=== PATIENT | male | born 1935 | race Asian ===

== ENCOUNTER 2017-09-21 21:09 | Inpatient (IN) | payer MEDICAID, OTHER ==
[~2017-09-21] VITALS: Ht 172.7 cm; Wt 63.4 kg
[2017-09-21 22:01] LABS: BASOPHILS # (AUTO) 0.1 X10'3 (0-0.2); BASOPHILS % (AUTO) 0.8 % (0-1); EOSINOPHILS # (AUTO) 0.2 X10'3 (0-0.9); EOSINOPHILS % (AUTO) 2.8 % (0-6); HEMATOCRIT 42.2 % (42.0-52.0); HEMOGLOBIN 14.4 g/dl (14.0-17.9); LYMPHOCYTES # (AUTO) 1.7 X10'3 (1.1-4.8); LYMPHOCYTES % (AUTO) 24.3 % (21-51); MEAN CORPUSCULAR HEMOGLOBIN 29.8 PG (27.0-31.0); MEAN CORPUSCULAR HGB CONC 34.1 % (33.0-36.5); MEAN CORPUSCULAR VOLUME 87.2 FL (78-98); MEAN PLATELET VOLUME 8.1 FL (7.4-10.4); MONOCYTES # (AUTO) 0.6 X10'3 (0-0.9); MONOCYTES % (AUTO) 8.1 % (2-12); NEUTROPHILS # (AUTO) 4.5 X10'3 (1.8-7.7); PLATELET COUNT 204 X10'3 (140-440); RED BLOOD COUNT 4.84 X10'6 (4.70-6.10); RED CELL DISTRIBUTION WIDTH 14.3 % (11.5-14.5)
[2017-09-21] MEDS ORDERED: nitroGLYCERIN 1gm ointment UD TP ONE (22:05)
[2017-09-21] MEDS ORDERED: aspirin 81mg tab.chew PO ONE (22:05)
[2017-09-21 22:11] LABS: INR 1.1 INR; PARTIAL THROMBOPLASTIN TIME 28 SECONDS (22-32); PROTHROMBIN TIME 10.9 SECONDS (9.0-12.0)
[2017-09-21 22:14] LABS: ALANINE AMINOTRANSFERASE 43 U/L (12-78); ALBUMIN 3.4 G/DL (3.4-5.0); ALBUMIN/GLOBULIN RATIO 0.7 (1.1-1.5); ALKALINE PHOSPHATASE 78 IU/L (46-116); ANION GAP 9 (8-16); ASPARTATE AMINO TRANSFERASE 47 U/L (10-37); BILIRUBIN,TOTAL 0.8 MG/DL (0.1-1.0); BLOOD UREA NITROGEN 29 MG/DL (7-18); CALCIUM 8.5 MG/DL (8.5-10.1); CHLORIDE 106 MMOL/L (99-107); CREATININE 1.45 MG/DL (0.60-1.10); GLUCOSE 257 MG/DL (70-104); SODIUM 139 MMOL/L (135-145); TOTAL PROTEIN 8.4 G/DL (6.4-8.2); eGFR 47 ML/MIN
[2017-09-21] MEDS ORDERED: NO HOME MEDS (22:28)
[2017-09-21] MEDS ORDERED: enoxaparin 100mg/ml syringe SUBCUT ONE (22:35)
[2017-09-21] MEDS ORDERED: ondansetron/PF 4mg/2ml inj IV PRN (22:55)
[2017-09-21] MEDS ORDERED: magnesium hydroxide 30ml (MOM) UD suspension PO PRN (22:55)
[2017-09-21] MEDS ORDERED: mag hydrox/Alum hydrox/simeth 30ml oral suspension PO PRN (22:55)
[2017-09-21] MEDS ORDERED: acetaminophen 325mg tablet PO PRN (22:55)
[2017-09-21] MEDS ORDERED: metoprolol tartrate 1mg/ml inj IV ONE (23:00)
[2017-09-21] MEDS ORDERED: MESSAGE TO PHARMACY PO ONE (23:05)
[2017-09-21] MEDS ORDERED: insulin Lispro (HumaLOG) vial - multi-dose SQ SCH (23:05)
[2017-09-21] MEDS ORDERED: dextrose 50%-water 50ml dispensing syringe IV PRN ×2 (23:05)
[2017-09-21] MEDS ORDERED: dextrose ORAL solution 15 GM/59 ML bottle PO PRN ×2 (23:05)
[2017-09-21] MEDS ORDERED: glucagon, human recombinant 1mg kit SUBCUT PRN (23:05)
[2017-09-21 23:17] LABS: HEMOGLOBIN A1C 5.8 % (4.5-6.2)
[2017-09-22] VITALS (15 sets, daily range): BP systolic 126–158; BP diastolic 79–106
[2017-09-22] MEDS: metoprolol tartrate 50mg tablet PO SCH ×3 (01:07→20:01)
[2017-09-22 03:24] LABS: BASOPHILS # (AUTO) 0.1 X10'3 (0-0.2); EOSINOPHILS # (AUTO) 0.1 X10'3 (0-0.9); EOSINOPHILS % (AUTO) 2.1 % (0-6); HEMATOCRIT 41.4 % (42.0-52.0); HEMOGLOBIN 14.1 g/dl (14.0-17.9); LYMPHOCYTES # (AUTO) 1.1 X10'3 (1.1-4.8); LYMPHOCYTES % (AUTO) 19.2 % (21-51); MEAN CORPUSCULAR HEMOGLOBIN 29.6 PG (27.0-31.0); MEAN CORPUSCULAR HGB CONC 34.2 % (33.0-36.5); MEAN CORPUSCULAR VOLUME 86.7 FL (78-98); MEAN PLATELET VOLUME 8.2 FL (7.4-10.4); MONOCYTES # (AUTO) 0.6 X10'3 (0-0.9); MONOCYTES % (AUTO) 10.1 % (2-12); NEUTROPHILS % (AUTO) 67.6 % (42-75); PLATELET COUNT 195 X10'3 (140-440); RED BLOOD COUNT 4.77 X10'6 (4.70-6.10); RED CELL DISTRIBUTION WIDTH 14.3 % (11.5-14.5); WHITE BLOOD COUNT 5.9 X10'3 (4.5-11.0)
[2017-09-22 03:43] LABS: ALANINE AMINOTRANSFERASE 41 U/L (12-78); ALBUMIN 3.2 G/DL (3.4-5.0); ALBUMIN/GLOBULIN RATIO 0.7 (1.1-1.5); ALKALINE PHOSPHATASE 72 IU/L (46-116); ANION GAP 9 (8-16); ASPARTATE AMINO TRANSFERASE 85 U/L (10-37); BILIRUBIN,TOTAL 0.6 MG/DL (0.1-1.0); BLOOD UREA NITROGEN 30 MG/DL (7-18); BUN/CREATININE RATIO 24.6 (5.4-32.0); CALCIUM 8.6 MG/DL (8.5-10.1); CHLORIDE 108 MMOL/L (99-107); CHOL/HDL RATIO 4.2 (0.00-4.99); CHOLESTEROL 195 MG/DL (0-200); CREATININE 1.22 MG/DL (0.60-1.10); GLUCOSE 110 MG/DL (70-104); HDL CHOLESTEROL 46 MG/DL (35-60); LDL CHOLESTEROL 133 MG/DL (50-100); POTASSIUM 4.1 MMOL/L (3.5-5.1); SODIUM 140 MMOL/L (135-145); TRIGLYCERIDES 105 MG/DL (20-135); eGFR 57 ML/MIN
[2017-09-22] MEDS ORDERED: pneumococcal 23-VAL P-sac vacc 25 mcg/0.5ml vial IMVAC ONE (06:25)
[2017-09-22] MEDS ORDERED: aspirin 325mg tablet PO SCH (08:30)
[2017-09-22] MEDS: atorvastatin 20mg tablet PO SCH (08:36)
[2017-09-22] MEDS: enoxaparin 30mg/0.3ml syringe SUBCUT SCH ×2 (08:36→20:01)
[2017-09-22] MEDS: aspirin 81mg tablet.DR PO SCH (08:36)
[2017-09-22] MEDS: enoxaparin 40mg/0.4ml syringe SUBCUT SCH ×2 (08:37→20:01)
[2017-09-22] MEDS ORDERED: morphine 2 MG/ML inj. syringe IV PRN (09:05)
[2017-09-22] MEDS: furosemide 20 MG/2 ML vial IV SCH ×2 (09:32→20:01)
[2017-09-22] MEDS: potassium Cl 20 mEq SR tablet PO SCH (09:32)
[2017-09-22] MEDS ORDERED: iohexol 350 MG/ML 50ML vial IV ONE ×3 (12:00→12:53)
[2017-09-22] MEDS ORDERED: LIDOcaine 1% w/EPI 1:100,000 30ml vial (MDV) ONE (12:00)
[2017-09-22] MEDS ORDERED: iohexol 350MG/ML 100ml bottle IV ONE (12:00)
[2017-09-22] MEDS ORDERED: midazolam 2 mg/2 ml injection ONE (12:25)
[2017-09-22] MEDS ORDERED: fentaNYL/PF 50MCG/1 ML 2ML syringe ONE (12:25)
[2017-09-22] MEDS ORDERED: ondansetron/PF 4mg/2ml inj IV PRN (13:40)
[2017-09-22] MEDS ORDERED: HYDROcodone/acetaminophen 5mg/325mg tablet PO PRN (13:40)
[2017-09-22] MEDS ORDERED: acetaminophen 325mg tablet PO PRN (13:45)
[2017-09-22] MEDS ORDERED: HYDROcodone/acetaminophen 10/325mg tab PO PRN (13:45)
[2017-09-22] MEDS ORDERED: proCHLORperazine 10 MG/2 ml inj IV PRN (13:45)
[2017-09-22] MEDS ORDERED: sodium chloride 0.45% 1,000 ML IV SCH (13:45)
[2017-09-22] MEDS: lisinopril 5mg tablet PO SCH (17:14)
[2017-09-22] MEDS ORDERED: insulin glargine (Lantus) pen - multi-dose SQ SCH (21:00)
[2017-09-23 02:00] VITALS: BP 145/92
[2017-09-23] MEDS: OXAZEpam 15mg capsule PO PRN (02:59)
[2017-09-23 05:23] LABS: BASOPHILS % (AUTO) 0.2 % (0-1); EOSINOPHILS # (AUTO) 0.1 X10'3 (0-0.9); EOSINOPHILS % (AUTO) 0.7 % (0-6); HEMATOCRIT 42.4 % (42.0-52.0); HEMOGLOBIN 14.5 g/dl (14.0-17.9); LYMPHOCYTES % (AUTO) 12.6 % (21-51); MEAN CORPUSCULAR HEMOGLOBIN 29.5 PG (27.0-31.0); MEAN CORPUSCULAR HGB CONC 34.2 % (33.0-36.5); MEAN CORPUSCULAR VOLUME 86.3 FL (78-98); MEAN PLATELET VOLUME 9.1 FL (7.4-10.4); MONOCYTES # (AUTO) 0.8 X10'3 (0-0.9); MONOCYTES % (AUTO) 10.1 % (2-12); NEUTROPHILS % (AUTO) 76.4 % (42-75); PLATELET COUNT 206 X10'3 (140-440); RED BLOOD COUNT 4.91 X10'6 (4.70-6.10); RED CELL DISTRIBUTION WIDTH 13.7 % (11.5-14.5); WHITE BLOOD COUNT 7.8 X10'3 (4.5-11.0)
[2017-09-23 05:36] LABS: ALANINE AMINOTRANSFERASE 41 U/L (12-78); ALBUMIN 3.1 G/DL (3.4-5.0); ALBUMIN/GLOBULIN RATIO 0.6 (1.1-1.5); ALKALINE PHOSPHATASE 74 IU/L (46-116); ANION GAP 12 (8-16); ASPARTATE AMINO TRANSFERASE 50 U/L (10-37); BILIRUBIN,TOTAL 0.8 MG/DL (0.1-1.0); BLOOD UREA NITROGEN 38 MG/DL (7-18); BUN/CREATININE RATIO 25.2 (5.4-32.0); CALCIUM 8.8 MG/DL (8.5-10.1); CHLORIDE 105 MMOL/L (99-107); CREATININE 1.51 MG/DL (0.60-1.10); GLUCOSE 141 MG/DL (70-104); SODIUM 140 MMOL/L (135-145); TOTAL CARBON DIOXIDE 23.2 MMOL/L (24-32); TOTAL PROTEIN 7.9 G/DL (6.4-8.2); eGFR 45 ML/MIN
[2017-09-23 05:51] LABS: TROPONIN I 13.01 NG/ML (0.0-0.05)
[2017-09-23 06:31] VITALS: BP 143/66
[2017-09-23] MEDS: metoprolol tartrate 50mg tablet PO SCH ×2 (07:26→20:24)
[2017-09-23] MEDS: aspirin 81mg tablet.DR PO SCH (07:26)
[2017-09-23] MEDS: lisinopril 5mg tablet PO SCH ×2 (07:26→20:24)
[2017-09-23] MEDS: potassium Cl 20 mEq SR tablet PO SCH (07:26)
[2017-09-23] MEDS: atorvastatin 20mg tablet PO SCH (07:26)
[2017-09-23] MEDS: furosemide 20 MG/2 ML vial IV SCH ×2 (07:26→20:24)
[2017-09-23] MEDS: enoxaparin 30mg/0.3ml syringe SUBCUT SCH ×2 (07:27→20:25)
[2017-09-23] MEDS: enoxaparin 40mg/0.4ml syringe SUBCUT SCH ×2 (07:27→20:25)
[2017-09-23 11:37] VITALS: BP 137/79
[2017-09-23 15:00] VITALS: BP 122/75
[2017-09-23 18:00] VITALS: BP 129/74
[2017-09-23 22:00] VITALS: BP 123/68
[2017-09-24 02:00] VITALS: BP 130/83
[2017-09-24 06:00] VITALS: BP 138/87
[2017-09-24] MEDS: furosemide 20 MG/2 ML vial IV SCH ×2 (07:22→21:18)
[2017-09-24] MEDS: potassium Cl 20 mEq SR tablet PO SCH (07:22)
[2017-09-24] MEDS: metoprolol tartrate 50mg tablet PO SCH ×2 (07:22→21:18)
[2017-09-24] MEDS: atorvastatin 20mg tablet PO SCH (07:22)
[2017-09-24] MEDS: enoxaparin 40mg/0.4ml syringe SUBCUT SCH ×2 (07:23→21:21)
[2017-09-24] MEDS: enoxaparin 30mg/0.3ml syringe SUBCUT SCH ×2 (07:23→21:19)
[2017-09-24] MEDS: lisinopril 5mg tablet PO SCH ×2 (07:23→21:18)
[2017-09-24] MEDS: aspirin 81mg tablet.DR PO SCH (07:25)
[2017-09-24 08:32] LABS: ALANINE AMINOTRANSFERASE 38 U/L (12-78); ALBUMIN 2.9 G/DL (3.4-5.0); ALBUMIN/GLOBULIN RATIO 0.6 (1.1-1.5); ALKALINE PHOSPHATASE 67 IU/L (46-116); ANION GAP 7 (8-16); ASPARTATE AMINO TRANSFERASE 33 U/L (10-37); BILIRUBIN,TOTAL 0.9 MG/DL (0.1-1.0); BLOOD UREA NITROGEN 51 MG/DL (7-18); BUN/CREATININE RATIO 31.7 (5.4-32.0); CALCIUM 8.7 MG/DL (8.5-10.1); CHLORIDE 104 MMOL/L (99-107); CREATININE 1.61 MG/DL (0.60-1.10); GLUCOSE 113 MG/DL (70-104); POTASSIUM 3.5 MMOL/L (3.5-5.1); SODIUM 138 MMOL/L (135-145); TOTAL CARBON DIOXIDE 26.7 MMOL/L (24-32); TOTAL PROTEIN 7.4 G/DL (6.4-8.2); eGFR 41 ML/MIN
[2017-09-24 11:00] VITALS: BP 127/78
[2017-09-24 15:00] VITALS: BP 133/74
[2017-09-24] MEDS: nitroGLYCERIN 0.2mg/hour patch TD SCH (17:23)
[2017-09-24 18:00] VITALS: BP 125/48
[2017-09-24 22:00] VITALS: BP 118/65
[2017-09-25] MEDS: OXAZEpam 15mg capsule PO PRN (01:01)
[2017-09-25 02:00] VITALS: BP 105/52
[2017-09-25 05:35] LABS: ALANINE AMINOTRANSFERASE 60 U/L (12-78); ALBUMIN 2.7 G/DL (3.4-5.0); ALBUMIN/GLOBULIN RATIO 0.6 (1.1-1.5); ALKALINE PHOSPHATASE 77 IU/L (46-116); ANION GAP 5 (8-16); ASPARTATE AMINO TRANSFERASE 53 U/L (10-37); BILIRUBIN,TOTAL 0.8 MG/DL (0.1-1.0); BLOOD UREA NITROGEN 48 MG/DL (7-18); CALCIUM 8.4 MG/DL (8.5-10.1); CHLORIDE 102 MMOL/L (99-107); CREATININE 1.41 MG/DL (0.60-1.10); GLUCOSE 134 MG/DL (70-104); POTASSIUM 3.4 MMOL/L (3.5-5.1); SODIUM 135 MMOL/L (135-145); TOTAL CARBON DIOXIDE 28.5 MMOL/L (24-32); TOTAL PROTEIN 7.3 G/DL (6.4-8.2); eGFR 48 ML/MIN
[2017-09-25 07:00] VITALS: BP 120/73
[2017-09-25] MEDS: potassium Cl 20 mEq SR tablet PO SCH ×2 (07:25→19:39)
[2017-09-25] MEDS: lisinopril 5mg tablet PO SCH ×2 (07:25→19:39)
[2017-09-25] MEDS: furosemide 20 MG/2 ML vial IV SCH ×2 (07:25→19:38)
[2017-09-25] MEDS: enoxaparin 40mg/0.4ml syringe SUBCUT SCH ×2 (07:25→19:41)
[2017-09-25] MEDS: enoxaparin 30mg/0.3ml syringe SUBCUT SCH ×2 (07:25→19:40)
[2017-09-25] MEDS: metoprolol tartrate 50mg tablet PO SCH ×2 (07:25→19:38)
[2017-09-25] MEDS: atorvastatin 20mg tablet PO SCH (07:25)
[2017-09-25] MEDS: aspirin 81mg tablet.DR PO SCH (07:31)
[2017-09-25] MEDS: nitroGLYCERIN 0.2mg/hour patch TD SCH (10:24)
[2017-09-25 11:00] VITALS: BP 106/62
[2017-09-25 15:00] VITALS: BP 116/64
[2017-09-25 19:00] VITALS: BP 99/48
[2017-09-25 23:00] VITALS: BP 91/45
[2017-09-26 03:00] VITALS: BP 129/71
[2017-09-26 05:20] LABS: BASOPHILS % (AUTO) 0.5 % (0-1); EOSINOPHILS # (AUTO) 0.5 X10'3 (0-0.9); EOSINOPHILS % (AUTO) 7.4 % (0-6); HEMATOCRIT 41.3 % (42.0-52.0); HEMOGLOBIN 14.2 g/dl (14.0-17.9); LYMPHOCYTES # (AUTO) 1.1 X10'3 (1.1-4.8); MEAN CORPUSCULAR HEMOGLOBIN 29.9 PG (27.0-31.0); MEAN CORPUSCULAR HGB CONC 34.5 % (33.0-36.5); MEAN CORPUSCULAR VOLUME 86.6 FL (78-98); MEAN PLATELET VOLUME 8.7 FL (7.4-10.4); MONOCYTES # (AUTO) 0.9 X10'3 (0-0.9); MONOCYTES % (AUTO) 12.8 % (2-12); NEUTROPHILS # (AUTO) 4.7 X10'3 (1.8-7.7); NEUTROPHILS % (AUTO) 64.3 % (42-75); PLATELET COUNT 189 X10'3 (140-440); RED BLOOD COUNT 4.76 X10'6 (4.70-6.10); RED CELL DISTRIBUTION WIDTH 14.5 % (11.5-14.5); WHITE BLOOD COUNT 7.3 X10'3 (4.5-11.0)
[2017-09-26 05:34] LABS: ALANINE AMINOTRANSFERASE 62 U/L (12-78); ALBUMIN 2.7 G/DL (3.4-5.0); ALBUMIN/GLOBULIN RATIO 0.6 (1.1-1.5); ALKALINE PHOSPHATASE 94 IU/L (46-116); ANION GAP 6 (8-16); ASPARTATE AMINO TRANSFERASE 43 U/L (10-37); BILIRUBIN,TOTAL 0.8 MG/DL (0.1-1.0); BLOOD UREA NITROGEN 47 MG/DL (7-18); BUN/CREATININE RATIO 28.3 (5.4-32.0); CALCIUM 8.4 MG/DL (8.5-10.1); CHLORIDE 101 MMOL/L (99-107); CREATININE 1.66 MG/DL (0.60-1.10); GLUCOSE 130 MG/DL (70-104); POTASSIUM 4.3 MMOL/L (3.5-5.1); SODIUM 136 MMOL/L (135-145); TOTAL CARBON DIOXIDE 29.4 MMOL/L (24-32); TOTAL PROTEIN 7.4 G/DL (6.4-8.2); eGFR 40 ML/MIN
[2017-09-26 07:00] VITALS: BP 114/64
[2017-09-26] MEDS: furosemide 20 MG/2 ML vial IV SCH (07:44)
[2017-09-26] MEDS: potassium Cl 20 mEq SR tablet PO SCH (07:44)
[2017-09-26] MEDS: atorvastatin 20mg tablet PO SCH (07:44)
[2017-09-26] MEDS: aspirin 81mg tablet.DR PO SCH (07:44)
[2017-09-26] MEDS: enoxaparin 40mg/0.4ml syringe SUBCUT SCH (07:44)
[2017-09-26] MEDS: enoxaparin 30mg/0.3ml syringe SUBCUT SCH (07:44)
[2017-09-26] MEDS: lisinopril 5mg tablet PO SCH ×2 (07:44→19:34)
[2017-09-26] MEDS: metoprolol tartrate 50mg tablet PO SCH ×2 (07:45→19:34)
[2017-09-26] MEDS: nitroGLYCERIN 0.2mg/hour patch TD SCH (07:48)
[2017-09-26 15:00] VITALS: BP 107/46
[2017-09-26] MEDS ORDERED: guaiFENesin/DM 10ml UD oral syrup PO PRN (15:00)
[2017-09-26 19:00] VITALS: BP 121/56
[2017-09-26] MEDS ORDERED: guaiFENesin/DM oral syrup 5 ML CUP PO PRN (19:31)
[2017-09-26 23:00] VITALS: BP 103/55
[2017-09-27 03:00] VITALS: BP 113/56
[2017-09-27 05:50] LABS: ALBUMIN 2.7 G/DL (3.4-5.0); ANION GAP 6 (8-16); BLOOD UREA NITROGEN 48 MG/DL (7-18); BUN/CREATININE RATIO 32.7 (5.4-32.0); CALCIUM 8.4 MG/DL (8.5-10.1); CHLORIDE 101 MMOL/L (99-107); CREATININE 1.47 MG/DL (0.60-1.10); GLUCOSE 115 MG/DL (70-104); POTASSIUM 4.5 MMOL/L (3.5-5.1); SODIUM 135 MMOL/L (135-145); TOTAL CARBON DIOXIDE 28.3 MMOL/L (24-32); eGFR 46 ML/MIN
[2017-09-27 07:00] VITALS: BP 120/63
[2017-09-27] MEDS: nitroGLYCERIN 0.2mg/hour patch TD SCH (07:08)
[2017-09-27] MEDS: aspirin 81mg tablet.DR PO SCH (07:09)
[2017-09-27] MEDS: metoprolol tartrate 50mg tablet PO SCH ×2 (07:09→18:59)
[2017-09-27] MEDS: potassium Cl 20 mEq SR tablet PO SCH (07:09)
[2017-09-27] MEDS: atorvastatin 20mg tablet PO SCH (07:09)
[2017-09-27] MEDS: furosemide 20 MG/2 ML vial IV SCH (07:10)
[2017-09-27] MEDS: lisinopril 5mg tablet PO SCH ×2 (07:10→18:59)
[2017-09-27] MEDS: enoxaparin 60mg/0.6ml syringe SUBCUT SCH (07:10)
[2017-09-27 11:00] VITALS: BP 104/48
[2017-09-27 15:00] VITALS: BP 116/59
[2017-09-27 19:00] VITALS: BP 118/61
[2017-09-27 23:00] VITALS: BP 118/58
[2017-09-28 03:00] VITALS: BP 118/54
[2017-09-28 06:00] VITALS: BP 119/59
[2017-09-28 06:09] LABS: ALBUMIN 2.8 G/DL (3.4-5.0); ANION GAP 5 (8-16); BLOOD UREA NITROGEN 45 MG/DL (7-18); BUN/CREATININE RATIO 26.2 (5.4-32.0); CALCIUM 8.7 MG/DL (8.5-10.1); CHLORIDE 100 MMOL/L (99-107); CREATININE 1.72 MG/DL (0.60-1.10); GLUCOSE 121 MG/DL (70-104); POTASSIUM 4.6 MMOL/L (3.5-5.1); SODIUM 134 MMOL/L (135-145); TOTAL CARBON DIOXIDE 29.3 MMOL/L (24-32); eGFR 38 ML/MIN
[2017-09-28] MEDS: potassium Cl 20 mEq SR tablet PO SCH (07:21)
[2017-09-28] MEDS: furosemide 20 MG/2 ML vial IV SCH (07:21)
[2017-09-28] MEDS: metoprolol tartrate 50mg tablet PO SCH ×2 (07:22→20:12)
[2017-09-28] MEDS: lisinopril 5mg tablet PO SCH ×2 (07:22→20:12)
[2017-09-28] MEDS: enoxaparin 60mg/0.6ml syringe SUBCUT SCH (07:22)
[2017-09-28] MEDS: atorvastatin 20mg tablet PO SCH (07:22)
[2017-09-28] MEDS: nitroGLYCERIN 0.2mg/hour patch TD SCH ×2 (07:26→07:29)
[2017-09-28] MEDS: aspirin 81mg tablet.DR PO SCH (07:28)
[2017-09-28 14:15] VITALS: BP 103/57
[2017-09-28 19:00] VITALS: BP 112/56
[2017-09-28 23:00] VITALS: BP 112/59
[2017-09-29 03:00] VITALS: BP 111/60
[2017-09-29 05:07] LABS: BASOPHILS # (AUTO) 0.1 X10'3 (0-0.2); BASOPHILS % (AUTO) 0.7 % (0-1); EOSINOPHILS # (AUTO) 0.7 X10'3 (0-0.9); EOSINOPHILS % (AUTO) 9.2 % (0-6); HEMATOCRIT 40.9 % (42.0-52.0); HEMOGLOBIN 13.9 g/dl (14.0-17.9); LYMPHOCYTES # (AUTO) 1.2 X10'3 (1.1-4.8); LYMPHOCYTES % (AUTO) 17.1 % (21-51); MEAN CORPUSCULAR HEMOGLOBIN 29.5 PG (27.0-31.0); MEAN CORPUSCULAR HGB CONC 33.9 % (33.0-36.5); MEAN PLATELET VOLUME 8.7 FL (7.4-10.4); MONOCYTES # (AUTO) 0.8 X10'3 (0-0.9); MONOCYTES % (AUTO) 11.2 % (2-12); NEUTROPHILS # (AUTO) 4.5 X10'3 (1.8-7.7); NEUTROPHILS % (AUTO) 61.8 % (42-75); PLATELET COUNT 200 X10'3 (140-440); RED CELL DISTRIBUTION WIDTH 13.9 % (11.5-14.5); WHITE BLOOD COUNT 7.3 X10'3 (4.5-11.0)
[2017-09-29 05:59] LABS: ALBUMIN 2.7 G/DL (3.4-5.0); ANION GAP 5 (8-16); BLOOD UREA NITROGEN 46 MG/DL (7-18); BUN/CREATININE RATIO 28.6 (5.4-32.0); CALCIUM 8.5 MG/DL (8.5-10.1); CHLORIDE 101 MMOL/L (99-107); CREATININE 1.61 MG/DL (0.60-1.10); GLUCOSE 122 MG/DL (70-104); SODIUM 134 MMOL/L (135-145); TOTAL CARBON DIOXIDE 28.1 MMOL/L (24-32); eGFR 41 ML/MIN
[2017-09-29 06:59] VITALS: BP 123/61
[2017-09-29] MEDS: potassium Cl 20 mEq SR tablet PO SCH (08:00)
[2017-09-29] MEDS: nitroGLYCERIN 0.2mg/hour patch TD SCH (08:00)
[2017-09-29] MEDS: lisinopril 5mg tablet PO SCH ×2 (08:39→19:58)
[2017-09-29] MEDS: metoprolol tartrate 50mg tablet PO SCH ×2 (08:39→19:58)
[2017-09-29] MEDS: furosemide 20 MG/2 ML vial IV SCH (08:39)
[2017-09-29] MEDS: atorvastatin 20mg tablet PO SCH (08:39)
[2017-09-29] MEDS: aspirin 81mg tablet.DR PO SCH (08:39)
[2017-09-29] MEDS: enoxaparin 60mg/0.6ml syringe SUBCUT SCH (08:40)
[2017-09-29 11:00] VITALS: BP 112/58
[2017-09-29 15:00] VITALS: BP 107/53
[2017-09-29 18:00] VITALS: BP 121/59
[2017-09-29 22:00] VITALS: BP 120/63
[2017-09-30 02:00] VITALS: BP 123/70
[2017-09-30 04:49] LABS: BASOPHILS # (AUTO) 0.1 X10'3 (0-0.2); BASOPHILS % (AUTO) 0.8 % (0-1); EOSINOPHILS # (AUTO) 0.7 X10'3 (0-0.9); EOSINOPHILS % (AUTO) 10.3 % (0-6); HEMATOCRIT 42.9 % (42.0-52.0); HEMOGLOBIN 14.5 g/dl (14.0-17.9); LYMPHOCYTES # (AUTO) 1.1 X10'3 (1.1-4.8); LYMPHOCYTES % (AUTO) 16.6 % (21-51); MEAN CORPUSCULAR HEMOGLOBIN 29.4 PG (27.0-31.0); MEAN CORPUSCULAR HGB CONC 33.7 % (33.0-36.5); MEAN CORPUSCULAR VOLUME 87.1 FL (78-98); MEAN PLATELET VOLUME 8.1 FL (7.4-10.4); MONOCYTES # (AUTO) 0.8 X10'3 (0-0.9); MONOCYTES % (AUTO) 11.5 % (2-12); NEUTROPHILS # (AUTO) 4.2 X10'3 (1.8-7.7); NEUTROPHILS % (AUTO) 60.8 % (42-75); PLATELET COUNT 219 X10'3 (140-440); RED BLOOD COUNT 4.93 X10'6 (4.70-6.10); RED CELL DISTRIBUTION WIDTH 13.8 % (11.5-14.5); WHITE BLOOD COUNT 6.9 X10'3 (4.5-11.0)
[2017-09-30 05:08] LABS: ALBUMIN 2.8 G/DL (3.4-5.0); ANION GAP 5 (8-16); BLOOD UREA NITROGEN 46 MG/DL (7-18); BUN/CREATININE RATIO 28.4 (5.4-32.0); CALCIUM 8.5 MG/DL (8.5-10.1); CHLORIDE 100 MMOL/L (99-107); CREATININE 1.62 MG/DL (0.60-1.10); GLUCOSE 120 MG/DL (70-104); POTASSIUM 4.9 MMOL/L (3.5-5.1); SODIUM 133 MMOL/L (135-145); TOTAL CARBON DIOXIDE 28.1 MMOL/L (24-32); eGFR 41 ML/MIN
[2017-09-30 06:57] VITALS: BP 122/60
[2017-09-30] MEDS: metoprolol tartrate 50mg tablet PO SCH ×2 (07:55→20:28)
[2017-09-30] MEDS: aspirin 81mg tablet.DR PO SCH (07:55)
[2017-09-30] MEDS: furosemide 20 MG/2 ML vial IV SCH (07:55)
[2017-09-30] MEDS: lisinopril 5mg tablet PO SCH ×2 (07:55→20:28)
[2017-09-30] MEDS: atorvastatin 20mg tablet PO SCH (07:55)
[2017-09-30] MEDS: potassium Cl 20 mEq SR tablet PO SCH (07:56)
[2017-09-30] MEDS: enoxaparin 60mg/0.6ml syringe SUBCUT SCH (07:56)
[2017-09-30] MEDS: nitroGLYCERIN 0.2mg/hour patch TD SCH (07:57)
[2017-09-30 11:00] VITALS: BP 105/55
[2017-09-30] MEDS ORDERED: mineral oil/petrolatum, white cream 113gm jar TP PRN (13:00)
[2017-09-30 15:00] VITALS: BP 103/48
[2017-09-30 19:00] VITALS: BP 127/57
[2017-09-30 23:00] VITALS: BP 107/52
[2017-10-01 03:00] VITALS: BP 114/52
[2017-10-01 05:35] LABS: BASOPHILS % (AUTO) 0.3 % (0-1); EOSINOPHILS # (AUTO) 0.6 X10'3 (0-0.9); EOSINOPHILS % (AUTO) 8.7 % (0-6); HEMOGLOBIN 14.4 g/dl (14.0-17.9); LYMPHOCYTES # (AUTO) 1.1 X10'3 (1.1-4.8); LYMPHOCYTES % (AUTO) 16.3 % (21-51); MEAN CORPUSCULAR HEMOGLOBIN 29.8 PG (27.0-31.0); MEAN CORPUSCULAR HGB CONC 34.2 % (33.0-36.5); MEAN CORPUSCULAR VOLUME 87.1 FL (78-98); MEAN PLATELET VOLUME 8.8 FL (7.4-10.4); MONOCYTES # (AUTO) 0.7 X10'3 (0-0.9); MONOCYTES % (AUTO) 10.4 % (2-12); NEUTROPHILS # (AUTO) 4.5 X10'3 (1.8-7.7); NEUTROPHILS % (AUTO) 64.3 % (42-75); PLATELET COUNT 217 X10'3 (140-440); RED BLOOD COUNT 4.82 X10'6 (4.70-6.10); RED CELL DISTRIBUTION WIDTH 13.6 % (11.5-14.5)
[2017-10-01 06:11] LABS: ALBUMIN 2.8 G/DL (3.4-5.0); ANION GAP 6 (8-16); BLOOD UREA NITROGEN 58 MG/DL (7-18); BUN/CREATININE RATIO 29.7 (5.4-32.0); CALCIUM 8.6 MG/DL (8.5-10.1); CHLORIDE 99 MMOL/L (99-107); CREATININE 1.95 MG/DL (0.60-1.10); GLUCOSE 119 MG/DL (70-104); POTASSIUM 4.7 MMOL/L (3.5-5.1); SODIUM 134 MMOL/L (135-145); TOTAL CARBON DIOXIDE 29.2 MMOL/L (24-32); eGFR 33 ML/MIN
[2017-10-01 07:13] VITALS: BP 115/50
[2017-10-01] MEDS: furosemide 20 MG/2 ML vial IV SCH (07:57)
[2017-10-01] MEDS: lisinopril 5mg tablet PO SCH ×2 (07:58→19:28)
[2017-10-01] MEDS: atorvastatin 20mg tablet PO SCH (07:58)
[2017-10-01] MEDS: metoprolol tartrate 50mg tablet PO SCH ×2 (07:58→19:28)
[2017-10-01] MEDS: potassium Cl 20 mEq SR tablet PO SCH (07:58)
[2017-10-01] MEDS: aspirin 81mg tablet.DR PO SCH (07:59)
[2017-10-01] MEDS: nitroGLYCERIN 0.2mg/hour patch TD SCH (07:59)
[2017-10-01] MEDS: enoxaparin 60mg/0.6ml syringe SUBCUT SCH (07:59)
[2017-10-01 11:00] VITALS: BP 105/52
[2017-10-01 15:00] VITALS: BP 106/60
[2017-10-01 19:00] VITALS: BP 113/55
[2017-10-01 23:00] VITALS: BP 110/59
[2017-10-02] VITALS (7 sets, daily range): BP systolic 98–115; BP diastolic 38–57
[2017-10-02 06:51] LABS: BASOPHILS # (AUTO) 0.1 X10'3 (0-0.2); BASOPHILS % (AUTO) 0.8 % (0-1); EOSINOPHILS # (AUTO) 0.6 X10'3 (0-0.9); EOSINOPHILS % (AUTO) 9.4 % (0-6); HEMATOCRIT 42.6 % (42.0-52.0); HEMOGLOBIN 14.4 g/dl (14.0-17.9); LYMPHOCYTES # (AUTO) 1.1 X10'3 (1.1-4.8); LYMPHOCYTES % (AUTO) 16.7 % (21-51); MEAN CORPUSCULAR HEMOGLOBIN 29.4 PG (27.0-31.0); MEAN CORPUSCULAR HGB CONC 33.8 % (33.0-36.5); MEAN CORPUSCULAR VOLUME 86.9 FL (78-98); MEAN PLATELET VOLUME 8.6 FL (7.4-10.4); MONOCYTES # (AUTO) 0.7 X10'3 (0-0.9); MONOCYTES % (AUTO) 10.7 % (2-12); NEUTROPHILS # (AUTO) 4.2 X10'3 (1.8-7.7); NEUTROPHILS % (AUTO) 62.4 % (42-75); PLATELET COUNT 231 X10'3 (140-440); RED BLOOD COUNT 4.91 X10'6 (4.70-6.10); RED CELL DISTRIBUTION WIDTH 13.7 % (11.5-14.5); WHITE BLOOD COUNT 6.8 X10'3 (4.5-11.0)
[2017-10-02] MEDS: potassium Cl 20 mEq SR tablet PO SCH (07:54)
[2017-10-02] MEDS: metoprolol tartrate 50mg tablet PO SCH ×2 (07:54→20:26)
[2017-10-02] MEDS: aspirin 81mg tablet.DR PO SCH (07:54)
[2017-10-02] MEDS: lisinopril 5mg tablet PO SCH ×2 (07:54→20:26)
[2017-10-02] MEDS: furosemide 20 MG/2 ML vial IV SCH (07:54)
[2017-10-02] MEDS: atorvastatin 20mg tablet PO SCH (07:55)
[2017-10-02] MEDS: enoxaparin 60mg/0.6ml syringe SUBCUT SCH (07:55)
[2017-10-02] MEDS: nitroGLYCERIN 0.2mg/hour patch TD SCH (07:56)
[2017-10-03] VITALS (7 sets, daily range): BP systolic 103–123; BP diastolic 40–60
[2017-10-03] MEDS: atorvastatin 20mg tablet PO SCH (07:56)
[2017-10-03] MEDS: metoprolol tartrate 50mg tablet PO SCH ×2 (07:56→20:09)
[2017-10-03] MEDS: lisinopril 5mg tablet PO SCH ×2 (07:57→20:09)
[2017-10-03] MEDS: nitroGLYCERIN 0.2mg/hour patch TD SCH (07:57)
[2017-10-03] MEDS: furosemide 20 MG/2 ML vial IV SCH (07:57)
[2017-10-03] MEDS: potassium Cl 20 mEq SR tablet PO SCH (07:57)
[2017-10-03] MEDS: enoxaparin 60mg/0.6ml syringe SUBCUT SCH (07:57)
[2017-10-03] MEDS: aspirin 81mg tablet.DR PO SCH (07:57)
[2017-10-03 11:48] LABS: ALANINE AMINOTRANSFERASE 48 U/L (12-78); ALBUMIN 2.8 G/DL (3.4-5.0); ALBUMIN/GLOBULIN RATIO 0.6 (1.1-1.5); ALKALINE PHOSPHATASE 143 IU/L (46-116); ANION GAP 7 (8-16); ASPARTATE AMINO TRANSFERASE 26 U/L (10-37); BILIRUBIN,TOTAL 0.4 MG/DL (0.1-1.0); BLOOD UREA NITROGEN 64 MG/DL (7-18); CALCIUM 8.3 MG/DL (8.5-10.1); CHLORIDE 101 MMOL/L (99-107); GLUCOSE 115 MG/DL (70-104); POTASSIUM 4.6 MMOL/L (3.5-5.1); SODIUM 137 MMOL/L (135-145); TOTAL CARBON DIOXIDE 29.5 MMOL/L (24-32); TOTAL PROTEIN 7.6 G/DL (6.4-8.2); eGFR 32 ML/MIN
[2017-10-03 11:52] LABS: BASOPHILS % (AUTO) 0.6 % (0-1); EOSINOPHILS # (AUTO) 0.7 X10'3 (0-0.9); EOSINOPHILS % (AUTO) 10.1 % (0-6); HEMOGLOBIN 13.9 g/dl (14.0-17.9); LYMPHOCYTES % (AUTO) 15.4 % (21-51); MEAN CORPUSCULAR HEMOGLOBIN 29.3 PG (27.0-31.0); MEAN CORPUSCULAR HGB CONC 33.9 % (33.0-36.5); MEAN CORPUSCULAR VOLUME 86.4 FL (78-98); MEAN PLATELET VOLUME 8.6 FL (7.4-10.4); MONOCYTES # (AUTO) 0.7 X10'3 (0-0.9); MONOCYTES % (AUTO) 11.2 % (2-12); NEUTROPHILS # (AUTO) 4.1 X10'3 (1.8-7.7); NEUTROPHILS % (AUTO) 62.7 % (42-75); PLATELET COUNT 220 X10'3 (140-440); RED BLOOD COUNT 4.74 X10'6 (4.70-6.10); RED CELL DISTRIBUTION WIDTH 13.7 % (11.5-14.5); WHITE BLOOD COUNT 6.6 X10'3 (4.5-11.0)
[2017-10-04 03:00] VITALS: BP 107/52
[2017-10-04 05:51] LABS: BASOPHILS % (AUTO) 0.6 % (0-1); EOSINOPHILS # (AUTO) 0.7 X10'3 (0-0.9); EOSINOPHILS % (AUTO) 9.9 % (0-6); HEMATOCRIT 40.6 % (42.0-52.0); HEMOGLOBIN 13.8 g/dl (14.0-17.9); LYMPHOCYTES # (AUTO) 1.2 X10'3 (1.1-4.8); MEAN CORPUSCULAR HEMOGLOBIN 29.3 PG (27.0-31.0); MEAN CORPUSCULAR HGB CONC 33.9 % (33.0-36.5); MEAN CORPUSCULAR VOLUME 86.4 FL (78-98); MEAN PLATELET VOLUME 8.7 FL (7.4-10.4); MONOCYTES # (AUTO) 0.7 X10'3 (0-0.9); MONOCYTES % (AUTO) 10.4 % (2-12); NEUTROPHILS # (AUTO) 4.4 X10'3 (1.8-7.7); NEUTROPHILS % (AUTO) 62.1 % (42-75); PLATELET COUNT 230 X10'3 (140-440); RED CELL DISTRIBUTION WIDTH 13.8 % (11.5-14.5); WHITE BLOOD COUNT 7.1 X10'3 (4.5-11.0)
[2017-10-04 06:07] LABS: ALANINE AMINOTRANSFERASE 55 U/L (12-78); ALBUMIN 2.8 G/DL (3.4-5.0); ALBUMIN/GLOBULIN RATIO 0.6 (1.1-1.5); ALKALINE PHOSPHATASE 131 IU/L (46-116); ANION GAP 5 (8-16); ASPARTATE AMINO TRANSFERASE 21 U/L (10-37); BILIRUBIN,TOTAL 0.4 MG/DL (0.1-1.0); BLOOD UREA NITROGEN 64 MG/DL (7-18); BUN/CREATININE RATIO 31.1 (5.4-32.0); CALCIUM 8.3 MG/DL (8.5-10.1); CHLORIDE 102 MMOL/L (99-107); CREATININE 2.06 MG/DL (0.60-1.10); GLUCOSE 114 MG/DL (70-104); POTASSIUM 5.3 MMOL/L (3.5-5.1); SODIUM 136 MMOL/L (135-145); TOTAL CARBON DIOXIDE 28.7 MMOL/L (24-32); TOTAL PROTEIN 7.7 G/DL (6.4-8.2); eGFR 31 ML/MIN
[2017-10-04 07:00] VITALS: BP 110/53
[2017-10-04] MEDS: lisinopril 5mg tablet PO SCH ×2 (07:06→20:04)
[2017-10-04] MEDS: furosemide 20 MG/2 ML vial IV SCH (07:06)
[2017-10-04] MEDS: enoxaparin 60mg/0.6ml syringe SUBCUT SCH (07:06)
[2017-10-04] MEDS: atorvastatin 20mg tablet PO SCH (07:06)
[2017-10-04] MEDS: metoprolol tartrate 50mg tablet PO SCH ×2 (07:06→20:04)
[2017-10-04] MEDS: nitroGLYCERIN 0.2mg/hour patch TD SCH (07:11)
[2017-10-04] MEDS: potassium Cl 20 mEq SR tablet PO SCH (07:11)
[2017-10-04] MEDS: aspirin 81mg tablet.DR PO SCH (07:15)
[2017-10-04] MEDS ORDERED: sodium polystyrene sulfonate 15gm/60ml oral suspension PO ONE (09:40)
[2017-10-04 11:00] VITALS: BP 121/57
[2017-10-04 15:00] VITALS: BP 120/63
[2017-10-04 19:00] VITALS: BP 144/62
[2017-10-04 23:00] VITALS: BP 126/52
[2017-10-05 03:00] VITALS: BP 112/55
[2017-10-05 06:00] VITALS: BP 115/56
[2017-10-05] MEDS: metoprolol tartrate 50mg tablet PO SCH ×2 (07:53→20:18)
[2017-10-05] MEDS: aspirin 81mg tablet.DR PO SCH (07:53)
[2017-10-05] MEDS: enoxaparin 60mg/0.6ml syringe SUBCUT SCH (07:53)
[2017-10-05] MEDS: furosemide 20 MG/2 ML vial IV SCH (07:53)
[2017-10-05] MEDS: lisinopril 5mg tablet PO SCH ×2 (07:53→20:18)
[2017-10-05] MEDS: atorvastatin 20mg tablet PO SCH (07:54)
[2017-10-05] MEDS: nitroGLYCERIN 0.2mg/hour patch TD SCH (07:54)
[2017-10-05 11:00] VITALS: BP 111/51
[2017-10-05 15:00] VITALS: BP 108/52
[2017-10-05 19:00] VITALS: BP 110/47
[2017-10-05 20:24] LABS: BASOPHILS % (AUTO) 0.7 % (0-1); EOSINOPHILS # (AUTO) 0.6 X10'3 (0-0.9); EOSINOPHILS % (AUTO) 10.1 % (0-6); HEMATOCRIT 39.1 % (42.0-52.0); HEMOGLOBIN 13.4 g/dl (14.0-17.9); LYMPHOCYTES # (AUTO) 0.9 X10'3 (1.1-4.8); MEAN CORPUSCULAR HEMOGLOBIN 29.8 PG (27.0-31.0); MEAN CORPUSCULAR HGB CONC 34.3 % (33.0-36.5); MEAN CORPUSCULAR VOLUME 86.8 FL (78-98); MEAN PLATELET VOLUME 8.1 FL (7.4-10.4); MONOCYTES # (AUTO) 0.7 X10'3 (0-0.9); MONOCYTES % (AUTO) 11.9 % (2-12); NEUTROPHILS # (AUTO) 3.9 X10'3 (1.8-7.7); NEUTROPHILS % (AUTO) 63.3 % (42-75); PLATELET COUNT 229 X10'3 (140-440); RED CELL DISTRIBUTION WIDTH 13.6 % (11.5-14.5); WHITE BLOOD COUNT 6.2 X10'3 (4.5-11.0)
[2017-10-05 20:41] LABS: ALANINE AMINOTRANSFERASE 52 U/L (12-78); ALBUMIN 2.8 G/DL (3.4-5.0); ALBUMIN/GLOBULIN RATIO 0.6 (1.1-1.5); ALKALINE PHOSPHATASE 140 IU/L (46-116); ANION GAP 5 (8-16); ASPARTATE AMINO TRANSFERASE 23 U/L (10-37); BILIRUBIN,TOTAL 0.3 MG/DL (0.1-1.0); BLOOD UREA NITROGEN 67 MG/DL (7-18); BUN/CREATININE RATIO 32.7 (5.4-32.0); CALCIUM 8.2 MG/DL (8.5-10.1); CHLORIDE 101 MMOL/L (99-107); CREATININE 2.05 MG/DL (0.60-1.10); GLUCOSE 184 MG/DL (70-104); POTASSIUM 4.3 MMOL/L (3.5-5.1); SODIUM 136 MMOL/L (135-145); TOTAL CARBON DIOXIDE 29.7 MMOL/L (24-32); TOTAL PROTEIN 7.5 G/DL (6.4-8.2); eGFR 31 ML/MIN
[2017-10-05 23:00] VITALS: BP 108/55
[2017-10-06 03:00] VITALS: BP 123/60
[2017-10-06 06:00] VITALS: BP 115/55
[2017-10-06] MEDS: nitroGLYCERIN 0.2mg/hour patch TD SCH (08:00)
[2017-10-06] MEDS: furosemide 20 MG/2 ML vial IV SCH (08:38)
[2017-10-06] MEDS: aspirin 81mg tablet.DR PO SCH (08:38)
[2017-10-06] MEDS: metoprolol tartrate 50mg tablet PO SCH ×2 (08:38→19:22)
[2017-10-06] MEDS: atorvastatin 20mg tablet PO SCH (08:39)
[2017-10-06] MEDS: lisinopril 5mg tablet PO SCH ×2 (08:39→19:22)
[2017-10-06] MEDS: enoxaparin 60mg/0.6ml syringe SUBCUT SCH (08:40)
[2017-10-06 11:00] VITALS: BP 116/55
[2017-10-06 15:00] VITALS: BP 119/54
[2017-10-06 18:00] VITALS: BP 132/62
[2017-10-06 22:00] VITALS: BP 105/52
[2017-10-07] VITALS (7 sets, daily range): BP systolic 95–123; BP diastolic 47–58
[2017-10-07] MEDS: nitroGLYCERIN 0.2mg/hour patch TD SCH (08:00)
[2017-10-07] MEDS: lisinopril 5mg tablet PO SCH ×2 (08:43→19:46)
[2017-10-07] MEDS: enoxaparin 60mg/0.6ml syringe SUBCUT SCH (08:43)
[2017-10-07] MEDS: furosemide 20 MG/2 ML vial IV SCH (08:43)
[2017-10-07] MEDS: aspirin 81mg tablet.DR PO SCH (08:44)
[2017-10-07] MEDS: atorvastatin 20mg tablet PO SCH (08:44)
[2017-10-07] MEDS: metoprolol tartrate 50mg tablet PO SCH ×2 (08:44→19:46)
[2017-10-08 03:00] VITALS: BP 103/51
[2017-10-08 06:00] VITALS: BP 113/53
[2017-10-08] MEDS: nitroGLYCERIN 0.2mg/hour patch TD SCH (08:00)
[2017-10-08] MEDS: metoprolol tartrate 50mg tablet PO SCH ×2 (09:28→19:19)
[2017-10-08] MEDS: lisinopril 5mg tablet PO SCH ×2 (09:28→19:19)
[2017-10-08] MEDS: furosemide 20 MG/2 ML vial IV SCH (09:28)
[2017-10-08] MEDS: aspirin 81mg tablet.DR PO SCH (09:28)
[2017-10-08] MEDS: enoxaparin 60mg/0.6ml syringe SUBCUT SCH (09:29)
[2017-10-08] MEDS: atorvastatin 20mg tablet PO SCH (09:29)
[2017-10-08 11:00] VITALS: BP 118/55
[2017-10-08 15:00] VITALS: BP 106/49
[2017-10-08 19:00] VITALS: BP 104/47
[2017-10-08 23:00] VITALS: BP 116/50
[2017-10-09 03:00] VITALS: BP 112/51
[2017-10-09 05:13] LABS: BASOPHILS # (AUTO) 0.1 X10'3 (0-0.2); BASOPHILS % (AUTO) 0.8 % (0-1); EOSINOPHILS # (AUTO) 0.9 X10'3 (0-0.9); EOSINOPHILS % (AUTO) 11.5 % (0-6); HEMATOCRIT 41.8 % (42.0-52.0); LYMPHOCYTES % (AUTO) 12.7 % (21-51); MEAN CORPUSCULAR HEMOGLOBIN 29.3 PG (27.0-31.0); MEAN CORPUSCULAR HGB CONC 33.6 % (33.0-36.5); MEAN CORPUSCULAR VOLUME 87.3 FL (78-98); MEAN PLATELET VOLUME 8.9 FL (7.4-10.4); MONOCYTES # (AUTO) 0.8 X10'3 (0-0.9); MONOCYTES % (AUTO) 9.8 % (2-12); NEUTROPHILS % (AUTO) 65.2 % (42-75); PLATELET COUNT 230 X10'3 (140-440); RED BLOOD COUNT 4.79 X10'6 (4.70-6.10); RED CELL DISTRIBUTION WIDTH 13.6 % (11.5-14.5); WHITE BLOOD COUNT 7.7 X10'3 (4.5-11.0)
[2017-10-09 05:37] LABS: ALANINE AMINOTRANSFERASE 50 U/L (12-78); ALBUMIN 2.9 G/DL (3.4-5.0); ALBUMIN/GLOBULIN RATIO 0.6 (1.1-1.5); ALKALINE PHOSPHATASE 126 IU/L (46-116); ANION GAP 4 (8-16); ASPARTATE AMINO TRANSFERASE 24 U/L (10-37); BILIRUBIN,TOTAL 0.3 MG/DL (0.1-1.0); BLOOD UREA NITROGEN 75 MG/DL (7-18); BUN/CREATININE RATIO 33.9 (5.4-32.0); CALCIUM 8.6 MG/DL (8.5-10.1); CHLORIDE 102 MMOL/L (99-107); CREATININE 2.21 MG/DL (0.60-1.10); GLUCOSE 119 MG/DL (70-104); MAGNESIUM 2.4 MG/DL (1.5-2.4); PHOSPHORUS 3.9 MG/DL (2.3-4.5); POTASSIUM 5.1 MMOL/L (3.5-5.1); SODIUM 136 MMOL/L (135-145); TOTAL CARBON DIOXIDE 29.7 MMOL/L (24-32); TOTAL PROTEIN 7.8 G/DL (6.4-8.2); eGFR 29 ML/MIN
[2017-10-09 06:00] VITALS: BP 112/53
[2017-10-09] MEDS: nitroGLYCERIN 0.2mg/hour patch TD SCH (08:00)
[2017-10-09] MEDS: lisinopril 5mg tablet PO SCH ×2 (08:30→19:31)
[2017-10-09] MEDS: furosemide 20 MG/2 ML vial IV SCH (08:30)
[2017-10-09] MEDS: aspirin 81mg tablet.DR PO SCH (08:30)
[2017-10-09] MEDS: atorvastatin 20mg tablet PO SCH (08:30)
[2017-10-09] MEDS: metoprolol tartrate 50mg tablet PO SCH ×2 (08:30→19:31)
[2017-10-09] MEDS: enoxaparin 60mg/0.6ml syringe SUBCUT SCH (08:31)
[2017-10-09 11:00] VITALS: BP 108/48
[2017-10-09 15:00] VITALS: BP 114/37
[2017-10-09 19:00] VITALS: BP 123/54
[2017-10-09 23:00] VITALS: BP 126/54
[2017-10-10 03:00] VITALS: BP 116/52
[2017-10-10 05:29] LABS: HEMATOCRIT 40.6 % (42.0-52.0); MEAN CORPUSCULAR HEMOGLOBIN 29.6 PG (27.0-31.0); MEAN CORPUSCULAR HGB CONC 34.5 % (33.0-36.5); MEAN CORPUSCULAR VOLUME 85.9 FL (78-98); MEAN PLATELET VOLUME 8.5 FL (7.4-10.4); PLATELET COUNT 218 X10'3 (140-440); RED BLOOD COUNT 4.73 X10'6 (4.70-6.10); RED CELL DISTRIBUTION WIDTH 13.5 % (11.5-14.5); WHITE BLOOD COUNT 9.1 X10'3 (4.5-11.0)
[2017-10-10 05:51] LABS: ALANINE AMINOTRANSFERASE 56 U/L (12-78); ALBUMIN 2.9 G/DL (3.4-5.0); ALBUMIN/GLOBULIN RATIO 0.6 (1.1-1.5); ALKALINE PHOSPHATASE 125 IU/L (46-116); ANION GAP 8 (8-16); ASPARTATE AMINO TRANSFERASE 25 U/L (10-37); BILIRUBIN,TOTAL 0.3 MG/DL (0.1-1.0); BLOOD UREA NITROGEN 75 MG/DL (7-18); CALCIUM 8.4 MG/DL (8.5-10.1); CHLORIDE 103 MMOL/L (99-107); CREATININE 2.42 MG/DL (0.60-1.10); GLUCOSE 163 MG/DL (70-104); MAGNESIUM 2.5 MG/DL (1.5-2.4); PHOSPHORUS 3.1 MG/DL (2.3-4.5); POTASSIUM 4.6 MMOL/L (3.5-5.1); SODIUM 138 MMOL/L (135-145); TOTAL CARBON DIOXIDE 27.1 MMOL/L (24-32); TOTAL PROTEIN 7.9 G/DL (6.4-8.2); eGFR 26 ML/MIN
[2017-10-10 06:00] VITALS: BP 118/59
[2017-10-10 07:28] LABS: PLATELET ESTIMATE NORMAL; TOTAL CELLS COUNTED 100
[2017-10-10] MEDS: nitroGLYCERIN 0.2mg/hour patch TD SCH (08:00)
[2017-10-10] MEDS: atorvastatin 20mg tablet PO SCH (08:45)
[2017-10-10] MEDS: metoprolol tartrate 50mg tablet PO SCH ×2 (08:45→19:24)
[2017-10-10] MEDS: lisinopril 5mg tablet PO SCH ×2 (08:45→19:24)
[2017-10-10] MEDS: enoxaparin 60mg/0.6ml syringe SUBCUT SCH (08:45)
[2017-10-10] MEDS: aspirin 81mg tablet.DR PO SCH (08:45)
[2017-10-10] MEDS: furosemide 20 MG/2 ML vial IV SCH (08:45)
[2017-10-10] MEDS: normal saline 1000ml 1,000 ML IV SCH (10:45)
[2017-10-10 11:00] VITALS: BP 112/51
[2017-10-10 15:00] VITALS: BP 110/50
[2017-10-10 19:00] VITALS: BP 112/49
[2017-10-10 23:00] VITALS: BP 106/51
[2017-10-11 03:00] VITALS: BP 103/53
[2017-10-11 05:32] LABS: BASOPHILS # (AUTO) 0.1 X10'3 (0-0.2); BASOPHILS % (AUTO) 0.7 % (0-1); EOSINOPHILS # (AUTO) 0.7 X10'3 (0-0.9); EOSINOPHILS % (AUTO) 8.5 % (0-6); HEMATOCRIT 38.5 % (42.0-52.0); HEMOGLOBIN 13.3 g/dl (14.0-17.9); LYMPHOCYTES # (AUTO) 1.1 X10'3 (1.1-4.8); LYMPHOCYTES % (AUTO) 13.9 % (21-51); MEAN CORPUSCULAR HEMOGLOBIN 29.7 PG (27.0-31.0); MEAN CORPUSCULAR HGB CONC 34.5 % (33.0-36.5); MEAN CORPUSCULAR VOLUME 86.1 FL (78-98); MEAN PLATELET VOLUME 8.7 FL (7.4-10.4); MONOCYTES # (AUTO) 0.8 X10'3 (0-0.9); MONOCYTES % (AUTO) 10.8 % (2-12); NEUTROPHILS # (AUTO) 5.1 X10'3 (1.8-7.7); NEUTROPHILS % (AUTO) 66.1 % (42-75); PLATELET COUNT 182 X10'3 (140-440); RED BLOOD COUNT 4.47 X10'6 (4.70-6.10); RED CELL DISTRIBUTION WIDTH 13.3 % (11.5-14.5); WHITE BLOOD COUNT 7.7 X10'3 (4.5-11.0)
[2017-10-11 05:41] LABS: ALANINE AMINOTRANSFERASE 50 U/L (12-78); ALBUMIN 2.7 G/DL (3.4-5.0); ALBUMIN/GLOBULIN RATIO 0.6 (1.1-1.5); ALKALINE PHOSPHATASE 113 IU/L (46-116); ANION GAP 6 (8-16); ASPARTATE AMINO TRANSFERASE 25 U/L (10-37); BILIRUBIN,TOTAL 0.5 MG/DL (0.1-1.0); BLOOD UREA NITROGEN 66 MG/DL (7-18); BUN/CREATININE RATIO 25.6 (5.4-32.0); CALCIUM 8.1 MG/DL (8.5-10.1); CHLORIDE 103 MMOL/L (99-107); CREATININE 2.58 MG/DL (0.60-1.10); GLUCOSE 117 MG/DL (70-104); MAGNESIUM 2.2 MG/DL (1.5-2.4); PHOSPHORUS 2.6 MG/DL (2.3-4.5); POTASSIUM 4.9 MMOL/L (3.5-5.1); SODIUM 136 MMOL/L (135-145); TOTAL CARBON DIOXIDE 26.9 MMOL/L (24-32); TOTAL PROTEIN 7.3 G/DL (6.4-8.2); eGFR 24 ML/MIN
[2017-10-11] MEDS: normal saline 1000ml 1,000 ML IV SCH (05:50)
[2017-10-11 06:00] VITALS: BP 129/54
[2017-10-11] MEDS: nitroGLYCERIN 0.2mg/hour patch TD SCH (08:00)
[2017-10-11] MEDS: metoprolol tartrate 50mg tablet PO SCH ×2 (08:11→19:07)
[2017-10-11] MEDS: aspirin 81mg tablet.DR PO SCH (08:11)
[2017-10-11] MEDS: atorvastatin 20mg tablet PO SCH (08:11)
[2017-10-11] MEDS: lisinopril 5mg tablet PO SCH ×2 (08:11→19:07)
[2017-10-11] MEDS: furosemide 20 MG/2 ML vial IV SCH (08:12)
[2017-10-11] MEDS: enoxaparin 60mg/0.6ml syringe SUBCUT SCH (08:12)
[2017-10-11 11:00] VITALS: BP 123/55
[2017-10-11 15:00] VITALS: BP 131/62
[2017-10-11 19:00] VITALS: BP 134/52
[2017-10-11 23:00] VITALS: BP 121/57
[2017-10-12] MEDS: normal saline 1000ml 1,000 ML IV SCH (01:36)
[2017-10-12 03:00] VITALS: BP 132/55
[2017-10-12 05:01] LABS: BASOPHILS % (AUTO) 0.4 % (0-1); EOSINOPHILS % (AUTO) 9.6 % (0-6); HEMATOCRIT 38.7 % (42.0-52.0); HEMOGLOBIN 13.3 g/dl (14.0-17.9); LYMPHOCYTES # (AUTO) 1.1 X10'3 (1.1-4.8); LYMPHOCYTES % (AUTO) 10.9 % (21-51); MEAN CORPUSCULAR HEMOGLOBIN 29.5 PG (27.0-31.0); MEAN CORPUSCULAR HGB CONC 34.3 % (33.0-36.5); MEAN CORPUSCULAR VOLUME 85.8 FL (78-98); MEAN PLATELET VOLUME 8.4 FL (7.4-10.4); MONOCYTES # (AUTO) 1.1 X10'3 (0-0.9); MONOCYTES % (AUTO) 10.6 % (2-12); NEUTROPHILS # (AUTO) 6.8 X10'3 (1.8-7.7); NEUTROPHILS % (AUTO) 68.5 % (42-75); PLATELET COUNT 175 X10'3 (140-440); RED BLOOD COUNT 4.51 X10'6 (4.70-6.10); RED CELL DISTRIBUTION WIDTH 13.5 % (11.5-14.5)
[2017-10-12 05:29] LABS: ALANINE AMINOTRANSFERASE 54 U/L (12-78); ALBUMIN 2.5 G/DL (3.4-5.0); ALBUMIN/GLOBULIN RATIO 0.5 (1.1-1.5); ALKALINE PHOSPHATASE 135 IU/L (46-116); ANION GAP 6 (8-16); ASPARTATE AMINO TRANSFERASE 28 U/L (10-37); BILIRUBIN,TOTAL 0.3 MG/DL (0.1-1.0); BLOOD UREA NITROGEN 58 MG/DL (7-18); BUN/CREATININE RATIO 26.2 (5.4-32.0); CALCIUM 7.9 MG/DL (8.5-10.1); CHLORIDE 106 MMOL/L (99-107); CREATININE 2.21 MG/DL (0.60-1.10); GLUCOSE 130 MG/DL (70-104); PHOSPHORUS 2.7 MG/DL (2.3-4.5); SODIUM 138 MMOL/L (135-145); TOTAL CARBON DIOXIDE 26.2 MMOL/L (24-32); TOTAL PROTEIN 7.1 G/DL (6.4-8.2); eGFR 29 ML/MIN
[2017-10-12 06:00] VITALS: BP 136/63
[2017-10-12] MEDS: nitroGLYCERIN 0.2mg/hour patch TD SCH (07:35)
[2017-10-12] MEDS: metoprolol tartrate 50mg tablet PO SCH ×2 (07:36→19:28)
[2017-10-12] MEDS: atorvastatin 20mg tablet PO SCH (07:36)
[2017-10-12] MEDS: furosemide 20 MG/2 ML vial IV SCH (07:36)
[2017-10-12] MEDS: lisinopril 5mg tablet PO SCH ×2 (07:36→19:28)
[2017-10-12] MEDS: aspirin 81mg tablet.DR PO SCH (07:36)
[2017-10-12] MEDS: enoxaparin 60mg/0.6ml syringe SUBCUT SCH (07:37)
[2017-10-12 11:00] VITALS: BP 130/57
[2017-10-12 15:00] VITALS: BP 117/48
[2017-10-12 19:00] VITALS: BP 137/48
[2017-10-12 23:00] VITALS: BP 118/53
[2017-10-13] MEDS: normal saline 1000ml 1,000 ML IV SCH ×2 (00:10→17:30)
[2017-10-13 03:00] VITALS: BP 112/42
[2017-10-13 05:38] LABS: BASOPHILS % (AUTO) 0.4 % (0-1); EOSINOPHILS # (AUTO) 1.1 X10'3 (0-0.9); HEMATOCRIT 38.3 % (42.0-52.0); HEMOGLOBIN 13.1 g/dl (14.0-17.9); LYMPHOCYTES # (AUTO) 0.8 X10'3 (1.1-4.8); LYMPHOCYTES % (AUTO) 8.6 % (21-51); MEAN CORPUSCULAR HEMOGLOBIN 29.8 PG (27.0-31.0); MEAN CORPUSCULAR HGB CONC 34.3 % (33.0-36.5); MEAN CORPUSCULAR VOLUME 86.8 FL (78-98); MEAN PLATELET VOLUME 8.9 FL (7.4-10.4); MONOCYTES # (AUTO) 0.8 X10'3 (0-0.9); PLATELET COUNT 175 X10'3 (140-440); RED BLOOD COUNT 4.41 X10'6 (4.70-6.10); RED CELL DISTRIBUTION WIDTH 13.6 % (11.5-14.5); WHITE BLOOD COUNT 9.8 X10'3 (4.5-11.0)
[2017-10-13 05:56] LABS: ALANINE AMINOTRANSFERASE 45 U/L (12-78); ALBUMIN 2.5 G/DL (3.4-5.0); ALBUMIN/GLOBULIN RATIO 0.6 (1.1-1.5); ALKALINE PHOSPHATASE 123 IU/L (46-116); ANION GAP 7 (8-16); ASPARTATE AMINO TRANSFERASE 21 U/L (10-37); BILIRUBIN,TOTAL 0.3 MG/DL (0.1-1.0); BLOOD UREA NITROGEN 51 MG/DL (7-18); BUN/CREATININE RATIO 24.8 (5.4-32.0); CALCIUM 8.1 MG/DL (8.5-10.1); CHLORIDE 106 MMOL/L (99-107); CREATININE 2.06 MG/DL (0.60-1.10); GLUCOSE 125 MG/DL (70-104); PHOSPHORUS 2.9 MG/DL (2.3-4.5); SODIUM 138 MMOL/L (135-145); TOTAL CARBON DIOXIDE 24.7 MMOL/L (24-32); TOTAL PROTEIN 6.9 G/DL (6.4-8.2); eGFR 31 ML/MIN
[2017-10-13 05:57] LABS: POTASSIUM 5.2 MMOL/L (3.5-5.1)
[2017-10-13 06:00] VITALS: BP 116/45
[2017-10-13] MEDS: nitroGLYCERIN 0.2mg/hour patch TD SCH (08:00)
[2017-10-13] MEDS: furosemide 20 MG/2 ML vial IV SCH (08:30)
[2017-10-13] MEDS: aspirin 81mg tablet.DR PO SCH (08:30)
[2017-10-13] MEDS: metoprolol tartrate 50mg tablet PO SCH ×2 (08:30→21:48)
[2017-10-13] MEDS: lisinopril 5mg tablet PO SCH (08:30)
[2017-10-13] MEDS: atorvastatin 20mg tablet PO SCH (08:30)
[2017-10-13] MEDS: enoxaparin 60mg/0.6ml syringe SUBCUT SCH (08:31)
[2017-10-13 11:00] VITALS: BP 106/45
[2017-10-13 15:00] VITALS: BP 103/45
[2017-10-13 19:00] VITALS: BP 114/42
[2017-10-13 23:00] VITALS: BP 118/41
[2017-10-14 03:00] VITALS: BP 114/46
[2017-10-14 06:00] VITALS: BP 123/53
[2017-10-14] MEDS: lisinopril 5mg tablet PO SCH (07:09)
[2017-10-14] MEDS: aspirin 81mg tablet.DR PO SCH (07:09)
[2017-10-14] MEDS: metoprolol tartrate 50mg tablet PO SCH ×2 (07:09→20:00)
[2017-10-14] MEDS: enoxaparin 60mg/0.6ml syringe SUBCUT SCH (07:10)
[2017-10-14] MEDS: atorvastatin 20mg tablet PO SCH (07:10)
[2017-10-14 07:39] LABS: BASOPHILS % (AUTO) 0.6 % (0-1); EOSINOPHILS % (AUTO) 11.7 % (0-6); HEMATOCRIT 38.6 % (42.0-52.0); LYMPHOCYTES % (AUTO) 12.2 % (21-51); MEAN CORPUSCULAR HEMOGLOBIN 29.3 PG (27.0-31.0); MEAN CORPUSCULAR HGB CONC 33.7 % (33.0-36.5); MEAN PLATELET VOLUME 8.8 FL (7.4-10.4); MONOCYTES # (AUTO) 0.8 X10'3 (0-0.9); MONOCYTES % (AUTO) 9.4 % (2-12); NEUTROPHILS # (AUTO) 5.3 X10'3 (1.8-7.7); NEUTROPHILS % (AUTO) 66.1 % (42-75); PLATELET COUNT 179 X10'3 (140-440); RED BLOOD COUNT 4.44 X10'6 (4.70-6.10); RED CELL DISTRIBUTION WIDTH 12.7 % (11.5-14.5); WHITE BLOOD COUNT 8.1 X10'3 (4.5-11.0)
[2017-10-14 07:46] LABS: ALBUMIN 2.4 G/DL (3.4-5.0); ANION GAP 7 (8-16); BLOOD UREA NITROGEN 50 MG/DL (7-18); CHLORIDE 106 MMOL/L (99-107); CREATININE 2.27 MG/DL (0.60-1.10); GLUCOSE 100 MG/DL (70-104); POTASSIUM 4.9 MMOL/L (3.5-5.1); SODIUM 139 MMOL/L (135-145); TOTAL CARBON DIOXIDE 25.6 MMOL/L (24-32); eGFR 28 ML/MIN
[2017-10-14] MEDS: nitroGLYCERIN 0.2mg/hour patch TD SCH (07:54)
[2017-10-14] MEDS ORDERED: hydrocortisone 2.5% cream 28.4gm TP PRN (09:55)
[2017-10-14 11:00] VITALS: BP 115/45
[2017-10-14] MEDS: normal saline 1000ml 1,000 ML IV SCH (13:30)
[2017-10-14 15:00] VITALS: BP 114/48
[2017-10-14 19:00] VITALS: BP 135/66
[2017-10-14 23:00] VITALS: BP 131/61
[2017-10-15 03:00] VITALS: BP 111/49
[2017-10-15 06:00] VITALS: BP 113/51
[2017-10-15] MEDS: nitroGLYCERIN 0.2mg/hour patch TD SCH (06:39)
[2017-10-15 07:20] LABS: BASOPHILS % (AUTO) 0.7 % (0-1); EOSINOPHILS % (AUTO) 14.4 % (0-6); HEMATOCRIT 32.6 % (42.0-52.0); HEMOGLOBIN 11.6 g/dl (14.0-17.9); LYMPHOCYTES # (AUTO) 0.9 X10'3 (1.1-4.8); LYMPHOCYTES % (AUTO) 12.7 % (21-51); MEAN CORPUSCULAR HEMOGLOBIN 30.7 PG (27.0-31.0); MEAN CORPUSCULAR HGB CONC 35.5 % (33.0-36.5); MEAN CORPUSCULAR VOLUME 86.4 FL (78-98); MEAN PLATELET VOLUME 7.8 FL (7.4-10.4); MONOCYTES # (AUTO) 0.8 X10'3 (0-0.9); MONOCYTES % (AUTO) 11.5 % (2-12); NEUTROPHILS # (AUTO) 4.3 X10'3 (1.8-7.7); NEUTROPHILS % (AUTO) 60.7 % (42-75); PLATELET COUNT 156 X10'3 (140-440); RED BLOOD COUNT 3.78 X10'6 (4.70-6.10); RED CELL DISTRIBUTION WIDTH 12.3 % (11.5-14.5)
[2017-10-15 07:28] LABS: ALBUMIN 2.2 G/DL (3.4-5.0); ANION GAP 7 (8-16); BLOOD UREA NITROGEN 39 MG/DL (7-18); BUN/CREATININE RATIO 18.6 (5.4-32.0); CALCIUM 7.7 MG/DL (8.5-10.1); CHLORIDE 109 MMOL/L (99-107); GLUCOSE 94 MG/DL (70-104); POTASSIUM 4.6 MMOL/L (3.5-5.1); SODIUM 140 MMOL/L (135-145); TOTAL CARBON DIOXIDE 24.1 MMOL/L (24-32); eGFR 31 ML/MIN
[2017-10-15] MEDS: lisinopril 5mg tablet PO SCH (08:54)
[2017-10-15] MEDS: aspirin 81mg tablet.DR PO SCH (08:54)
[2017-10-15] MEDS: atorvastatin 20mg tablet PO SCH (08:55)
[2017-10-15] MEDS: metoprolol tartrate 50mg tablet PO SCH ×2 (08:55→20:42)
[2017-10-15] MEDS: enoxaparin 60mg/0.6ml syringe SUBCUT SCH (08:55)
[2017-10-15] MEDS ORDERED: [UNRECOGNIZED DRUG - CODE] TP (10:33)
[2017-10-15 11:00] VITALS: BP 125/52
[2017-10-15] MEDS: normal saline 1000ml 1,000 ML IV SCH ×2 (11:16→17:42)
[2017-10-15] MEDS: COAL TAR TOP PRN ×2 (11:16→20:44)
[2017-10-15 15:00] VITALS: BP 123/47
[2017-10-15 18:00] VITALS: BP 150/57
[2017-10-15 22:00] VITALS: BP 135/56
[2017-10-16 02:00] VITALS: BP 145/65
[2017-10-16 06:00] VITALS: BP 139/61
[2017-10-16] MEDS: nitroGLYCERIN 0.2mg/hour patch TD SCH (08:00)
[2017-10-16] MEDS: aspirin 81mg tablet.DR PO SCH (08:49)
[2017-10-16] MEDS: atorvastatin 20mg tablet PO SCH (08:49)
[2017-10-16] MEDS: enoxaparin 60mg/0.6ml syringe SUBCUT SCH (08:49)
[2017-10-16] MEDS: lisinopril 5mg tablet PO SCH (08:49)
[2017-10-16] MEDS: metoprolol tartrate 50mg tablet PO SCH ×2 (08:49→19:54)
[2017-10-16 11:00] VITALS: BP 107/59
[2017-10-16 15:00] VITALS: BP 136/57
[2017-10-16 18:00] VITALS: BP 142/43
[2017-10-16 22:00] VITALS: BP 141/62
[2017-10-17] MEDS: normal saline 1000ml 1,000 ML IV SCH ×2 (01:30→13:24)
[2017-10-17 02:00] VITALS: BP 139/53
[2017-10-17 07:01] VITALS: BP 141/55
[2017-10-17] MEDS: atorvastatin 20mg tablet PO SCH (08:07)
[2017-10-17] MEDS: lisinopril 5mg tablet PO SCH (08:07)
[2017-10-17] MEDS: metoprolol tartrate 50mg tablet PO SCH ×2 (08:07→19:58)
[2017-10-17] MEDS: aspirin 81mg tablet.DR PO SCH (08:07)
[2017-10-17] MEDS: enoxaparin 60mg/0.6ml syringe SUBCUT SCH (08:08)
[2017-10-17] MEDS: nitroGLYCERIN 0.2mg/hour patch TD SCH (08:12)
[2017-10-17 11:00] VITALS: BP 124/54
[2017-10-17 15:00] VITALS: BP 127/50
[2017-10-17 18:00] VITALS: BP 135/66
[2017-10-17 22:00] VITALS: BP 145/71
[2017-10-18] VITALS (8 sets, daily range): BP systolic 114–177; BP diastolic 46–87
[2017-10-18] MEDS: atorvastatin 20mg tablet PO SCH (07:17)
[2017-10-18] MEDS: lisinopril 5mg tablet PO SCH (07:17)
[2017-10-18] MEDS: metoprolol tartrate 50mg tablet PO SCH ×2 (07:17→19:43)
[2017-10-18] MEDS: aspirin 81mg tablet.DR PO SCH (07:18)
[2017-10-18] MEDS: nitroGLYCERIN 0.2mg/hour patch TD SCH (07:18)
[2017-10-18] MEDS: enoxaparin 60mg/0.6ml syringe SUBCUT SCH (07:18)
[2017-10-18] MEDS: normal saline 1000ml 1,000 ML IV SCH (09:24)
[2017-10-18] MEDS: nitroGLYCERIN 0.4mg SUBLingual tab SL PRN ×2 (21:24→23:03)
[2017-10-18] MEDS ORDERED: morphine 2 MG/ML inj. syringe IV PRN (21:25)
[2017-10-19 02:00] VITALS: BP 143/62
[2017-10-19 07:00] VITALS: BP 140/63
[2017-10-19] MEDS: metoprolol tartrate 50mg tablet PO SCH ×2 (08:50→20:48)
[2017-10-19] MEDS: lisinopril 5mg tablet PO SCH (08:50)
[2017-10-19] MEDS: aspirin 81mg tablet.DR PO SCH (08:50)
[2017-10-19] MEDS: atorvastatin 20mg tablet PO SCH (08:51)
[2017-10-19] MEDS: nitroGLYCERIN 0.2mg/hour patch TD SCH (08:53)
[2017-10-19] MEDS: enoxaparin 60mg/0.6ml syringe SUBCUT SCH (08:54)
[2017-10-19 11:00] VITALS: BP 124/55
[2017-10-19 19:00] VITALS: BP 138/69
[2017-10-19 23:00] VITALS: BP 145/65
[2017-10-20] MEDS: heparin, porcine 5000 units/ml vial SQ SCH ×3 (00:28→15:51)
[2017-10-20 03:00] VITALS: BP 153/70
[2017-10-20 06:00] VITALS: BP 149/67
[2017-10-20] MEDS: nitroGLYCERIN 0.2mg/hour patch TD SCH (08:00)
[2017-10-20] MEDS: atorvastatin 20mg tablet PO SCH (08:45)
[2017-10-20] MEDS: aspirin 81mg tablet.DR PO SCH (08:45)
[2017-10-20] MEDS: lisinopril 5mg tablet PO SCH (08:46)
[2017-10-20] MEDS: metoprolol tartrate 50mg tablet PO SCH ×2 (08:46→20:18)
[2017-10-20] MEDS: spironolactone 25 MG tablet PO SCH (08:47)
[2017-10-20 08:50] LABS: BASOPHILS % (AUTO) 0.9 % (0-1); EOSINOPHILS # (AUTO) 0.8 X10'3 (0-0.9); EOSINOPHILS % (AUTO) 16.5 % (0-6); HEMATOCRIT 30.4 % (42.0-52.0); HEMOGLOBIN 10.4 g/dl (14.0-17.9); LYMPHOCYTES # (AUTO) 0.7 X10'3 (1.1-4.8); LYMPHOCYTES % (AUTO) 13.7 % (21-51); MEAN CORPUSCULAR HEMOGLOBIN 29.5 PG (27.0-31.0); MEAN CORPUSCULAR HGB CONC 34.1 % (33.0-36.5); MEAN CORPUSCULAR VOLUME 86.6 FL (78-98); MEAN PLATELET VOLUME 6.9 FL (7.4-10.4); MONOCYTES # (AUTO) 0.5 X10'3 (0-0.9); MONOCYTES % (AUTO) 9.1 % (2-12); NEUTROPHILS % (AUTO) 59.8 % (42-75); PLATELET COUNT 184 X10'3 (140-440); RED BLOOD COUNT 3.51 X10'6 (4.70-6.10); RED CELL DISTRIBUTION WIDTH 13.3 % (11.5-14.5); WHITE BLOOD COUNT 5.1 X10'3 (4.5-11.0)
[2017-10-20 09:02] LABS: PARTIAL THROMBOPLASTIN TIME 30 SECONDS (22-32); PROTHROMBIN TIME 10.7 SECONDS (9.0-12.0)
[2017-10-20 09:12] LABS: ALANINE AMINOTRANSFERASE 27 U/L (12-78); ALBUMIN 2.1 G/DL (3.4-5.0); ALBUMIN/GLOBULIN RATIO 0.5 (1.1-1.5); ALKALINE PHOSPHATASE 103 IU/L (46-116); ANION GAP 8 (8-16); ASPARTATE AMINO TRANSFERASE 18 U/L (10-37); BILIRUBIN,TOTAL 0.3 MG/DL (0.1-1.0); BLOOD UREA NITROGEN 22 MG/DL (7-18); BUN/CREATININE RATIO 12.7 (5.4-32.0); CALCIUM 7.7 MG/DL (8.5-10.1); CHLORIDE 106 MMOL/L (99-107); CREATININE 1.73 MG/DL (0.60-1.10); GLUCOSE 174 MG/DL (70-104); POTASSIUM 3.9 MMOL/L (3.5-5.1); SODIUM 138 MMOL/L (135-145); TOTAL CARBON DIOXIDE 24.1 MMOL/L (24-32); TOTAL PROTEIN 6.1 G/DL (6.4-8.2); eGFR 38 ML/MIN
[2017-10-20 11:00] VITALS: BP 138/60
[2017-10-20 15:00] VITALS: BP 144/66
[2017-10-20 18:00] VITALS: BP 141/57
[2017-10-20 22:00] VITALS: BP 136/61
[2017-10-21] MEDS: heparin, porcine 5000 units/ml vial SQ SCH ×4 (00:35→23:25)
[2017-10-21 02:00] VITALS: BP 141/70
[2017-10-21 06:00] VITALS: BP 154/64
[2017-10-21] MEDS: metoprolol tartrate 50mg tablet PO SCH ×2 (07:46→19:52)
[2017-10-21] MEDS: lisinopril 5mg tablet PO SCH (07:47)
[2017-10-21] MEDS: aspirin 81mg tablet.DR PO SCH (07:47)
[2017-10-21] MEDS: spironolactone 25 MG tablet PO SCH (07:48)
[2017-10-21] MEDS: atorvastatin 20mg tablet PO SCH (07:48)
[2017-10-21] MEDS: nitroGLYCERIN 0.2mg/hour patch TD SCH (07:49)
[2017-10-21 11:00] VITALS: BP 134/68
[2017-10-21 15:00] VITALS: BP 130/47
[2017-10-21 18:00] VITALS: BP 158/61
== END 2017-10-22 00:30 | disposition short-term general hospital (02) | DRG 190 ==
LOC: ER 21:10 → ED HOLD 22:54 → EDBEDREQ 23:39 → PCU 3S 23:53
PROVIDERS: ADMIT Internal Medicine; ATTEND Family Medicine
PROC: 4A023N7 Measurement of Cardiac Sampling and Pressure, Left Heart, Percutaneous Approach (ICD-10-PCS; principal; 2017-09-22)
PROC: B2111ZZ Fluoroscopy of Multiple Coronary Arteries using Low Osmolar Contrast (ICD-10-PCS; 2017-09-22)
PROC: B2151ZZ Fluoroscopy of Left Heart using Low Osmolar Contrast (ICD-10-PCS; 2017-09-22)
PROC: B4101ZZ Fluoroscopy of Abdominal Aorta using Low Osmolar Contrast (ICD-10-PCS; 2017-09-22)
PROC: B3111ZZ Fluoroscopy of Right Brachiocephalic-Subclavian Artery using Low Osmolar Contrast (ICD-10-PCS; 2017-09-22)
PROC: B3121ZZ Fluoroscopy of Left Subclavian Artery using Low Osmolar Contrast (ICD-10-PCS; 2017-09-22)
DX: I21.4 Non-ST elevation (NSTEMI) myocardial infarction (principal); I50.21 Acute systolic (congestive) heart failure; E11.22 Type 2 diabetes mellitus with diabetic chronic kidney disease; E11.65 Type 2 diabetes mellitus with hyperglycemia; I13.0 Hypertensive heart and chronic kidney disease with heart failure and stage 1 through stage 4 chronic kidney disease, or unspecified chronic kidney disease; I48.0 Paroxysmal atrial fibrillation; E87.6 Hypokalemia; E87.5 Hyperkalemia; E78.5 Hyperlipidemia, unspecified; I25.10 Atherosclerotic heart disease of native coronary artery without angina pectoris; I25.5 Ischemic cardiomyopathy; L40.9 Psoriasis, unspecified; I34.0 Nonrheumatic mitral (valve) insufficiency; N18.9 Chronic kidney disease, unspecified; Z87.891 Personal history of nicotine dependence
CPT/HCPCS: 36415; 71046; 75630; 80048; 80053; 80061; 82948; 83036; 83735; 83880; 84100; 84132; 84484; 85025; 85610; 85730; 87070; 93005; 93306; 93458; 97116; 97161; 97530; 99152; 99153; A4353; A4414; A6212; A6250; A6253; A6257; A6446; A6449; A9270; C1760; J1644; J1650; J1815; J1940; J2250; J2270; J3010; J3490; J7030; Q9967

== ENCOUNTER 2018-07-17 19:24 | Emergency (ER) | payer MEDICAID ==
[~2018-07-17] VITALS: Ht 167.6 cm; Wt 64.0 kg
[~2018-07-17 19:24] MED LIST: NO HOME MEDS; [UNRECOGNIZED DRUG - CODE] TP
[2018-07-17 20:13] LABS: BASOPHILS # (AUTO) 0.1 X10'3 (0-0.2); BASOPHILS % (AUTO) 1.3 % (0-1); EOSINOPHILS # (AUTO) 0.8 X10'3 (0-0.9); EOSINOPHILS % (AUTO) 12.6 % (0-6); HEMATOCRIT 32.9 % (42.0-52.0); LYMPHOCYTES # (AUTO) 0.6 X10'3 (1.1-4.8); MEAN CORPUSCULAR HEMOGLOBIN 29.9 PG (27.0-31.0); MEAN CORPUSCULAR HGB CONC 33.4 g/dL (33.0-36.5); MEAN CORPUSCULAR VOLUME 89.7 FL (78-98); MEAN PLATELET VOLUME 7.6 FL (7.4-10.4); MONOCYTES # (AUTO) 0.7 X10'3 (0-0.9); MONOCYTES % (AUTO) 10.6 % (2-12); NEUTROPHILS # (AUTO) 4.4 X10'3 (1.8-7.7); NEUTROPHILS % (AUTO) 66.5 % (42-75); PLATELET COUNT 222 X10'3 (140-440); RED BLOOD COUNT 3.67 X10'6 (4.70-6.10); RED CELL DISTRIBUTION WIDTH 13.4 % (11.5-14.5); WHITE BLOOD COUNT 6.6 X10'3 (4.5-11.0)
[2018-07-17 20:32] LABS: ALANINE AMINOTRANSFERASE 23 U/L (12-78); ALBUMIN 3.6 G/DL (3.4-5.0); ALBUMIN/GLOBULIN RATIO 0.8 (1.1-1.5); ALKALINE PHOSPHATASE 104 IU/L (46-116); ANION GAP 7 (8-16); ASPARTATE AMINO TRANSFERASE 14 U/L (10-37); BILIRUBIN,TOTAL 0.3 MG/DL (0.1-1.0); BLOOD UREA NITROGEN 40 MG/DL (7-18); BUN/CREATININE RATIO 14.8 (5.4-32.0); CALCIUM 8.9 MG/DL (8.5-10.1); CHLORIDE 102 MMOL/L (99-107); CREATININE 2.71 MG/DL (0.60-1.10); GLUCOSE 154 MG/DL (70-104); POTASSIUM 3.9 MMOL/L (3.5-5.1); SODIUM 137 MMOL/L (135-145); TOTAL PROTEIN 8.3 G/DL (6.4-8.2); eGFR 23 ML/MIN
[2018-07-17 20:52] VITALS: BP 167/81
[2018-07-17 21:01] LABS: OCCULT BLOOD STOOL NEGATIVE (Neg)
== END 2018-07-17 20:53 | disposition home or self-care (01) ==
LOC: ER 19:25
DX: K92.2 Gastrointestinal hemorrhage, unspecified (principal); I25.10 Atherosclerotic heart disease of native coronary artery without angina pectoris; I25.2 Old myocardial infarction; E11.22 Type 2 diabetes mellitus with diabetic chronic kidney disease; I12.9 Hypertensive chronic kidney disease with stage 1 through stage 4 chronic kidney disease, or unspecified chronic kidney disease; N18.9 Chronic kidney disease, unspecified; Z98.61 Coronary angioplasty status; Z98.890 Other specified postprocedural states
CPT/HCPCS: 36415; 80053; 82272; 85025; 85610; 99283

== ENCOUNTER 2018-08-23 23:34 | Emergency (ER) | payer MEDICAID ==
[~2018-08-23] VITALS: Ht 167.6 cm; Wt 62.7 kg
[~2018-08-23 23:34] MED LIST changes: +HYDR-4353 PO; +ONDA4TAB6 PO; +TADA20TA PO
[2018-08-24] MEDS ORDERED: ondansetron/PF 4mg/2ml inj IV ONE (00:05)
[2018-08-24] MEDS ORDERED: normal saline 1000ml 1,000 ML IV ONE (00:05)
[2018-08-24] MEDS ORDERED: morphine 4 MG/ML inj SYRINge IV PRN (00:05)
[2018-08-24 00:50] LABS: BASOPHILS # (AUTO) 0.1 X10'3 (0-0.2); BASOPHILS % (AUTO) 0.9 % (0-1); EOSINOPHILS # (AUTO) 0.9 X10'3 (0-0.9); EOSINOPHILS % (AUTO) 9.1 % (0-6); HEMATOCRIT 31.3 % (42.0-52.0); HEMOGLOBIN 10.5 g/dl (14.0-17.9); LYMPHOCYTES # (AUTO) 0.5 X10'3 (1.1-4.8); LYMPHOCYTES % (AUTO) 5.4 % (21-51); MEAN CORPUSCULAR HEMOGLOBIN 30.2 PG (27.0-31.0); MEAN CORPUSCULAR HGB CONC 33.4 g/dL (33.0-36.5); MEAN CORPUSCULAR VOLUME 90.3 FL (78-98); MEAN PLATELET VOLUME 8.3 FL (7.4-10.4); MONOCYTES # (AUTO) 0.7 X10'3 (0-0.9); MONOCYTES % (AUTO) 7.3 % (2-12); NEUTROPHILS # (AUTO) 7.5 X10'3 (1.8-7.7); NEUTROPHILS % (AUTO) 77.3 % (42-75); PLATELET COUNT 176 X10'3 (140-440); RED BLOOD COUNT 3.47 X10'6 (4.70-6.10); WHITE BLOOD COUNT 9.7 X10'3 (4.5-11.0)
[2018-08-24 00:50] LABS: CLARITY,URINE SLIGHTLY CLOUDY (Clear); COLOR,URINE YELLOW (Yellow); GLUCOSE, URINE NEGATIVE (Neg); KETONES,URINE NEGATIVE (Neg); LEUKOCYTE ESTERASE ,URINE NEGATIVE (Neg); NITRITES, URINE NEGATIVE (Neg); OCCULT BLOOD,URINE LARGE (Neg); PH,URINE 5.5 (4.8-8.0); PROTEIN,URINE TRACE mg/dl (Neg); UROBILINOGEN,URINE 0.2 E.U/dL (0.2-1.0)
[2018-08-24 00:57] LABS: UA COLLECTION TYPE URINAL
[2018-08-24 00:59] LABS: BACTERIA,URINE 1+ /HPF (Neg); RBC,URINE 50-100 /HPF (0-2); SQUAMOUS EPITHELIAL CELL,UR FEW /LPF (FEW)
[2018-08-24 01:05] LABS: ALANINE AMINOTRANSFERASE 16 U/L (12-78); ALBUMIN 3.4 G/DL (3.4-5.0); ALBUMIN/GLOBULIN RATIO 0.8 (1.1-1.5); ALKALINE PHOSPHATASE 92 IU/L (46-116); ANION GAP 11 (8-16); ASPARTATE AMINO TRANSFERASE 19 U/L (10-37); BILIRUBIN,TOTAL 0.4 MG/DL (0.1-1.0); BLOOD UREA NITROGEN 38 MG/DL (7-18); BUN/CREATININE RATIO 12.2 (5.4-32.0); CALCIUM 8.8 MG/DL (8.5-10.1); CHLORIDE 104 MMOL/L (99-107); CREATININE 3.11 MG/DL (0.60-1.10); GLUCOSE 157 MG/DL (70-104); SODIUM 141 MMOL/L (135-145); TOTAL CARBON DIOXIDE 26.3 MMOL/L (24-32); TOTAL PROTEIN 7.9 G/DL (6.4-8.2); eGFR 19 ML/MIN
[2018-08-24 03:33] VITALS: BP 186/89
== END 2018-08-24 03:36 | disposition home or self-care (01) ==
LOC: ER 23:35
DX: R91.1 Solitary pulmonary nodule (principal); N13.2 Hydronephrosis with renal and ureteral calculous obstruction; I25.10 Atherosclerotic heart disease of native coronary artery without angina pectoris; I25.2 Old myocardial infarction; I13.10 Hypertensive heart and chronic kidney disease without heart failure, with stage 1 through stage 4 chronic kidney disease, or unspecified chronic kidney disease; E11.22 Type 2 diabetes mellitus with diabetic chronic kidney disease; N18.9 Chronic kidney disease, unspecified; Z98.61 Coronary angioplasty status; Z79.899 Other long term (current) drug therapy
CPT/HCPCS: 36415; 74176; 80053; 81001; 85025; 87088; 96374; 96375; 99284; J2270; J2405; J7030

== ENCOUNTER 2018-12-12 06:31 | Day surgery (SDC) | payer MEDICAID ==
[2018-12-12] VITALS (13 sets, daily range): BP systolic 112–173; BP diastolic 55–80
[~2018-12-12] VITALS: Ht 167.6 cm; Wt 63.7 kg
[~2018-12-12 06:31] MED LIST changes: -HYDR-4353 PO
[2018-12-12] MEDS ORDERED: normal saline 1000ml 1,000 ML IV PRN (06:50)
[2018-12-12 07:13] LABS: BASOPHILS # (AUTO) 0.1 X10'3 (0-0.2); BASOPHILS % (AUTO) 1.5 % (0-1); EOSINOPHILS # (AUTO) 0.8 X10'3 (0-0.9); HEMOGLOBIN 10.7 g/dl (14.0-17.9); LYMPHOCYTES # (AUTO) 0.6 X10'3 (1.1-4.8); LYMPHOCYTES % (AUTO) 11.2 % (21-51); MEAN CORPUSCULAR HEMOGLOBIN 30.1 PG (27.0-31.0); MEAN CORPUSCULAR HGB CONC 33.5 g/dL (33.0-36.5); MEAN CORPUSCULAR VOLUME 90.1 FL (78-98); MEAN PLATELET VOLUME 7.8 FL (7.4-10.4); MONOCYTES # (AUTO) 0.6 X10'3 (0-0.9); MONOCYTES % (AUTO) 11.3 % (2-12); NEUTROPHILS # (AUTO) 3.1 X10'3 (1.8-7.7); PLATELET COUNT 175 X10'3 (140-440); RED BLOOD COUNT 3.55 X10'6 (4.70-6.10); RED CELL DISTRIBUTION WIDTH 13.4 % (11.5-14.5); WHITE BLOOD COUNT 5.1 X10'3 (4.5-11.0)
[2018-12-12 07:17] LABS: ALBUMIN 3.5 G/DL (3.4-5.0); ANION GAP 11 (8-16); BLOOD UREA NITROGEN 46 MG/DL (7-18); BUN/CREATININE RATIO 13.8 (5.4-32.0); CHLORIDE 106 MMOL/L (99-107); CREATININE 3.34 MG/DL (0.60-1.10); GLUCOSE 147 MG/DL (70-104); SODIUM 143 MMOL/L (135-145); TOTAL CARBON DIOXIDE 26.2 MMOL/L (24-32); eGFR 18 ML/MIN
[2018-12-12] MEDS ORDERED: FURO-150 PO (07:24)
[2018-12-12] MEDS ORDERED: BRIM5DRO2 OP (07:24)
[2018-12-12] MEDS ORDERED: CARV-50 PO (07:24)
[2018-12-12] MEDS ORDERED: ASPI81TA52 PO (07:24)
[2018-12-12] MEDS ORDERED: ISOS120T13 PO (07:24)
[2018-12-12] MEDS ORDERED: ATOR40TA PO (07:24)
[2018-12-12] MEDS ORDERED: HYDR-4070 PO (07:24)
[2018-12-12] MEDS ORDERED: midazolam 2 mg/2 ml injection IV PRN (07:50)
[2018-12-12] MEDS ORDERED: LIDOcaine 1%/PF 5ML 10 MG/ML VIAL SQ ONE (07:50)
[2018-12-12] MEDS ORDERED: fentaNYL/PF 50MCG/1 ML 2ML syringe IV PRN (07:50)
[2018-12-12] MEDS ORDERED: heparin 1,000 UNITS/NS 500ml 500 ML ICATH ONE (07:50)
[2018-12-12] MEDS ORDERED: fentaNYL/PF 50MCG/1 ML 2ML syringe ONE ×2 (07:51→08:30)
[2018-12-12] MEDS ORDERED: midazolam 2 mg/2 ml injection ONE ×2 (07:51→08:30)
[2018-12-12] MEDS ORDERED: heparin 1,000 UNITS/NS 500ml 500 ML ONE (07:52)
[2018-12-12] MEDS ORDERED: LIDOcaine 1%/PF 5ML 10 MG/ML VIAL ONE (07:52)
[2018-12-12] MEDS ORDERED: iohexol 300mg/ml 100ml inj. ONE (07:52)
--- NOTE | 2018-12-12 11:00 | NUR ---
telephone order from Dr. Khanna that patient may discharge 4 hours post procedure. orders recd and initiated.
== END 2018-12-12 13:35 | disposition home or self-care (01) ==
LOC: SSTAY O 06:31
PROVIDERS: ATTEND Radiology Vascular & Interventional Radiology
DX: E11.51 Type 2 diabetes mellitus with diabetic peripheral angiopathy without gangrene (principal); I70.213 Atherosclerosis of native arteries of extremities with intermittent claudication, bilateral legs; I70.92 Chronic total occlusion of artery of the extremities; I10 Essential (primary) hypertension; I25.2 Old myocardial infarction; Z87.891 Personal history of nicotine dependence; Z79.82 Long term (current) use of aspirin; Z79.899 Other long term (current) drug therapy
CPT/HCPCS: 36246; 36415; 75716; 76937; 80048; 85025; 85610; 99152; 99153; C1769; C1894; J1644; J2250; J3010; J7030; Q9967

== ENCOUNTER 2020-01-28 16:41 | Inpatient (IN) | payer MEDICAID ==
[~2020-01-28] VITALS: Ht 167.6 cm; Wt 62.7 kg
[~2020-01-28 16:41] MED LIST changes: +ASPI81TA52 PO; +ATOR40TA PO; +BRIM5DRO2 OP; +CARV-50 PO; +FURO-150 PO; +HYDR-4070 PO; +ISOS120T13 PO; -NO HOME MEDS; -ONDA4TAB6 PO; -TADA20TA PO; -[UNRECOGNIZED DRUG - CODE] TP
[2020-01-28 17:59] LABS: BASOPHILS % (AUTO) 0.4 % (0-1); EOSINOPHILS % (AUTO) 0 % (0-6); HEMATOCRIT 38.6 % (42.0-52.0); HEMOGLOBIN 12.9 g/dl (14.0-17.9); LYMPHOCYTES # (AUTO) 0.6 X10'3 (1.1-4.8); LYMPHOCYTES % (AUTO) 7.3 % (21-51); MEAN CORPUSCULAR HEMOGLOBIN 30.6 PG (27.0-31.0); MEAN CORPUSCULAR HGB CONC 33.3 g/dL (33.0-36.5); MEAN CORPUSCULAR VOLUME 91.9 FL (78-98); MEAN PLATELET VOLUME 8.2 FL (7.4-10.4); MONOCYTES # (AUTO) 0.7 X10'3 (0-0.9); MONOCYTES % (AUTO) 8.3 % (2-12); NEUTROPHILS # (AUTO) 7.2 X10'3 (1.8-7.7); PLATELET COUNT 166 X10'3 (140-440); RED CELL DISTRIBUTION WIDTH 13.6 % (11.5-14.5); WHITE BLOOD COUNT 8.6 X10'3 (4.5-11.0)
[2020-01-28 18:14] LABS: ALANINE AMINOTRANSFERASE 27 U/L (12-78); ALBUMIN 3.6 G/DL (3.4-5.0); ALBUMIN/GLOBULIN RATIO 0.7 (1.1-1.5); ALKALINE PHOSPHATASE 86 IU/L (46-116); ANION GAP 10 (8-16); ASPARTATE AMINO TRANSFERASE 36 U/L (10-37); BILIRUBIN,TOTAL 0.8 MG/DL (0.1-1.0); BLOOD UREA NITROGEN 50 MG/DL (7-18); BUN/CREATININE RATIO 13.2 (5.4-32.0); CALCIUM 9.3 MG/DL (8.5-10.1); CHLORIDE 104 MMOL/L (99-107); CREATININE 3.78 MG/DL (0.60-1.10); GLUCOSE 199 MG/DL (70-104); POTASSIUM 4.5 MMOL/L (3.5-5.1); SODIUM 141 MMOL/L (135-145); TOTAL CARBON DIOXIDE 26.8 MMOL/L (24-32); TOTAL PROTEIN 8.8 G/DL (6.4-8.2); eGFR 15 ML/MIN
[2020-01-28] MEDS ORDERED: CefTRIAXone/D5W-Rocephin 1gm 50 ML IV ONE (19:40)
[2020-01-28] MEDS ORDERED: normal saline 1000ML IV soln IVB ONE (20:50)
[2020-01-28 21:41] LABS: CLARITY,URINE CLEAR (Clear); COLOR,URINE YELLOW (Yellow); GLUCOSE, URINE NEGATIVE (Neg); KETONES,URINE TRACE mg/dl (Neg); LEUKOCYTE ESTERASE ,URINE NEGATIVE (Neg); NITRITES, URINE NEGATIVE (Neg); OCCULT BLOOD,URINE SMALL (Neg); PROTEIN,URINE 100 mg/dl (Neg); UROBILINOGEN,URINE 0.2 E.U/dL (0.2-1.0)
[2020-01-28 21:44] LABS: UA COLLECTION TYPE NON-SPECIFIED
[2020-01-28 21:45] LABS: BACTERIA,URINE NONE SEEN /HPF (Neg); SQUAMOUS EPITHELIAL CELL,UR FEW /LPF (FEW); WBC,URINE NONE SEEN /HPF (0-4)
[2020-01-28 21:48] LABS: D-DIMER 1.43 MG/L FEU (0-0.50); PARTIAL THROMBOPLASTIN TIME 30 SECONDS (22-32)
[2020-01-28] MEDS ORDERED: HYDR100T27 PO (21:51)
[2020-01-28] MEDS ORDERED: CARV6.253 PO (21:51)
[2020-01-28] MEDS ORDERED: ondansetron/PF 4mg/2ml inj IV PRN (23:25)
[2020-01-28] MEDS ORDERED: magnesium hydroxide 30ml (MOM) UD suspension PO PRN (23:25)
[2020-01-28] MEDS ORDERED: potassium Cl 20 mEq SR tablet PO PRN ×2 (23:25)
[2020-01-28] MEDS ORDERED: potassium CL 10mEq/100ml bag 100 ML IV PRN ×2 (23:25)
[2020-01-28] MEDS ORDERED: acetaminophen 325mg tablet PO PRN (23:25)
[2020-01-28] MEDS ORDERED: mag hydrox/Alum hydrox/simeth 30ml oral suspension PO PRN (23:25)
[2020-01-29] VITALS (7 sets, daily range): BP systolic 104–136; BP diastolic 46–66
--- NOTE | 2020-01-29 01:45 | NUR ---
Covid+ Patient transferred from ER via gurney. Vitals stable at transfer of care. Belongings transferred up with patient in belongings bag. Tele monitor applied. MRSA swab completed, Patient placed in single room and once settled door was closed to isolate patient. Will continue to monitor the patient closely.
--- NOTE | 2020-01-29 06:00 | NUR ---
Patient in room PCU 3019. I have received report from JOSE EDUARDO SIMON and had the opportunity to ask questions and assume patient care.
--- NOTE | 2020-01-29 06:05 | NUR ---
Patient in room PCU 3019. I have received report from Angelina SIMON and had the opportunity to ask questions and assume patient care.
[2020-01-29 06:08] LABS: BASOPHILS % (AUTO) 0.9 % (0-1); EOSINOPHILS % (AUTO) 0.4 % (0-6); HEMATOCRIT 33.8 % (42.0-52.0); HEMOGLOBIN 11.5 g/dl (14.0-17.9); LYMPHOCYTES # (AUTO) 0.7 X10'3 (1.1-4.8); MEAN CORPUSCULAR HEMOGLOBIN 30.9 PG (27.0-31.0); MEAN CORPUSCULAR HGB CONC 33.9 g/dL (33.0-36.5); MEAN CORPUSCULAR VOLUME 91.4 FL (78-98); MEAN PLATELET VOLUME 8.3 FL (7.4-10.4); MONOCYTES # (AUTO) 0.6 X10'3 (0-0.9); MONOCYTES % (AUTO) 11.7 % (2-12); NEUTROPHILS # (AUTO) 3.9 X10'3 (1.8-7.7); PLATELET COUNT 144 X10'3 (140-440); RED CELL DISTRIBUTION WIDTH 13.3 % (11.5-14.5); WHITE BLOOD COUNT 5.3 X10'3 (4.5-11.0)
[2020-01-29 06:12] LABS: ALANINE AMINOTRANSFERASE 25 U/L (12-78); ALBUMIN/GLOBULIN RATIO 0.7 (1.1-1.5); ALKALINE PHOSPHATASE 69 IU/L (46-116); ANION GAP 7 (8-16); ASPARTATE AMINO TRANSFERASE 38 U/L (10-37); BILIRUBIN,TOTAL 0.5 MG/DL (0.1-1.0); BLOOD UREA NITROGEN 54 MG/DL (7-18); BUN/CREATININE RATIO 15.1 (5.4-32.0); CHLORIDE 108 MMOL/L (99-107); CREATININE 3.57 MG/DL (0.60-1.10); GLUCOSE 130 MG/DL (70-104); POTASSIUM 3.7 MMOL/L (3.5-5.1); SODIUM 144 MMOL/L (135-145); TOTAL PROTEIN 7.6 G/DL (6.4-8.2); eGFR 16 ML/MIN
--- NOTE | 2020-01-29 06:36 | NUR ---
Problems reprioritized. Patient report given, questions answered & plan of care reviewed with Benjamin RN. patient stable at transfer of care. All current needs met
[2020-01-29] MEDS: aspirin 81mg tablet.DR PO SCH (07:39)
[2020-01-29] MEDS: furosemide 20MG tablet PO SCH (07:39)
[2020-01-29] MEDS: dexamethasone inj 6 MG in normal saline 100ml IV soln 100 ML IV SCH (07:39)
[2020-01-29] MEDS: isosorbide dinitrate 30mg tablet PO SCH ×4 (07:40→21:06)
[2020-01-29] MEDS: hydrALAZINE 25 MG tablet PO SCH ×3 (07:40→16:23)
[2020-01-29] MEDS: carvedilol 6.25mg tablet PO SCH ×2 (07:41→21:06)
[2020-01-29] MEDS: [UNRECOGNIZED DRUG - OTHER] EACHEYE SCH ×2 (08:00→20:00)
[2020-01-29] MEDS: BRIMONIDINE TARTRATE EACHEYE SCH ×2 (08:00→20:00)
[2020-01-29] MEDS: TIMOLOL EACHEYE SCH ×2 (08:00→20:00)
[2020-01-29] MEDS: K and/or MAG REPLACEMENT MC SCH ×2 (08:00→20:00)
[2020-01-29] MEDS: heparin, porcine 5000 units/ml vial SQ SCH ×3 (09:00→16:21)
--- NOTE | 2020-01-29 09:23 | NUR ---
01/29/20 0000 dose of heparin not administered by night nurse but left on EMAR in red. Dose was non-administered by day nurse and next dose at 01/29/20 0800 will be administered as scheduled.
--- NOTE | 2020-01-29 16:00 | NUR ---
PAGER ID: [phone] MESSAGE: Re: Royal Kendrick. Room: 3019. Pt has Echo ordered but apparently the techs aren't allowed to go into COVID rooms. Is the echo essential? -[facility] #[id number] Dr. Benavides paged concerning echo order.
--- NOTE | 2020-01-29 16:07 | NUR ---
CARDIOLOGY REPORT FROM [facility] REQUESTED PER DR. SHORT. CONTACTED PATIENTS CURRENT GENERAL LEDGER ACCOUNTANT HANH BARRIENTOS AND OBTAINED REPORT, WHICH IS IN PATIENTS MEDICAL BINDER.
--- NOTE | 2020-01-29 18:00 | NUR ---
Orientee documentation: I have reviewed and agree with all interventions, assessments performed and documented by Calista SIMON.
--- NOTE | 2020-01-29 18:16 | NUR ---
Problems reprioritized. Patient report given, questions answered & plan of care reviewed with
--- NOTE | 2020-01-29 18:17 | NUR ---
Problems reprioritized. Patient report given, questions answered & plan of care reviewed with Yeyo SIMON.
--- NOTE | 2020-01-29 18:30 | NUR ---
Patient in room PCU 3019. I have received report from AURORA HOUSE and had the opportunity to ask questions and assume patient care.
[2020-01-29] MEDS: atorvastatin 20mg tablet PO SCH (21:06)
[2020-01-30] VITALS (7 sets, daily range): BP systolic 106–135; BP diastolic 46–64
[2020-01-30] MEDS: heparin, porcine 5000 units/ml vial SQ SCH ×3 (01:13→17:34)
[2020-01-30] MEDS: hydrALAZINE 25 MG tablet PO SCH ×3 (01:30→17:38)
[2020-01-30 05:43] LABS: BASOPHILS % (AUTO) 0.1 % (0-1); EOSINOPHILS % (AUTO) 0 % (0-6); HEMATOCRIT 32.6 % (42.0-52.0); LYMPHOCYTES # (AUTO) 0.4 X10'3 (1.1-4.8); LYMPHOCYTES % (AUTO) 5.5 % (21-51); MEAN CORPUSCULAR HEMOGLOBIN 30.3 PG (27.0-31.0); MEAN CORPUSCULAR HGB CONC 33.6 g/dL (33.0-36.5); MEAN CORPUSCULAR VOLUME 90.1 FL (78-98); MEAN PLATELET VOLUME 8.6 FL (7.4-10.4); MONOCYTES # (AUTO) 0.4 X10'3 (0-0.9); NEUTROPHILS # (AUTO) 6.3 X10'3 (1.8-7.7); NEUTROPHILS % (AUTO) 88.4 % (42-75); PLATELET COUNT 147 X10'3 (140-440); RED BLOOD COUNT 3.62 X10'6 (4.70-6.10); RED CELL DISTRIBUTION WIDTH 13.6 % (11.5-14.5); WHITE BLOOD COUNT 7.1 X10'3 (4.5-11.0)
--- NOTE | 2020-01-30 06:00 | NUR ---
Patient in room PCU 3019. I have received report from STEPHANIE and had the opportunity to ask questions and assume patient care.
[2020-01-30 06:06] LABS: ALANINE AMINOTRANSFERASE 38 U/L (12-78); ALBUMIN 2.8 G/DL (3.4-5.0); ALBUMIN/GLOBULIN RATIO 0.6 (1.1-1.5); ALKALINE PHOSPHATASE 66 IU/L (46-116); ANION GAP 11 (8-16); ASPARTATE AMINO TRANSFERASE 44 U/L (10-37); BILIRUBIN,TOTAL 0.4 MG/DL (0.1-1.0); BLOOD UREA NITROGEN 72 MG/DL (7-18); BUN/CREATININE RATIO 20.9 (5.4-32.0); CALCIUM 8.9 MG/DL (8.5-10.1); CHLORIDE 107 MMOL/L (99-107); CREATININE 3.45 MG/DL (0.60-1.10); GLUCOSE 164 MG/DL (70-104); POTASSIUM 4.4 MMOL/L (3.5-5.1); SODIUM 143 MMOL/L (135-145); TOTAL CARBON DIOXIDE 25.5 MMOL/L (24-32); TOTAL PROTEIN 7.3 G/DL (6.4-8.2); eGFR 17 ML/MIN
--- NOTE | 2020-01-30 06:09 | NUR ---
Problems reprioritized. Patient report given, questions answered & plan of care reviewed with AURORA HOUSE AND AURORA SANTOS.
--- NOTE | 2020-01-30 06:10 | NUR ---
Patient in room PCU 3019. I have received report from Dunia SIMON and had the opportunity to ask questions and assume patient care.
[2020-01-30] MEDS: dexamethasone inj 6 MG in normal saline 100ml IV soln 100 ML IV SCH (07:22)
[2020-01-30] MEDS: aspirin 81mg tablet.DR PO SCH (07:34)
[2020-01-30] MEDS: isosorbide dinitrate 30mg tablet PO SCH ×4 (07:35→20:24)
[2020-01-30] MEDS: carvedilol 6.25mg tablet PO SCH ×2 (07:35→20:24)
[2020-01-30] MEDS: furosemide 20MG tablet PO SCH (07:35)
[2020-01-30] MEDS: TIMOLOL EACHEYE SCH (08:00)
[2020-01-30] MEDS: [UNRECOGNIZED DRUG - OTHER] EACHEYE SCH (08:00)
[2020-01-30] MEDS: BRIMONIDINE TARTRATE EACHEYE SCH (08:00)
[2020-01-30] MEDS: K and/or MAG REPLACEMENT MC SCH ×2 (08:00→20:00)
--- NOTE | 2020-01-30 18:00 | NUR ---
Orientee documentation: I have reviewed and agree with all interventions, assessments performed and documented by Calista SIMON.
--- NOTE | 2020-01-30 18:20 | NUR ---
Problems reprioritized. Patient report given, questions answered & plan of care reviewed with Prudence RN.
--- NOTE | 2020-01-30 18:20 | NUR ---
Problems reprioritized. Patient report given, questions answered & plan of care reviewed with PRUDENCE.
--- NOTE | 2020-01-30 18:23 | NUR ---
Patient in room PCU 3019. I have received report from TOM SIMON and had the opportunity to ask questions and assume patient care.
[2020-01-30] MEDS: brimonidine 0.2% 5 ML ophthalmic drops EACHEYE SCH (20:25)
[2020-01-30] MEDS: atorvastatin 20mg tablet PO SCH (20:25)
[2020-01-30] MEDS: timolol 0.5% ophthalmic solution 5ml bottle EACHEYE SCH (20:25)
[2020-01-31] MEDS: heparin, porcine 5000 units/ml vial SQ SCH ×2 (00:36→09:03)
[2020-01-31 02:00] VITALS: BP 132/57
[2020-01-31 06:00] VITALS: BP_SYST 100; BP_SYST 124; BP_DIAS 45; BP_DIAS 48
--- NOTE | 2020-01-31 06:46 | NUR ---
Patient in room PCU 3013. I have received report from AURORA Adame and had the opportunity to ask questions and assume patient care.
[2020-01-31 07:46] LABS: BASOPHILS % (AUTO) 0 % (0-1); EOSINOPHILS % (AUTO) 0 % (0-6); HEMATOCRIT 31.4 % (42.0-52.0); HEMOGLOBIN 10.6 g/dl (14.0-17.9); LYMPHOCYTES # (AUTO) 0.4 X10'3 (1.1-4.8); LYMPHOCYTES % (AUTO) 4.1 % (21-51); MEAN CORPUSCULAR HEMOGLOBIN 30.8 PG (27.0-31.0); MEAN CORPUSCULAR HGB CONC 33.9 g/dL (33.0-36.5); MEAN PLATELET VOLUME 9.4 FL (7.4-10.4); MONOCYTES # (AUTO) 0.6 X10'3 (0-0.9); NEUTROPHILS # (AUTO) 9.5 X10'3 (1.8-7.7); NEUTROPHILS % (AUTO) 89.9 % (42-75); PLATELET COUNT 155 X10'3 (140-440); RED BLOOD COUNT 3.45 X10'6 (4.70-6.10); RED CELL DISTRIBUTION WIDTH 13.6 % (11.5-14.5); WHITE BLOOD COUNT 10.5 X10'3 (4.5-11.0)
[2020-01-31 07:59] LABS: ALANINE AMINOTRANSFERASE 41 U/L (12-78); ALBUMIN 2.7 G/DL (3.4-5.0); ALBUMIN/GLOBULIN RATIO 0.6 (1.1-1.5); ALKALINE PHOSPHATASE 71 IU/L (46-116); ANION GAP 10 (8-16); ASPARTATE AMINO TRANSFERASE 32 U/L (10-37); BILIRUBIN,TOTAL 0.3 MG/DL (0.1-1.0); BLOOD UREA NITROGEN 75 MG/DL (7-18); BUN/CREATININE RATIO 25.8 (5.4-32.0); CALCIUM 8.4 MG/DL (8.5-10.1); CHLORIDE 105 MMOL/L (99-107); CREATININE 2.91 MG/DL (0.60-1.10); GLUCOSE 194 MG/DL (70-104); POTASSIUM 4.4 MMOL/L (3.5-5.1); SODIUM 140 MMOL/L (135-145); TOTAL CARBON DIOXIDE 25.1 MMOL/L (24-32); TOTAL PROTEIN 7.2 G/DL (6.4-8.2); eGFR 21 ML/MIN
[2020-01-31] MEDS: K and/or MAG REPLACEMENT MC SCH (08:00)
[2020-01-31] MEDS: timolol 0.5% ophthalmic solution 5ml bottle EACHEYE SCH (08:00)
[2020-01-31] MEDS: brimonidine 0.2% 5 ML ophthalmic drops EACHEYE SCH (08:00)
[2020-01-31] MEDS: isosorbide dinitrate 30mg tablet PO SCH ×2 (09:00→13:00)
[2020-01-31] MEDS: carvedilol 6.25mg tablet PO SCH (09:02)
[2020-01-31] MEDS: hydrALAZINE 25 MG tablet PO SCH ×2 (09:02)
[2020-01-31] MEDS: aspirin 81mg tablet.DR PO SCH (09:02)
--- NOTE | 2020-01-31 09:25 | NUR ---
Initial: Pt admit with COVID-19 with a hx of CHF with EF 15% in 2018 per H&P. Pt with OSCAR/CKD likely d/t cardiorenal syndrome per MD notes. Pt on a heart healthy diet initially with average 50% PO intake however most recently up to 75-100% meeting estimated nutrient needs. LBM 01/29. No nutrition intervention warranted at this time. Will continue to follow. Recommendations: 1) Continue heart healthy diet 2) Monitor need for additional protein/ONS 3) Bowel care per rx 4) Scaled weights per rx Addendum: 01/31/20 at [address] Amended: Links added.
[2020-01-31] MEDS: dexamethasone inj 6 MG in normal saline 100ml IV soln 100 ML IV SCH (09:36)
[2020-01-31] MEDS ORDERED: DEXA6TAB PO (14:15)
[2020-01-31 14:42] VITALS: BP 118/37
--- NOTE | 2020-01-31 17:11 | NUR ---
Pt D/C'd home in stable condition. O2sat 96% R/A. NO c/o SOB or respiratory distress. IV and tele box removed prior discharge. Pt was escorted with required PPE to main lobby. Left the hospital via private vehicle accompanied by family member.
== END 2020-01-31 17:05 | disposition home or self-care (01) | DRG 137 ==
LOC: ER 16:42 → ED HOLD 23:23 → PCU 3S 01-29 00:45
PROVIDERS: ADMIT Internal Medicine; ATTEND Internal Medicine
DX: U07.1 COVID-19 (principal); J98.8 Other specified respiratory disorders; I25.10 Atherosclerotic heart disease of native coronary artery without angina pectoris; I13.0 Hypertensive heart and chronic kidney disease with heart failure and stage 1 through stage 4 chronic kidney disease, or unspecified chronic kidney disease; E11.22 Type 2 diabetes mellitus with diabetic chronic kidney disease; L40.9 Psoriasis, unspecified; E78.5 Hyperlipidemia, unspecified; N17.9 Acute kidney failure, unspecified; Z87.891 Personal history of nicotine dependence; Z87.442 Personal history of urinary calculi; Z79.82 Long term (current) use of aspirin; N18.9 Chronic kidney disease, unspecified; I50.9 Heart failure, unspecified; I48.91 Unspecified atrial fibrillation; I25.2 Old myocardial infarction
CPT/HCPCS: 36415; 71045; 80053; 81001; 82948; 83605; 83615; 83880; 84145; 84484; 85025; 85379; 85610; 85730; 87040; 87081; 87635; 96374; 99285; C9803; G0378; J0696; J1100; J1644; J7030

== ENCOUNTER 2020-11-19 13:07 | Inpatient (IN) | payer MEDICAID ==
[~2020-11-19] VITALS: Ht 167.6 cm; Wt 60.9 kg
[~2020-11-19 13:07] MED LIST changes: +BRIM5DRO2 LEFTEYE; -BRIM5DRO2 OP; -CARV-50 PO; +CARV6.253 PO; +DEXA6TAB PO; -HYDR-4070 PO; +HYDR100T27 PO
--- NOTE | 2020-11-19 13:18 | NUR ---
LEVEL 2 STROKE ALERT ACTIVATED BASED ON DIZZINESS COMPLAINT
[2020-11-19] MEDS ORDERED: iohexol 350MG/ML 100ml bottle IV ONE (13:23)
[2020-11-19 13:41] LABS: BASOPHILS # (AUTO) 0.1 X10'3 (0-0.2); BASOPHILS % (AUTO) 1.1 % (0-1); EOSINOPHILS # (AUTO) 0.4 X10'3 (0-0.9); EOSINOPHILS % (AUTO) 4.6 % (0-6); HEMOGLOBIN 12.7 g/dl (14.0-17.9); LYMPHOCYTES % (AUTO) 10.2 % (21-51); MEAN CORPUSCULAR HEMOGLOBIN 29.7 PG (27.0-31.0); MEAN CORPUSCULAR HGB CONC 32.6 g/dL (33.0-36.5); MEAN CORPUSCULAR VOLUME 91.1 FL (78-98); MEAN PLATELET VOLUME 8.2 FL (7.4-10.4); MONOCYTES # (AUTO) 0.8 X10'3 (0-0.9); MONOCYTES % (AUTO) 8.8 % (2-12); NEUTROPHILS # (AUTO) 7.2 X10'3 (1.8-7.7); NEUTROPHILS % (AUTO) 75.3 % (42-75); PLATELET COUNT 194 X10'3 (140-440); RED BLOOD COUNT 4.28 X10'6 (4.70-6.10); RED CELL DISTRIBUTION WIDTH 13.4 % (11.5-14.5); WHITE BLOOD COUNT 9.6 X10'3 (4.5-11.0)
--- NOTE | 2020-11-19 13:41 | NUR ---
BREAKING PRIMARY NURSE AT THIS TIME ,PT BACK FROM CT SCAN.
[2020-11-19 13:55] LABS: ALANINE AMINOTRANSFERASE 15 U/L (12-78); ALBUMIN 3.5 G/DL (3.4-5.0); ALBUMIN/GLOBULIN RATIO 0.7 (1.1-1.5); ALKALINE PHOSPHATASE 75 IU/L (46-116); ANION GAP 12 (8-16); ASPARTATE AMINO TRANSFERASE 14 U/L (10-37); BILIRUBIN,TOTAL 0.7 MG/DL (0.1-1.0); BLOOD UREA NITROGEN 45 MG/DL (7-18); CALCIUM 8.7 MG/DL (8.5-10.1); CHLORIDE 103 MMOL/L (99-107); CREATININE 3.01 MG/DL (0.60-1.10); GLUCOSE 139 MG/DL (70-104); POTASSIUM 4.6 MMOL/L (3.5-5.1); SODIUM 142 MMOL/L (135-145); TOTAL CARBON DIOXIDE 27.2 MMOL/L (24-32); TOTAL PROTEIN 8.3 G/DL (6.4-8.2); eGFR 20 ML/MIN
[2020-11-19] MEDS ORDERED: aspirin 81mg tab.chew PO ONE (14:20)
--- NOTE | 2020-11-19 15:28 | NUR ---
STROKE RN BRITTANY AT BEDSIDE.
[2020-11-19] MEDS ORDERED: bisacodyl 10mg suppository rectal RC PRN (16:35)
[2020-11-19] MEDS ORDERED: potassium Cl 20 mEq SR tablet PO PRN ×2 (16:35)
[2020-11-19] MEDS ORDERED: magnesium 4gm in 100ml NS 100 ML IV PRN (16:35)
[2020-11-19] MEDS ORDERED: diphenhydrAMINE 25mg capsule PO PRN (16:35)
[2020-11-19] MEDS ORDERED: magnesium Cl slow-release 64mg tablet PO PRN (16:35)
[2020-11-19] MEDS ORDERED: morphine 2 MG/ML inj. syringe IV PRN ×2 (16:35)
[2020-11-19] MEDS ORDERED: potassium Cl 40MEQ/1/2NS 520ml 520 ML IV PRN ×2 (16:35)
[2020-11-19] MEDS ORDERED: mag hydrox/Alum hydrox/simeth 30ml oral suspension PO PRN (16:35)
[2020-11-19] MEDS ORDERED: HYDROcodone/acetaminophen 5mg/325mg tablet PO PRN (16:35)
[2020-11-19] MEDS ORDERED: acetaminophen 650mg rectal suppository RC PRN (16:35)
[2020-11-19] MEDS ORDERED: ondansetron/PF 4mg/2ml inj IV PRN (16:35)
[2020-11-19] MEDS ORDERED: acetaminophen 325mg tablet PO PRN ×2 (16:35)
[2020-11-19] MEDS ORDERED: HYDROcodone/acetaminophen 10/325mg tab PO PRN (16:35)
[2020-11-19] MEDS ORDERED: magnesium 2GM in 50ml NS 50 ML IV PRN (16:35)
[2020-11-19] MEDS ORDERED: magnesium hydroxide 30ml (MOM) UD suspension PO PRN (16:35)
[2020-11-19] MEDS: normal saline 1000ml 1,000 ML IV SCH (16:57)
[2020-11-19 17:07] LABS: CHOL/HDL RATIO 4.6 (0.00-4.99); CHOLESTEROL 241 MG/DL (0-200); HDL CHOLESTEROL 52 MG/DL (35-60); HEMOGLOBIN A1C 6.5 % (4.5-6.2); LDL CHOLESTEROL 124 MG/DL (50-100); TRIGLYCERIDES 158 MG/DL (20-135)
[2020-11-19] MEDS: K and/or MAG REPLACEMENT MC SCH (20:00)
[2020-11-19 20:17] LABS: CLARITY,URINE CLEAR (Clear); COLOR,URINE YELLOW (Yellow); UA COLLECTION TYPE NON-SPECIFIED
[2020-11-19 20:18] LABS: GLUCOSE, URINE NEGATIVE (Neg); KETONES,URINE NEGATIVE (Neg); LEUKOCYTE ESTERASE ,URINE NEGATIVE (Neg); NITRITES, URINE NEGATIVE (Neg); OCCULT BLOOD,URINE NEGATIVE (Neg); PROTEIN,URINE NEGATIVE (Neg); UROBILINOGEN,URINE 0.2 E.U/dL (0.2-1.0)
[2020-11-19] MEDS: carvedilol 6.25mg tablet PO SCH (20:44)
[2020-11-19] MEDS: isosorbide mononitrate 30mg tab.SR.24H PO SCH (20:44)
[2020-11-19] MEDS: docusate sod 100mg capsule PO SCH (20:45)
[2020-11-19] MEDS: heparin, porcine 5000 units/ml vial SQ SCH (20:45)
[2020-11-19] MEDS: brimonidine 0.2% 5 ML ophthalmic drops LEFTEYE SCH (20:59)
[2020-11-19] MEDS: timolol 0.5% ophthalmic solution 5ml bottle LEFTEYE SCH (20:59)
[2020-11-19] MEDS ORDERED: atorvastatin 20mg tablet PO SCH (21:00)
[2020-11-20] MEDS: hydrALAZINE 25 MG tablet PO SCH ×3 (01:00→16:00)
[2020-11-20 01:52] LABS: EOSINOPHILS # (AUTO) 0.5 X10'3 (0-0.9); HEMOGLOBIN 9.9 g/dl (14.0-17.9); LYMPHOCYTES # (AUTO) 0.7 X10'3 (1.1-4.8); LYMPHOCYTES % (AUTO) 15.8 % (21-51); MEAN CORPUSCULAR HEMOGLOBIN 29.7 PG (27.0-31.0); MEAN CORPUSCULAR HGB CONC 33.1 g/dL (33.0-36.5); MEAN CORPUSCULAR VOLUME 89.7 FL (78-98); MEAN PLATELET VOLUME 7.9 FL (7.4-10.4); MONOCYTES # (AUTO) 0.6 X10'3 (0-0.9); MONOCYTES % (AUTO) 13.9 % (2-12); NEUTROPHILS # (AUTO) 2.8 X10'3 (1.8-7.7); NEUTROPHILS % (AUTO) 59.3 % (42-75); PLATELET COUNT 139 X10'3 (140-440); RED BLOOD COUNT 3.35 X10'6 (4.70-6.10); RED CELL DISTRIBUTION WIDTH 13.2 % (11.5-14.5); WHITE BLOOD COUNT 4.7 X10'3 (4.5-11.0)
[2020-11-20 02:03] LABS: ALANINE AMINOTRANSFERASE 7 U/L (12-78); ALBUMIN 2.2 G/DL (3.4-5.0); ALBUMIN/GLOBULIN RATIO 0.6 (1.1-1.5); ALKALINE PHOSPHATASE 54 IU/L (46-116); ANION GAP 10 (8-16); ASPARTATE AMINO TRANSFERASE 9 U/L (10-37); BILIRUBIN,TOTAL 0.3 MG/DL (0.1-1.0); BLOOD UREA NITROGEN 45 MG/DL (7-18); BUN/CREATININE RATIO 21.3 (5.4-32.0); CALCIUM 7.1 MG/DL (8.5-10.1); CHLORIDE 111 MMOL/L (99-107); CREATININE 2.11 MG/DL (0.60-1.10); GLUCOSE 92 MG/DL (70-104); POTASSIUM 3.5 MMOL/L (3.5-5.1); SODIUM 145 MMOL/L (135-145); TOTAL CARBON DIOXIDE 23.6 MMOL/L (24-32); TOTAL PROTEIN 5.8 G/DL (6.4-8.2); eGFR 30 ML/MIN
[2020-11-20 02:13] LABS: CHOL/HDL RATIO 4.2 (0.00-4.99); CHOLESTEROL 156 MG/DL (0-200); HDL CHOLESTEROL 37 MG/DL (35-60); LDL CHOLESTEROL 95 MG/DL (50-100); MAGNESIUM 2.1 MG/DL (1.5-2.4); PHOSPHORUS 3.1 MG/DL (2.3-4.5); TRIGLYCERIDES 112 MG/DL (20-135)
[2020-11-20] MEDS: normal saline 1000ml 1,000 ML IV SCH (06:01)
[2020-11-20] MEDS: K and/or MAG REPLACEMENT MC SCH (08:00)
[2020-11-20] MEDS ORDERED: aspirin 81mg, enteric-coated 1 TAB TABLET.DR PO SCH (08:00)
[2020-11-20] MEDS ORDERED: furosemide 20MG tablet PO SCH (08:00)
--- NOTE | 2020-11-20 08:14 | NUR ---
ST AT BS FOR SWALLOW EVAL. PT PASSED ST STATES PT WILL DO WELL WITH HEART HEALTHY
--- NOTE | 2020-11-20 09:17 | NUR ---
PT GOING TO MRI AND THEN TO FLOOR
[2020-11-20 10:29] VITALS: BP 160/52
[2020-11-20] MEDS: docusate sod 100mg capsule PO SCH (10:38)
[2020-11-20] MEDS: isosorbide mononitrate 30mg tab.SR.24H PO SCH (10:38)
[2020-11-20] MEDS: carvedilol 6.25mg tablet PO SCH (10:38)
[2020-11-20] MEDS: heparin, porcine 5000 units/ml vial SQ SCH (10:39)
[2020-11-20] MEDS: timolol 0.5% ophthalmic solution 5ml bottle LEFTEYE SCH (10:40)
[2020-11-20] MEDS: brimonidine 0.2% 5 ML ophthalmic drops LEFTEYE SCH (10:40)
--- NOTE | 2020-11-20 12:39 | NUR ---
Tele Neuro consult completed. Neuro Dr to contact Dr Haley direct for orders if any. No new orders at this time.
[2020-11-20 15:00] VITALS: BP 129/46
--- NOTE | 2020-11-20 17:50 | NUR ---
Pt stable for D/C Pt stable for D/C - all d/c ppwk reviewed with pt - pt verbalized understanding. No questions, comment, or concerns at this time. PIV was removed from L arm - pt tolerated well. Tele was removed. No new RX at this time. Advised of follow up appt with PCP within 2-3. Grand-daughter came to get pt - reviewed dr viramontes and meds with her as well as she came to get him. No questions at this time. Pt was wheeled out in W/C by nursing staff to private vehicle.
== END 2020-11-20 18:09 | disposition home or self-care (01) | DRG 47 ==
LOC: ER 13:08 → ED HOLD 16:37 → PCU 3S 11-20 10:16
PROVIDERS: ADMIT Family Medicine; ATTEND Family Medicine
DX: G45.9 Transient cerebral ischemic attack, unspecified (principal); I13.0 Hypertensive heart and chronic kidney disease with heart failure and stage 1 through stage 4 chronic kidney disease, or unspecified chronic kidney disease; E11.22 Type 2 diabetes mellitus with diabetic chronic kidney disease; I50.9 Heart failure, unspecified; Z20.822 Contact with and (suspected) exposure to COVID-19; I12.9 Hypertensive chronic kidney disease with stage 1 through stage 4 chronic kidney disease, or unspecified chronic kidney disease; I25.10 Atherosclerotic heart disease of native coronary artery without angina pectoris; N18.9 Chronic kidney disease, unspecified; L40.9 Psoriasis, unspecified; M19.90 Unspecified osteoarthritis, unspecified site; Z66 Do not resuscitate; M54.2 Cervicalgia; E78.5 Hyperlipidemia, unspecified; Z87.891 Personal history of nicotine dependence; I25.2 Old myocardial infarction; Z79.899 Other long term (current) drug therapy; Z79.82 Long term (current) use of aspirin; Z87.442 Personal history of urinary calculi; Z95.5 Presence of coronary angioplasty implant and graft
CPT/HCPCS: 36415; 70450; 70544; 70547; 70551; 71045; 80053; 80061; 81003; 82948; 83036; 83735; 83880; 84100; 84443; 84484; 85025; 85651; 86885; 86900; 86901; 87081; 87635; 92508; 92616; 93005; 93306; 93880; 97110; 97116; 97162; 99285; C9803; G0378; J1644; J7030; Q9967

== ENCOUNTER 2024-05-30 12:38 | Emergency (ER) | payer MEDICAID ==
[~2024-05-30] VITALS: Ht 167.6 cm; Wt 59.1 kg
[~2024-05-30 12:38] MED LIST changes: -DEXA6TAB PO; +HYDR100T12 PO; -HYDR100T27 PO
[2024-05-30 12:56] VITALS: TEMP 97; O2SAT 97
[2024-05-30 13:28] LABS: BASOPHILS # (AUTO) 0.1 X10'3 (0-0.2); BASOPHILS % (AUTO) 0.8 % (0-1); EOSINOPHILS # (AUTO) 0.9 X10'3 (0-0.9); EOSINOPHILS % (AUTO) 13.1 % (0-6); HEMATOCRIT 34.6 % (42.0-52.0); HEMOGLOBIN 11.3 g/dl (14.0-17.9); LYMPHOCYTES # (AUTO) 1.4 X10'3 (1.1-4.8); LYMPHOCYTES % (AUTO) 20.5 % (21-51); MEAN CORPUSCULAR HEMOGLOBIN 30.3 PG (27.0-31.0); MEAN CORPUSCULAR HGB CONC 32.8 g/dL (33.0-36.5); MEAN CORPUSCULAR VOLUME 92.5 FL (78-98); MEAN PLATELET VOLUME 7.9 FL (7.4-10.4); MONOCYTES # (AUTO) 0.5 X10'3 (0-0.9); NEUTROPHILS # (AUTO) 3.9 X10'3 (1.8-7.7); NEUTROPHILS % (AUTO) 58.6 % (42-75); PLATELET COUNT 205 X10'3 (140-440); RED BLOOD COUNT 3.74 X10'6 (4.70-6.10); RED CELL DISTRIBUTION WIDTH 14.3 % (11.5-14.5); WHITE BLOOD COUNT 6.7 X10'3 (4.5-11.0)
[2024-05-30 13:46] LABS: APTT 28 SECONDS (22-32); PROTHROMBIN TIME 10.2 SECONDS (9.0-12.0)
[2024-05-30 13:55] LABS: ALANINE AMINOTRANSFERASE 17 U/L (12-78); ALBUMIN 3.2 G/DL (3.4-5.0); ALBUMIN/GLOBULIN RATIO 0.6 (1.1-1.5); ALKALINE PHOSPHATASE 79 IU/L (46-116); ANION GAP 8 (8-16); ASPARTATE AMINO TRANSFERASE 17 U/L (10-37); BILIRUBIN,TOTAL 0.3 MG/DL (0.1-1.0); BLOOD UREA NITROGEN 42 MG/DL (7-18); BUN/CREATININE RATIO 14.3 (10.0-20.0); C-REACTIVE PROTEIN 2.83 MG/DL (0.0-0.5); CHLORIDE 103 MMOL/L (99-107); CREATININE 2.93 MG/DL (0.60-1.10); GLUCOSE 148 MG/DL (70-104); POTASSIUM 4.6 MMOL/L (3.5-5.1); SODIUM 140 MMOL/L (135-145); TOTAL CARBON DIOXIDE 28.6 MMOL/L (24-32); TOTAL PROTEIN 8.4 G/DL (6.4-8.2); URIC ACID 11.2 MG/DL (3.5-7.2); eCRCL 15 ML/MIN; eGFR 20 ML/MIN
[2024-05-30 16:52] VITALS: BP 175/76; PULSE 72; RESP 16
== END 2024-05-30 16:56 | disposition home or self-care (01) ==
LOC: ER 12:38
DX: M1A.9XX1 Chronic gout, unspecified, with tophus (tophi) (principal); I12.9 Hypertensive chronic kidney disease with stage 1 through stage 4 chronic kidney disease, or unspecified chronic kidney disease; E11.22 Type 2 diabetes mellitus with diabetic chronic kidney disease; N18.9 Chronic kidney disease, unspecified; I25.10 Atherosclerotic heart disease of native coronary artery without angina pectoris; I25.2 Old myocardial infarction; F10.90 Alcohol use, unspecified, uncomplicated; Z79.82 Long term (current) use of aspirin; Z79.899 Other long term (current) drug therapy; Z87.442 Personal history of urinary calculi; Y90.9 Presence of alcohol in blood, level not specified
CPT/HCPCS: 36415; 73200; 80053; 83605; 84145; 84550; 85025; 85610; 85651; 85730; 86140; 87040; 99284

== ENCOUNTER 2025-02-27 18:09 | Inpatient (IN) | payer MEDICAID ==
[~2025-02-27] VITALS: Ht 167.6 cm; Wt 58.6 kg
--- NOTE | 2025-02-27 18:17 | ELECTROCARDIOGRAPH REPORT ---
[facility] Test Date: 2025-02-27 Test Time: 18:14:51 Pat Name: DELONTE STEWART Department: EMERGENCY ROOM Room: Gender: M Application Support: : 1935 Requested By: RAHEEM FERNÁNDEZ Order Number: [id number] Reading MD: Dr. Fish Spring Measurements Intervals [place] Rate: 97 P: 0 HI: 0 QRS: 150 QRSD: 124 T: 36 QT: 381 QTc: 484 Interpretive Statements Atrial fibrillation Ventricular premature complex Right bundle branch block Electronically Signed On 02-27-2025 20:01:[address] Fish Spring Please click the below link to view image of tracing.
--- NOTE | 2025-02-27 18:37 | RADIOLOGY REPORT ---
CHEST RADIOGRAPH INDICATION: CP TECHNIQUE: Single frontal view of the chest was obtained COMPARISON: CHEST,SINGLE VIEW on DOS: 11/19/20, CHEST,SINGLE VIEW on DOS: 01/28/20 FINDINGS: Lines and Tubes: None Lungs: Diffuse interstitial prominence. Right mid to lower lung zone opacity. Indistinctness of bilateral hemidiaphragm. No pneumothorax. Cardiomediastinal contours: Heart size is within normally mild atherosclerotic calcification uncoiling of the aorta. Cardiac Loop recorder is noted overlying the left lower lung zone. Bones: No acute osseous abnormality. IMPRESSION: Interstitial prominence which may represent pulmonary vascular congestion/ atypical pneumonia . Right mid to lower lung zone opacity which may represent pneumonia. Small bilateral pleural effusions with associated atelectasis.
[2025-02-27 18:50] LABS: MEAN PLATELET VOLUME 7.6 FL (7.4-10.4); RED CELL DISTRIBUTION WIDTH 17.8 % (11.5-14.5)
[2025-02-27 19:12] LABS: CREATININE 2.49 MG/DL (0.60-1.10); PRO BRAIN NATRIURETIC PEPTIDE 4131 PG/ML (0-450); TOTAL CARBON DIOXIDE 23.4 MMOL/L (24-32); eCRCL 17 ML/MIN; eGFR 25 ML/MIN
--- NOTE | 2025-02-27 19:27 | Physician Documentation ---
History of Present Illness ~ Chief Complaint: Shortness of Breath Stated Complaint: UNABLE TO WALK/SOB Time Seen by MD: 19:16 OK to notify your PCP?: Yes Primary Medical Doctor: Dr. Bennett Source: patient, RN/, RN notes reviewed, old records Mode of Arrival: POV Exam Limitations: no limitations HPI This patient had a heart attack back in 2018 was put on Eliquis but then later was removed. Patient was restarted this September not sure why patient was told they needed a pacemaker was sent to [facility] apparently a loop monitor was placed instead. Patient was also told that they may need vascular surgery because of the lower extremity pain. Patient does have a history of gout but that is been in the hands not the knees he does have aches and pains knee pain at rest but when he walks he has severe calf pain as well. Denies having pale extremities. Family does not know whether he has had vascular ultrasounds. Does not know if he has had CT angiograms in the past does have chronic renal insufficiency with a creatinine above two. Patient came in because he is just having severe profound exertional dyspnea he can not walk 6 ft to go to the bathroom without significant shortness of breath. He does have a history of heart failure echocardiogram has been performed in the past they do not know his function. Compliant with his medications. He is not complaining of any chest pain at this time but does have a heaviness when he walks. He denies PND or orthopnea. Medication Reconciliation Allergies: Coded Allergies: No Known Allergies (Unverified , 02/27/25) Scheduled Aspirin (Aspirin EC), 1 TABLET PO DAILY, (Reported) Atorvastatin Calcium* (Lipitor*), 1 TABLET PO HS, (Reported) Carvedilol (Carvedilol), 1 TABLET PO BID, (Reported) Furosemide (Lasix), 1 TAB PO DAILY, (Reported) Hydralazine HCl (Hydralazine HCl), 1 TAB PO Q8H, (Reported) Isosorbide Mononitrate (Isosorbide Mononitrate ER), 1 TAB PO BID, (Reported) Discontinued Medications Brimonidine Tartrate/Timolol (Combigan Eye Drops), 1 DROP LEFTEYE BID, (Reported) Discontinued Reason: patient no longer taking Past Medical History Past Medical History: Coronary Artery Disease, Hypertension, Myocardial Infarction, Vascular Disease, Chronic Kidney Disease, Kidney Stones, Diabetes, Psoriasis Past Surgical History: angioplasty Alcohol Use: Heavy Drug Use: none Lives with: Family Lives In: Home Occupation: retired Review of Systems All Other Systems at this time: Reviewed and Negative Physical Exam Vital Signs: RN Vital Signs have been reviewed: Yes, Temperature: 97.8, Source: Temporal, Heart Rate: 110, Respiratory Rate: 20, BP: 172/79, Pulse Oximetry: 97, Weight: 58.600 Oxygen Flow Rate: 0 Physical Exam General: The patient is well developed, thin and frail, nontoxic appearing and is in no acute distress. Skin: [place], warm and dry with no rashes. HEENT: Head was normocephalic and atraumatic. Eyes - pupils equal, round, reactive to light and accommodation. Extraocular movements were intact. Conjunctivae were nonicteric. The mouth and oropharynx were clear with moist mucous membranes. There were no pharyngeal exudates or erythema. Neck: Supple and nontender. There was no jugular venous distention, lymphadenopathy, thyromegaly or masses. Chest: lungs have short shallow breath sounds of trace crackles at base. No wheezes, or rhonchi. No accessory muscle use. No dullness to percussion. Heart: Rate regular and rhythmic. S1, S2. No murmurs. Palpation of the chest wall was normal. No rubs or thrills. Abdomen: Soft, nontender and nondistended. Positive bowel sounds. No guarding or rebound. No hepatosplenomegaly or palpable masses. Extremities: bilateral lower extremities with chronic venous stasis changes. No cyanosis, clubbing or edema. The patient moves all extremities. Pulses were equal and symmetric. Neurologic: motor sensory are grossly intact. Psychologic: The patient was oriented to person, place and time. The patient demonstrated appropriate judgement and insight. Procedures Ultrasound Ultrasound: other (VASCULAR ULTRASOUND) Progress Progress Note 22:04: Case was discussed with the resident hospitalist who kindly agrees to evaluate patient for possible admission. Results/Orders Results/Orders Orders - FISH SPRING MD Echocardiogram (02/27/25 20:44) Ct Chest (02/27/25 20:55) Vl Arterial (02/27/25 21:08) Culture Blood (02/27/25 21:34) Page Hospitalist (02/27/25 21:43) Fill Out Med Reconciliation (02/27/25 21:43) Md To Page (02/27/25 21:44) Vl Nasreen (02/27/25 20:10) Completed Orders - FISH SPRING MD Ct Chest (02/27/25 20:55) Vl Arterial (02/27/25 21:08) Procalcitonin (02/27/25 21:34) Vancomycin/Ns 1 Gm Add-[place] (Vancomyc (02/27/25 21:35) Ceftriaxone 2gm/D5w 50ml Bag (Rocephin 2 (02/27/25 21:35) Lacticsepsis (02/27/25 21:34) Vl Nasreen (02/27/25 20:10) Vital Signs 02/27/25 02/27/25 02/27/25 18:12 20:17 20:35 Temp 97.8 97.8 Pulse 110 75 Resp 20 20 B/P (MAP) 172/79 185/73 (110) Pulse Ox 97 99 97 O2 Delivery Room Air* O2 Flow Rate 0 0 0 FiO2 21 21 Laboratory Tests Test 02/27/25 18:31 02/27/25 20:21 02/27/25 21:34 02/27/25 21:57 White Blood Count 7.8 Red Blood Count 3.08 L Hemoglobin 9.6 L Hematocrit 29.7 L Mean Corpuscular Volume 96.3 Mean Corpuscular Hemoglobin 31.0 Mean Corpuscular Hemoglobin Concent 32.2 L Red Cell Distribution Width 17.8 H Platelet Count 235 Mean Platelet Volume 7.6 Neutrophils (%) (Auto) 66.9 Lymphocytes (%) (Auto) 14.5 L Monocytes (%) (Auto) 9.0 Eosinophils (%) (Auto) 8.7 H Basophils (%) (Auto) 0.9 Neutrophils # (Auto) 5.2 Lymphocytes # (Auto) 1.1 Monocytes # (Auto) 0.7 Eosinophils # (Auto) 0.7 Basophils # (Auto) 0.1 CBC Comment Sodium Level 144 Potassium Level 4.2 Chloride Level 112 H Carbon Dioxide Level 23.4 L Anion Gap 9 Blood Urea Nitrogen 35 H Creatinine 2.49 H Estimated GFR/1.73 m2 25 BUN/Creatinine Ratio 14.1 Glucose Level 175 H Hemoglobin A1c 5.7 Calcium Level 8.3 L Magnesium Level 2.1 Ferritin 67 Total Bilirubin 0.4 Direct Bilirubin 0.1 Aspartate Amino Transf (AST/SGOT) 11 Alanine Aminotransferase (ALT/SGPT) 10 L Alkaline Phosphatase 83 Troponin I High Sensitivity 67 67 77 *H Pro-B-Type Natriuretic Peptide 4131 H Total Protein 7.0 Albumin 2.6 L Globulin 4.4 H Albumin/Globulin Ratio 0.6 L Triglycerides Level 127 Cholesterol Level 164 LDL Cholesterol 77 HDL Cholesterol 59 Cholesterol/HDL Ratio 2.8 Thyroid Stimulating Hormone (TSH) 0.92 Chemistry Comments Troponin I High Sens Percent Delta 0 14 Troponin I Hi Sens Absolute Change 0 10 Procalcitonin 0.16 Lactic Acid Level 0.9 Microbiology Date/Time Source Procedure Growth Status 02/27/25 22:04 Blood Arm Right Blood Culture - Preliminary NEGATIVE (LESS THAN 24 HOURS) Resulted Re-Evaluation Re-evaluation : Re-Evaluation: Unchanged Progress Patient was seen and examined. Patient is given reassurance. Patient's laboratory work was obtained. Patient has been chronic anemia with a hemoglobin of 9.6 hematocrit of 29.7. Chemistries show a creatinine of 2.49 which is at the patient's baseline. ProBNP is elevated 4001 and 31. Troponin x2 were negative 3rd troponin is slightly elevated at 77 may be related to heart strain but also non ST-elevation MA is also considered. Patient's tox screen is negative urinalysis shows some trace hematuria but otherwise within normal limits. Patient received arterial ultrasounds which showed some vascular disease. CT of the chest was also obtained in the patient was found to have some pleural effusions although pneumonia can not be ruled out. For that reason the patient was given vancomycin as well as Rocephin. Echocardiogram is pending patient did not receive a CT angiogram because of the renal insufficiency will be evaluated by vascular surgery. Cardiac continuous monitor interpretation shows normal sinus rhythm heart rate 80s, no ectopy, normal, my interpretation. Pulse oximetry monitor interpretation shows normal oxygenation 98% room air, normal, my interpretation. 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 Fish Spring Measurements Intervals [place] Rate: 97 P: 0 RI: 0 QRS: 150 QRSD: 124 T: 36 QT: 381 QTc: 484 Interpretive Statements Atrial fibrillation Ventricular premature complex Right bundle branch block Electronically Signed On 02-27-2025 20:01:[address] Fish Spring Please click the below link to view image of tracing. EKG Date and Time:02/27/251813 Electronically Signed by: FISH SPRING MD Date and Time: 02/27/252000 NO PRIMARY CARE PROVIDER~ cc: ~ Chest X-Ray : Interpreted By: radiologist Views: 1 VIEW Additional Comments CHEST RADIOGRAPH INDICATION: CP TECHNIQUE: Single frontal view of the chest was obtained COMPARISON: CHEST,SINGLE VIEW on DOS: 11/19/20, CHEST,SINGLE VIEW on DOS: FINDINGS: Lines and Tubes: None Lungs: Diffuse interstitial prominence. Right mid to lower lung zone opacity. Indistinctness of bilateral hemidiaphragm. No pneumothorax. Cardiomediastinal contours: Heart size is within normally mild atherosclerotic calcification uncoiling of the aorta. Cardiac Loop recorder is noted overlying the left lower lung zone. Bones: No acute osseous abnormality. IMPRESSION: Interstitial prominence which may represent pulmonary vascular congestion/ atypical pneumonia . Right mid to lower lung zone opacity which may represent pneumonia. Small bilateral pleural effusions with associated atelectasis. Electronically Signed by:PAMELA FINK DO Date & Time: 02/27/251834 Dictated by: PAMELA FINK DO Dictation date and time: 02/27/251825 Primary Care Provider: NO PRIMARY CARE PROVIDER cc: RAHEEM FERNÁNDEZ MD ~ CT : Interpreted By: radiologist CT: chest Impression EXAM: CT CT CHEST History: dyspnea , mass Comparison Study: DI CHEST,SINGLE VIEW on DOS: 02/27/25, CHEST,SINGLE VIEW on DOS: 11/19/20, CHEST,SINGLE VIEW on DOS: 01/28/20 TECHNIQUE: Multidetector CT of the chest was performed. Imaging was performed without IV contrast. Axial, coronal, and sagittal multiplanar reformats were obtained from the axial data set by the technologist. Radiation Dose : CTDI vol 9.6 mGy, DLP 335.9 mGy*cm. FINDINGS: Evaluation is degraded by respiratory motion. Lower neck: 2.3 cm cyst within the left thyroid gland. Lungs /pleura: There are small bilateral loculated pleural effusions with adjacent opacity. There is a 2.9 cm masslike opacity along the right middle lobe fissure which could reflect loculated fluid or lesion. There is Interlobular septal thickening most pronounced within the lower lobes. There is bilateral lower lobe bronchial wall thickening. Heart/Great vessels: There is cardiomegaly. There is a trace pericardial effusion. There are severe coronary artery calcifications versus stents. There are moderate atherosclerotic calcifications about the aorta. Mediastinum: Unremarkable. Soft tissues/Bones: Unremarkable Upper abdomen: Unremarkable. IMPRESSION: 1. Loculated small yftgq-wlbqpbg-wbex-left pleural effusion with adjacent opacity. Findings as above suggestive of pulmonary vascular congestion in the appropriate clinical setting. Superimposed infectious / inflammatory process cannot be excluded. 2. 2.9 cm right-sided perifissural opacity likely reflects loculated fluid though a lesion cannot be entirely excluded. Comparison with outside imaging is suggested in assessing acuity and interval change. A posttreatment follow-up is suggested in further assessment. 3. Additional findings as detailed. Electronically Signed by:IVETH MEDEIROS MD Date & Time: 02/27/252125 Dictated by: IVETH MEDEIROS MD Dictation date and time: 02/27/252125 Primary Care Provider: NO PRIMARY CARE PROVIDER cc: FISH SPRING MD ~ Vascular #1: Interpreted By: radiologist Impression The above named patient was referred for a PHYSIOLOGIC ARTERIAL DOPPLER EVALUATION. The evaluation includes blood pressures, ankle brachial indices (NASREEN), and segmental Doppler waveform analysis at rest and post exercise when applicable. Toe brachial indices (TBI) taken when necessary. Patient ER Egaation: Ankle to Brachial Index Indieations Claudication Risk Factors History of PAD: Bilaterally Diabetes MA Pressures/Indices Right NASREEN Left NASREEN Brachial 197/89mmHg Brachial IVmmHg Ankle(PT) 198mmHg 1.0 Ankle(PT) 114mmHg Ankle(DP) 188mmHg Ankle(DP) 142mmHg 0.72 CONCLUSION 1. Right Ankle Brachial index: 1.0 2. Left Ankle Brachial Index: 0.72 Dictated by:YAMILEX HUERTAS MD Dictation date and time:02/27/252228 Electronically Signed by: YAMILEX HUERTAS MD Date and Time: 02/27/252228 Transcribed: [facility]AD Transcribed: NO PRIMARY CARE PROVIDER~ cc: YAMILEX HUERTAS MD; FISH SPRING MD ~ Vascular #2: Vascular Study: lower extremity arterial Impression Lower extremity arterial report RLE: Elevated velocities noted within the right prx OIL EXTRACTOR suggesting possible inflow disease. Moderate it is stenosis noted in the right mid SFA LLE: The left OIL EXTRACTOR appears to demonstrate retrograde flow large collateral noted and visually appears to be feeding the OIL EXTRACTOR/SFA/PSA. Moderate stenosis noted in the left mid SFA. Heart Score: Heart Score Response (Comments) Value History Moderate Suspicious 1 EKG Repolarization Disturb 1 Age >65 2 Risk Factors >3 or Hx ASHD 2 Troponin 1-2 x's Normal limit 1 Total 7 Medical Decision Making Additional information obtaine: old records Findings Patient was found to have pleural effusions, possible pneumonia pneumonia femoral insufficiency, accelerated hypertension and elevated troponins Heart Score: 7 Differential Dx:Considerations: Include: anxiety, asthma, bronchitis, cardiogenic shock, CHF, COPD, dysrhythmia, hypertension, accelerated, hypertension, essential, hypertension, malignant, hyperventilation, hyponatremia, myocardial infarction, panic attack, pneumonia, pneumonitis, pneumothorax, PSVT, pulmonary embolism, respiratory distress, respiratory failure, sinusitis, upper resp. infection, other Departure Disposition: ADMITTED INPATIENT Admitted to Inpatient Unit: yes, to hospitalist Admission Level of Care: PCU with Tele Impression: Primary Impression: Dyspnea Qualified Codes: R06.09 - Other forms of dyspnea Additional Impressions: Claudication Chronic renal insufficiency Acute on chronic heart failure Qualified Codes: I50.43 - Acute on chronic combined systolic (congestive) and diastolic (congestive) heart failure Right-sided pneumonia Pleural effusion Elevated troponin Condition: Guarded Referrals: NO PRIMARY CARE PROVIDER (PCP) Education Educated: Patient Educated regarding: diagnosis, need for follow up Signature Scribe Signature: Scribed for Fish Spring MD by Krista Vaughan . 02/27/25 21:44 Attestation: The note accurately reflects work and decisions made by me.Fish Spring MD 02/27/25 19:27 FISH SPRING MD Feb 27, 2025 19:27 KRISTA SPRING Feb 27, 2025 21:08
--- NOTE | 2025-02-27 21:28 | RADIOLOGY REPORT ---
EXAM: CT CT CHEST History: dyspnea , mass Comparison Study: DI CHEST,SINGLE VIEW on DOS: 02/27/25, CHEST,SINGLE VIEW on DOS: 11/19/20, CHEST,SINGLE VIEW on DOS: 01/28/20 TECHNIQUE: Multidetector CT of the chest was performed. Imaging was performed without IV contrast. Axial, coronal, and sagittal multiplanar reformats were obtained from the axial data set by the technologist. Radiation Dose : CTDI vol 9.6 mGy, DLP 335.9 mGy*cm. FINDINGS: Evaluation is degraded by respiratory motion. Lower neck: 2.3 cm cyst within the left thyroid gland. Lungs /pleura: There are small bilateral loculated pleural effusions with adjacent opacity. There is a 2.9 cm masslike opacity along the right middle lobe fissure which could reflect loculated fluid or lesion. There is Interlobular septal thickening most pronounced within the lower lobes. There is bilateral lower lobe bronchial wall thickening. Heart/Great vessels: There is cardiomegaly. There is a trace pericardial effusion. There are severe coronary artery calcifications versus stents. There are moderate atherosclerotic calcifications about the aorta. Mediastinum: Unremarkable. Soft tissues/Bones: Unremarkable Upper abdomen: Unremarkable. IMPRESSION: 1. Loculated small enxyb-khiyoyv-vusu-left pleural effusion with adjacent opacity. Findings as above suggestive of pulmonary vascular congestion in the appropriate clinical setting. Superimposed infectious / inflammatory process cannot be excluded. 2. 2.9 cm right-sided perifissural opacity likely reflects loculated fluid though a lesion cannot be entirely excluded. Comparison with outside imaging is suggested in assessing acuity and interval change. A posttreatment follow-up is suggested in further assessment. 3. Additional findings as detailed.
[2025-02-27] MEDS: vancomycin/NS 1 GM ADD-VANTAGE 250 ML IV ONE (22:04)
[2025-02-27] MEDS: CefTRIAXone 2gm/D5W 50ml BAG 50 ML IV ONE (22:04)
[2025-02-27] MEDS ORDERED: potassium Cl 20 mEq SR tablet PO PRN ×2 (22:20)
[2025-02-27] MEDS ORDERED: mag hydrox/Alum hydrox/simeth 30ml oral suspension PO PRN (22:20)
[2025-02-27] MEDS ORDERED: magnesium sulf-water 2g/50mL 50 ML IV PRN (22:20)
[2025-02-27] MEDS ORDERED: magnesium sulf-water 4G/100mL 100 ML IV PRN (22:20)
[2025-02-27] MEDS ORDERED: potassium Cl 40MEQ/1/2NS 520ml 520 ML IV PRN (22:20)
[2025-02-27] MEDS ORDERED: magnesium hydroxide 30ml (MOM) UD suspension PO PRN (22:20)
[2025-02-27] MEDS ORDERED: magnesium Cl slow-release 64mg tablet PO PRN (22:20)
--- NOTE | 2025-02-27 22:31 | VASCULAR REPORT ---
The above named patient was referred for a PHYSIOLOGIC ARTERIAL DOPPLER EVALUATION. The evaluation includes blood pressures, ankle brachial indices (MARY ALICE), and segmental Doppler waveform analysis at rest and post exercise when applicable. Toe brachial indices (TBI) taken when necessary. Patient ER Egaation: Ankle to Brachial Index Indieations Claudication Risk Factors History of PAD: Bilaterally Diabetes AL Pressures/Indices Right MARY ALICE Left MARY ALICE Brachial 197/89mmHg Brachial IVmmHg Ankle(PT) 198mmHg 1.0 Ankle(PT) 114mmHg Ankle(DP) 188mmHg Ankle(DP) 142mmHg 0.72 CONCLUSION 1. Right Ankle Brachial index: 1.0 2. Left Ankle Brachial Index: 0.72
[2025-02-27] MEDS: furosemide 10 MG/1 ML 10ml inj IV ONE (22:39)
[2025-02-27] MEDS: PERFLUTREN PROTEIN-A MICROSPHR (Optison) 0.22 MG/ML 3ML VIAL IV ONE (23:30)
[2025-02-28] VITALS (11 sets, daily range): BP systolic 132–199; BP diastolic 52–82; PULSE 62–73; RESP 14–22; TEMP 97.1–99.6; O2SAT 94–97
[2025-02-28 00:03] LABS: CHOL/HDL RATIO 2.8 (0.00-4.99); LDL CHOLESTEROL 77 MG/DL (50-100)
[2025-02-28 00:22] LABS: % IRON SATURATION 20 % (11-46)
[2025-02-28] MEDS: hydrALAZINE 20mg/ml inj. IV PRN (00:22)
--- NOTE | 2025-02-28 00:36 | RADIOLOGY REPORT ---
CLINICAL INDICATION: I want left knee X ray TECHNIQUE: DI KNEE 3 VWS COMPARISON: None FINDINGS/IMPRESSION: : There is no evidence of acute fracture or dislocation. Soft tissues are unremarkable.
[2025-02-28 00:45] LABS: LEUKOCYTE ESTERASE ,URINE NEGATIVE (Neg); NITRITES, URINE NEGATIVE (Neg); OCCULT BLOOD,URINE MODERATE (Neg)
[2025-02-28 00:51] LABS: UA COLLECTION TYPE NON-SPECIFIED
[2025-02-28 00:52] LABS: MUCUS STRANDS NONE SEEN /LPF (Neg); SQUAMOUS EPITHELIAL CELL,UR NONE SEEN /LPF (FEW)
[2025-02-28 01:03] LABS: URINE AMPHETAMINE SCREEN NEGATIVE (Neg); URINE BARBITUATE SCREEN NEGATIVE (Neg); URINE BENZODIAZEPINES SCREEN NEGATIVE (Neg); URINE CANNABINOID SCREEN NEGATIVE (Neg); URINE COCAINE SCREEN NEGATIVE (Neg); URINE METHADONE SCREEN NEGATIVE (Neg); URINE OPIATE SCREEN NEGATIVE (Neg); URINE PHENCYCLIDINE SCREEN NEGATIVE (Neg)
--- NOTE | 2025-02-28 01:05 | HISTORY AND PHYSICAL-Residence ---
History & Physical Providers to CC Resident Creating Document: TERRY NAVA, RES ~ History of Present Illness Primary Medical Doctor: Dr. Bennett Reason for Admit\Complaint: Shortness of breast History of Present Illness An 89-year-old male with a past medical history of congestive heart failure with preserved ejection fraction and peripheral artery disease presented to the ED with progressive shortness of breath over the past few days, now occurring even with minimal exertion such as walking to the bathroom. He reports orthopnea but denies paroxysmal nocturnal dyspnea, recent weight gain, cough with sputum, chest pain, palpitations, syncope, abdominal pain, lower extremity edema, confusion, oliguria, flank pain, fever, nausea, or vomiting. The patient is on home Lasix therapy. Additionally, he complains of left lower extremity pain that worsens with standing and knee flexion; there is no tenderness on palpation and no sensory loss. ED ultrasound revealed an ankle-brachial index of 0.7 in the left lower extremity. Physical exam shows decreased pulsation in the left leg compared to the right, but no signs of acute limb ischemia. The pain is most consistent with degenerative joint disease rather than peripheral artery disease. The patient has a known history of PAD and previously deferred treatment recommended by Dr. Lee. Allergies: Coded Allergies: No Known Allergies (Unverified , 02/27/25) Home Medications Home Medications Active Reported Hydralazine HCl 100 Mg Tablet 1 Tab PO Q8H Carvedilol 6.25 Mg Tablet 1 Tablet PO BID Combigan Eye Drops (Brimonidine Tartrate/Timolol) 5 Ml Drops 1 Drop LEFTEYE BID Aspirin EC (Aspirin) 81 Mg Tablet.dr 1 Tablet PO DAILY Lasix (Furosemide) 20 Mg Tablet 1 Tab PO DAILY Isosorbide Mononitrate ER (Isosorbide Mononitrate) 120 Mg Tab.er.24h 1 Tab PO BID Lipitor* (Atorvastatin Calcium) 40 Mg Tablet 1 Tablet PO HS Past Medical History Past Medical History Coronary artery disease status post 2 stents placement in 2018 Atrial fibrillation Gout Psoriasis Congestive heart failure with unknown ejection fraction Stage IV CKD Past Surgical History Surgical History Comment Index finger surgery Stent placement for coronary artery disease in 2018 Past Social History Social History Comment Primary care physician-Dr.Aziz Dupree [facility] [employer]-patient did not remember the name but he has a appointment February Nephrology- Patient lives in home with granddaughter Use walker Quit smoking 14 years ago and previously used to smoke 1 and half pack a week Quit drinking alcohol and denies any marijuana or drug use Alcohol Use: Heavy Drug Use: None Lives with: Family Lives In: Home Occupation: retired ROS All Other Systems: Reviewed and Negative Exam Vitals: Vital Signs Date Time Temp Pulse Resp B/P (MAP) Pulse Ox O2 Delivery O2 Flow Rate FiO2 02/28/25 00:22 81 02/27/25 23:07 16 02/27/25 22:42 97.8 196/93 (127) 95 0 21 02/27/25 20:17 Room Air* General: Awake , alert, and oriented x4 HEENT: Atraumatic, normocephalic, EOMI, anicteric sclera ; pink conjunctiva Neck: Trachea midline. Supple, full range of motion, no JVD Cardiac: Irregular with no murmurs all over the precordium. Respiratory: Equal breath sounds bilaterally, mild bilateral bibasilar crackles are heard on auscultation, Chest wall is symmetric and without deformity. Gastrointestinal: Abdomen symmetric, non-distended, soft, non-tender, normal bowel sounds x4 quadrant, normoactive, no hepatosplenomegaly Neurological: Mental status exam: alert and consciousness, orientation, memory, speech - Cranial nerve test: Cranial nerves 2-12 intact - Motor system: Normal Nutrition, normal tone, Power 4/5, no involuntary movements - Sensory system: Intact - Reflex testing: Biceps, triceps and knee reflexes 2+ - Cerebellar: Normal Skin: Warm and dry Extremities : Multiple nodule are seen all over the wrist joint, Pain on extension of knee, no tenderness on palpation, no warmth is noted on palpation, mild bilateral lower pitting edema, peripheral pulses are felt +2 on right lower extremity and decreased on left lower extremity Psychiatric:Appropriate mood and affect, Diagnostic Data Last Recorded Lab Results: 02/27/25 [id number] Advance Care Planning Advanced Care plannin - 30 Minutes Additional Plan 89 years old male with past medical history of coronary artery disease status post stent placement, congestive heart failure with preserved ejection he is currently evaluated for Acute acute on chronic congestive heart failure with unknown ejection fracture Echocardiogram in 2020 shows LVEF of 60, RVSP of 45 mm Hg Patient takes Lasix p.o. at home NYHA-III Pro BNP-4000 Patient is normoactive at baseline, for past few days he noticed increasing shortness of even with minimal daily activities like going to bathroom, associated orthopnea but denies any PND or recent weight gain Patient is currently on room air. Chest x-ray-shows Bibasilar airspace disease, improved compared with the prior study. Pneumonia is not ruled out. Started metoprolol 50 mg p.o. b.i.d., given a dose of IV Lasix 40 mg and continue IV Lasix 40 mg b.i.d.., with strict input and output monitoring and water restriction Follow up with daily labs, echocardiogram, TSH Community-acquired pneumonia WBC-7.8, procalcitonin 0.16, Patient is currently on room Chest x-ray-shows Right mid to lower lung zone opacity which may represent pneumonia. Small bilateral pleural effusions with associated atelectasis. CT chest - Loculated small rimqb-lhtlaem-ucup-left pleural effusion with adjacent opacity. pulmonary vascular congestion. Superimposed infectious / inflammatory process cannot be excluded. 2.9 cm right-sided perifissural opacity likely reflects loculated fluid though a lesion cannot be entirely excluded. In ED patient received ceftriaxone and vancomycin Started IV ceftriaxone and azithromycin from tomorrow Follow up with blood culture, Troponinemia likely type 2 OR Patient denies any chest pain, troponin level / Follow up with repeat troponin History of atrial fibrillation [id number] Patient EKG shows-AFib with bifascicular block Maintaining a heart rate of 81 beats per minute Patient takes Eliquis 2.5 mg p.o. b.i.d. at home, given a dose of 2.5 mg p.o. Eliquis and continue home med after med rec Started on metoprolol Patient will be monitored in PCU with telemetry Coronary artery disease s/p stent placement Peripheral artery disease Patient has a history of coronary artery disease and his last it was in 2018 Patient also having a history of peripheral artery disease and few years ago it was diagnosed and Dr. Watt recommended surgery at the time but patient deferred Today ankle-brachial index-shows. Right Ankle Brachial index: 1.0 ,Left Ankle Brachial Index: 0.72 LDL-shows 77 Follow up with arterial ultrasound Given 1 dose of aspirin 81 mg, atorvastatin 40- Continue home med aspirin 81, atorvastatin 40 mg after med rec Note- Today patient complains leg pain when he stands up and it is more when leg is flexed it is more likely knee pain rather than leg pain and patient is currently not showing any signs of limb ischemia-consult Dr. Lee in a.m. Hypertension Patient is having high blood pressure at the time of presentation and it is between 170s to 190s Started metoprolol and IV hydralazine p.r.n. Normocytic normochromic anemia H&H-9.6/29.7 Iron study shows serum iron 33 low, TIBC 162 low,% saturation 20, ferritin is 66 Scheduled IV iron at 8:00 p.m Follow up with daily labs, PRBC if HGB less than 7 CKD stage IV Patient has a history of CKD, his baseline creatinine is 2.[address] arenas outpatient BUN-35, creatinine-2.49 Avoid nephrotoxic drugs and monitor daily CMP History of gout History of psoriasis Left Knee pain likely DJD Continue home med after med rec Follow up with x-ray of knee Advance care: I spent a total of 16 minutes reviewing various resuscitative measures/ACP with patient. The patient decided to be full Code Status: Full DVT prophylaxis: Eliquis 2.5 mg p.o. b.i.d. Analgesia/Sedation: More Line/tube: Peripheral Nutrition: Heart healthy PT: Ordered Prognosis: Guarded Disposition: Patient will be monitored in PCU with telemetry, continue home aspirin, atorvastatin, Eliquis after med rec. Patient complains of leg pain but is more prominence when knees flexed sit most likely etiology from knee likely degenerative joint disease, an ankle-brachial index of the left knee shows 0.7 and patient is currently not showing any signs of acute limb ischemia, consult Dr. Watt in am Terry Nava PGY1-Internal Medicine Resident I saw and discussed this pt care with the medicine team agree with assessment and plan Date of Service: Feb 28, 2025 Billing Provider: MICHAEL VARNER MD, SATISH, JOHN Feb 28, 2025 01:05 MICHAEL VARNER MD Feb 28, 2025 05:17
[2025-02-28] MEDS: aspirin 81mg, enteric-coated 1 TAB TABLET.DR PO ONE (01:26)
[2025-02-28 05:05] LABS: MEAN PLATELET VOLUME 8.2 FL (7.4-10.4); RED CELL DISTRIBUTION WIDTH 17.6 % (11.5-14.5)
[2025-02-28 05:24] LABS: CREATININE 2.45 MG/DL (0.60-1.10); TOTAL CARBON DIOXIDE 24.9 MMOL/L (24-32); eCRCL 18 ML/MIN; eGFR 25 ML/MIN
--- NOTE | 2025-02-28 05:46 | VASCULAR REPORT ---
[facility] Vascular Department [facility] [address] [place] [address] 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 : SADIQ SPRING, Preliminary Report The above named patient was referred for a NON-INVASIVE LOWER EXTREMITY ARTERIAL EVALUATION. The evaluation includes grayscale imaging, color flow Doppler and spectral analysis of the lower extermity arteries. Patient ER Claudication Risk Factors History of Lower Extremity PAD: Bilaterally Hypertension Diabetes DE VELOCITY AND DOPPLER WAVEFORM ANALYSIS RIGHT cm/se Waveform Severity LEFT cm/se Waveform Severity c c pCFA 273.0 Multiphasic pCFA dCFA 257.0 Multiphasic dCFA Retrograde Prof Fem 124.8 Multiphasic Prof Fem 24.4 Multiphasic Art Art. Fem Art 174.0 Multiphasic Fem Art 130.1 Monophasic Prox. Prox. Turbulent Fem Art 371.0 Multiphasic Moderate 50-79% Fem Art 247.0 Monophasic Moderate 50-79% Mid Mid. Fem Art 156.1 Multiphasic Fem Art 75.6 Monophasic Dist. Dist. Pop Art(AK) 134.6 Multiphasic Pop Art(AK) 58.4 Monophasic Pop Art(BK) 77.9 Multiphasic Pop Art(BK) 46.8 Monophasic STENCILING MACHINE TENDER Dist. 36.9 Multiphasic STENCILING MACHINE TENDER Dist. 52.5 Monophasic Per Art Dist. 40.4 Multiphasic Per Art Dist. 24.0 Monophasic JESU Dist. 84.0 Multiphasic JESU Dist. 39.0 Monophasic Critical Notification Physician Notified Date: 02/27/2025 Time: 22:37 Physician Name:MD Spring Impression: Right lower extremity: Elevated velocities noted within the right proximal common femoral artery suggesting possible inflow disease. Moderate stenosis noted in the right mid superficial femoral artery. Left lower extremity: The left common femoral artery appears to demonstrate retrograde flow. Large collateral noted and visually appears to be feeding the common femoral artery/superficial femoral artery/profunda femoral artery. Moderate stenosis noted in the left mid superficial femoral artery.
[2025-02-28] MEDS ORDERED: HYDROcodone/acetaminophen 5mg/325mg tablet PO PRN (06:35)
[2025-02-28] MEDS: docusate sod 100mg capsule PO SCH (07:41)
[2025-02-28] MEDS: HYDROcodone/acetaminophen 10/325mg tab PO PRN (07:43)
[2025-02-28] MEDS: azithromycin/NS 500mg/250ml 250 ML IV SCH (07:43)
[2025-02-28] MEDS: K and/or MAG REPLACEMENT MC SCH (07:48)
[2025-02-28] MEDS: ondansetron/PF 4mg/2ml inj IV PRN (09:30)
[2025-02-28] MEDS: CefTRIAXone/D5W-Rocephin 1gm 50 ML IV SCH (09:30)
--- NOTE | 2025-02-28 14:41 | PROGRESS NOTE- Residence ---
Progress Note - Resident Providers to CC Resident Creating Document: JUAREZ FOWLER RES ~ Antibiotic Timeout Antibiotic Ordered?: Yes Subjective Patient was seen and examined at bedside. He complains of chronic left knee pain. Patient reports improvement of the shortness of breath and cough. No other symptoms reported since admission. Objective Vital Signs Date Time Temp Pulse Resp B/P (MAP) Pulse Ox O2 Delivery O2 Flow Rate FiO2 02/28/25 11:00 97.4 65 18 162/63 (96) 94 Room Air 02/28/25 01:31 0 21 Result Diagram: 02/28/2542802/28/25428 Awake , alert, and oriented x4, no acute distress HEENT: Atraumatic, normocephalic, EOMI, anicteric sclera ; pink conjunctiva Neck: Trachea midline. Supple, full range of motion, no JVD Cardiac: Irregular with no murmurs all over the precordium. Respiratory: Equal breath sounds bilaterally, bibasilar crackles are heard on auscultation, Chest wall is symmetric and without deformity. Gastrointestinal: Abdomen symmetric, non-distended, soft, non-tender, normal bowel sounds x4 quadrant, normoactive, no hepatosplenomegaly Neurological: Mental status exam: alert and consciousness, orientation, memory, speech - Cranial nerve test: Cranial nerves 2-12 intact - Motor system: Normal Nutrition, normal tone, Power 5/5, no involuntary movements - Sensory system: Intact - Reflex testing: Biceps, triceps and knee reflexes 2+ - Cerebellar: Normal Skin: Severe dry and eczematous skin. Extremities : Trace pedal edema. Amputation of the right index finger. Left knee with minimal edema and tenderness to palpation. Plan Plan Assessment 89-year-old male with significant cardiovascular and renal comorbidities presenting with progressive dyspnea and orthopnea. 1. Acute on chronic congestive heart failure (HFpEF, 60%) Assessment - NYHA III, stage C - Symptoms: Dyspnea on minimal exertion, orthopnea - Exam: Bibasilar crackles, mild bilateral pitting edema - Labs: Pro-BNP 4000 - Imaging: CXR shows bibasilar airspace disease, small bilateral pleural effusions - Echo (2020): LVEF 60%, RVSP 71 mmHg Plan - decreased IV Lasix to 20 mg BID with strict I/O and daily weights - Fluid restriction - Monitor electrolytes and renal function daily - Continue carvedilol 6.25 mg b.i.d. - possible discharge tomorrow 2. Community-acquired pneumonia, covering Gram-positive and Gram-negative organisms Assessment - Imaging: CXR and CT chest show right-sided opacity, loculated pleural effusion - Labs: WBC 7.8, procalcitonin 0.16 - no sepsis criteria Plan - Continue IV ceftriaxone + azithromycin - Follow-up blood cultures - started on prednisone 40 mg daily 3. Troponinemia (likely Type 2 VT) Assessment - Troponin: 67 -> 61 -> 77 - No chest pain reported - Likely demand ischemia secondary to CHF and infection Plan - Monitor for chest pain or ECG changes - anticoagulation with Eliquis - continue atorvastatin 40 mg daily 4. Persistent atrial fibrillation (CHADS-VASc 5) Assessment - EKG: AFib with bifascicular block - controlled heart rate Plan - Continue Eliquis 2.5 mg b.i.d. - Continue carvedilol 6.25mg b.i.d. 5. CKD Stage IV - Baseline Cr ~2.4, current 2.49 - Avoid nephrotoxins, monitor renal function 6. Peripheral artery disease - MARY ALICE: Right 1.0, Left 0.72 - No acute limb ischemia - continue Eliquis and atorvastatin - alteration follow-up 7. Hypertension - uncontrolled - BP 031658 mmHg - continue hydralazine and Coreg - started on amlodipine 5 mg daily - clonidine 0.1 mg p.r.n. 8. Normocytic normochromic anemia, probably anemia from chronic disease - Hgb 9.6, Hct 29.7 - Iron studies: iron 33, TIBC 162, ferritin 67 - received IV iron today - outpatient follow-up 9. Other comorbidities CAD s/p stents (2018) Gout, psoriasis Left knee pain - outpatient follow-up Code Status: Full code DVT prophylaxis: Eliquis Analgesia/sedation: Morphine/[place] Nutrition: Heart healthy diet Prognosis: Guarded Disposition: Continue medical treatment. Anticipated discharge tomorrow. Patient was seen, examined and discussed with the attending physician Dr Spencer Date of Service: Feb 28, 2025 Billing Provider: ZACK SPENCER MD Common Visit Codes: [id number] INP/OBS CARE(HIGH) JUAREZ FOWLER, RES Feb 28, 2025 14:41 ZACK SPENCER MD Feb 28, 2025 18:09
--- NOTE | 2025-02-28 18:01 | CARDIOLOGY REPORT ---
APPROVED REPORT EXAM: Comprehensive 2D, Doppler, and color-flow Echocardiogram. Patient Location: 302 Blood Pressure: 164/58 mmHg Heart Rate: 64 bpm Rhythm: NSR Indications Abnormal EKG Loop Monitor CAD Hypertension Diabetes Troponin 77 Pro BNP 4131 No apricot washer per pt Previous echo 11/20/20 [facility] 60% EF ; RVSP 45 ; m MR 2D Dimensions LA Diam 4.1 cm IVSd 1.1 (0.7-1.1cm) LVDd 5.3 cm PWd 1.1 (0.7-1.1cm) IVSs 1.5 (0.8-1.2cm) LVDs 3.6 (2.5-4.0cm) Aortic Root(2D) 3.5 cm PWs 1.5 (0.8-1.2cm) LVOT Diameter 2.42 (1.8-2.4cm) LVEF(%) 61.1 (>50%) Ao Asc Diam. 3.01 cm IVC 18.08 mm FS (%) 33.0 % SV 84.2 ml CO 4.9 L/min M-Mode Dimensions MV EPSS 1.0 (<0.5cm) Aortic Valve AoV Peak Hay. 139.5 cm/s AoV VTI 37.8 cm AO Peak GR. 7.8 mmHg AO Mean GR. 4 mmHg LVOT VTI 24.72 cm LVOT Peak Hay. 98.1 cm/s LISBETH(VTI)/BSA 3.02 cm2/m2 LISBETH (VTI) 3.02 cm2 AV DI 0.65 % Mitral Valve MV E Velocity 119.5 cm/s MV Peak Gr. 8 mmHg MV DECEL TIME 140 ms MV A Velocity 135.6 cm/s MV PHT 52 ms E/A Ratio 0.9 MVA (PHT) 4.23 cm2 MR VMax 689.4 cm/s MV VMax 143.6 cm/s MR PG Max 190.1 mmHg TDI Medial E' P. V 6.11 cm/s E/Medial E' 19.6 Tricuspid Valve TR P. Velocity 389 cm/s RAP ESTIMATE 10 mmHg TR Peak Gr. 61 mmHg RVSP 71 mmHg Pulmonary Vein S1 Velocity 33.0 cm/s D2 Velocity 51.2 cm/s PVa Velocity 20.3 cm/s PVa Duration 72 msec LEFT VENTRICLE Normal LV size and wall thickness. Overall systolic function is normal. LVEF is 60%. RIGHT VENTRICLE RV appears mildly dilated with normal contractility. RVSP is estimated at 72 mmHG. ATRIA Left atrium is mildly dilated. AORTIC VALVE Trileaflet AV appears sclerotic without stenosis. Trace insufficiency by color and spectral flow Doppler. MITRAL VALVE Mild MV annular calcification without stenosis. Moderate regurgitation by color and spectral flow Doppler. TRICUSPID VALVE TV appears structurally normal with moderate regurgitation by color and spectral flow Doppler. PULMONIC VALVE Normal PV without stenosis, physiologic insufficiency by color and spectral flow Doppler. GREAT VESSELS The aortic root is normal in size. The ascending aorta is normal in size. The IVC is normal in size and collapses >50% with inspiration. PERICARDIUM There is no pericardial effusion. Other Information Study Quality: Adequate Conclusion Normal LV size and wall thickness. Overall systolic function is normal. LVEF is 60%. RV appears mildly dilated with normal contractility. RVSP is estimated at 72 mmHG. Left atrium is mildly dilated. Trileaflet AV appears sclerotic without stenosis. Trace insufficiency by color and spectral flow Doppler. Mild MV annular calcification without stenosis. Moderate regurgitation by color and spectral flow Doppler. TV appears structurally normal with moderate regurgitation by color and spectral flow Doppler. There is no pericardial effusion.
[2025-02-28] MEDS ORDERED: sodium ferric gluc complex inj 125 MG in normal saline 100ml IV soln 100 ML IV ONE (20:00)
[2025-02-28] MEDS: isosorbide mononitrate 30mg tab.SR.24H PO SCH (21:06)
[2025-02-28] MEDS: carvedilol 6.25mg tablet PO SCH (21:06)
[2025-03-01] VITALS (7 sets, daily range): BP systolic 87–167; BP diastolic 47–69; PULSE 64–77; RESP 9–24; TEMP 96.9–97.9; O2SAT 96–98
[2025-03-01 07:34] LABS: MEAN PLATELET VOLUME 8.1 FL (7.4-10.4); RED CELL DISTRIBUTION WIDTH 17.5 % (11.5-14.5)
[2025-03-01] MEDS ORDERED: aspirin 81mg, enteric-coated 1 TAB TABLET.DR PO SCH (08:00)
[2025-03-01 08:07] LABS: CREATININE 3.04 MG/DL (0.60-1.10); TOTAL CARBON DIOXIDE 26.6 MMOL/L (24-32); eCRCL 14 ML/MIN; eGFR 20 ML/MIN
[2025-03-01] MEDS: sodium ferric gluc complex inj 125 MG in normal saline 100ml IV soln 100 ML IV ONE (10:00)
[2025-03-01] MEDS ORDERED: APIX2.5T PO (11:26)
[2025-03-01] MEDS ORDERED: LEVO-65 PO (11:26)
--- NOTE | 2025-03-01 13:09 | PROGRESS NOTE- Residence ---
Progress Note - Resident Providers to CC Resident Creating Document: ZACK MATOS MD ~ Antibiotic Timeout Antibiotic Ordered?: Yes Subjective Patient was seen and examined at bedside. He still complains of chronic left knee pain, but has been able to walk. Patient reports progressive improvement of the shortness of breath and cough. No other symptoms reported since admission. He was going to be discharged today but physical therapy recommended post-acute care. Objective Vital Signs Date Time Temp Pulse Resp B/P (MAP) Pulse Ox O2 Delivery O2 Flow Rate FiO2 03/01/25 11:10 87/47 (60) 03/01/25 09:02 77 03/01/25 08:00 15 96 Room Air 03/01/25 06:00 97.2 02/28/25 01:31 0 21 Result Diagram: 03/01/25 0646 03/01/25 0646 Awake , alert, and oriented x4, no acute distress HEENT: Atraumatic, normocephalic, EOMI, anicteric sclera ; pink conjunctiva Neck: Trachea midline. Supple, full range of motion, no JVD Cardiac: Irregular with no murmurs all over the precordium. Respiratory: Equal breath sounds bilaterally, bibasilar crackles are heard on auscultation, Chest wall is symmetric and without deformity. Gastrointestinal: Abdomen symmetric, non-distended, soft, non-tender, normal bowel sounds x4 quadrant, normoactive, no hepatosplenomegaly Neurological: Mental status exam: alert and consciousness, orientation, memory, speech - Cranial nerve test: Cranial nerves 2-12 intact - Motor system: Normal Nutrition, normal tone, Power 5/5, no involuntary movements - Sensory system: Intact - Reflex testing: Biceps, triceps and knee reflexes 2+ - Cerebellar: Normal Skin: Severe dry and eczematous skin. Extremities : Trace pedal edema. Amputation of the right index finger. Left knee with minimal edema and tenderness to palpation. Plan Plan Assessment 89-year-old male with significant cardiovascular and renal comorbidities presenting with progressive dyspnea and orthopnea. 1. Acute on chronic congestive heart failure (HFpEF, 60%) Assessment - NYHA III, stage C - Symptoms: Dyspnea on minimal exertion, orthopnea - Exam: Bibasilar crackles, mild bilateral pitting edema - Labs: Pro-BNP 4000 - Imaging: CXR shows bibasilar airspace disease, small bilateral pleural effusions - Echo (2020): LVEF 60%, RVSP 71 mmHg Plan - continue IV Lasix to 20 mg BID with strict I/O and daily weights - Fluid restriction - Monitor electrolytes and renal function daily - Continue carvedilol 6.25 mg b.i.d. - clinically stable for discharge, patient will require rehab referral 2. Community-acquired pneumonia, covering Gram-positive and Gram-negative organisms Assessment - Imaging: CXR and CT chest show right-sided opacity, loculated pleural effusion - Labs: WBC 7.8, procalcitonin 0.16 - no sepsis criteria Plan - Continue IV ceftriaxone + azithromycin, day 2 - Follow-up blood cultures, growing Gram-negative rods - continue prednisone 40 mg daily 3. Troponinemia (likely Type 2 [place]) Assessment - Troponin: 67 -> 61 -> 77 - No chest pain reported - Likely demand ischemia secondary to CHF and infection Plan - Monitor for chest pain or ECG changes - anticoagulation with Eliquis - continue atorvastatin 40 mg daily 4. Persistent atrial fibrillation (CHADS-VASc 5) Assessment - EKG: AFib with bifascicular block - controlled heart rate Plan - Continue Eliquis 2.5 mg b.i.d. - Continue carvedilol 6.25mg b.i.d. 5. CKD Stage IV - Baseline Cr ~2.4, current 2.49 - Avoid nephrotoxins, monitor renal function 6. Peripheral artery disease - MARY ALICE: Right 1.0, Left 0.72 - No acute limb ischemia - continue Eliquis and atorvastatin - alteration follow-up 7. Hypertension - uncontrolled - BP 097785 mmHg - continue hydralazine and Coreg - started on amlodipine 5 mg daily - clonidine 0.1 mg p.r.n. 8. Normocytic normochromic anemia, probably anemia from chronic disease - Hgb 9.6, Hct 29.7 - Iron studies: iron 33, TIBC 162, ferritin 67 - received IV iron yesterday - outpatient follow-up 9. Other comorbidities CAD s/p stents (2018) Gout, psoriasis Left knee pain - outpatient follow-up Code Status: Full code DVT prophylaxis: Eliquis Analgesia/sedation: Morphine/[place] Nutrition: Heart healthy diet Prognosis: Guarded PT: Post-acute care Disposition: Stable for discharge, awaiting placement. Patient was seen, examined and discussed with the attending physician Dr Matos Date of Service: Mar 01, 2025 Billing Provider: JUAREZ FOWLER RES Common Visit Codes: [id number] INP/OBS CARE(HIGH) JUAREZ FOWLER RES Mar 01, 2025 13:09 ZACK MATOS MD Mar 01, 2025 16:32
[2025-03-02] VITALS (9 sets, daily range): BP systolic 111–145; BP diastolic 40–67; PULSE 61–81; RESP 9–25; TEMP 97.3–98; O2SAT 14–98
[2025-03-02 07:10] LABS: MEAN PLATELET VOLUME 8.8 FL (7.4-10.4); RED CELL DISTRIBUTION WIDTH 17.5 % (11.5-14.5)
[2025-03-02 07:22] LABS: CREATININE 3.83 MG/DL (0.60-1.10); TOTAL CARBON DIOXIDE 28.0 MMOL/L (24-32); eCRCL 11 ML/MIN; eGFR 15 ML/MIN
--- NOTE | 2025-03-02 12:19 | ELECTROCARDIOGRAPH REPORT ---
[facility] Test Date: 2025-03-02 Test Time: 12:17:56 Pat Name: DELONTE STEWART Department: [facility] 3S Room: [place] [id number] B Gender: M [employer]: Whit Beverly : 1935 Requested By: JUAREZ FOWLER Order Number: [id number] Reading MD: Dr. MACKENZIE Sampson Measurements Intervals [place] Rate: 70 P: 7 [place]: 309 QRS: 113 QRSD: 138 T: 56 QT: 444 QTc: 480 Interpretive Statements Sinus rhythm Prolonged [place] interval RBBB and LPFB Electronically Signed On 03-03-2025 14:33:[address] MACKENZIE Sampson Please click the below link to view image of tracing.
--- NOTE | 2025-03-02 16:16 | PROGRESS NOTE- Residence ---
Progress Note - Resident Providers to CC Resident Creating Document: JUAREZ FOWLER RES ~ Antibiotic Timeout Antibiotic Ordered?: Yes Subjective Patient was seen and examined at bedside. He complains of chronic left knee pain, stable. Patient reports progressive improvement of the shortness of breath and cough. No other symptoms since admission. Physical therapy recommended post acute care and he is awaiting placement. Hemoglobin was low but he denied hematemesis, hematochezia or melena. Objective Vital Signs Date Time Temp Pulse Resp B/P (MAP) Pulse Ox O2 Delivery O2 Flow Rate FiO2 03/02/25 11:00 97.3 81 21 131/50 (77) 93 Room Air 02/28/25 01:31 0 21 Result Diagram: 03/02/25 0610 03/02/25 0610 Awake , alert, and oriented x4, no acute distress HEENT: Atraumatic, normocephalic, EOMI, anicteric sclera ; pink conjunctiva Neck: Trachea midline. Supple, full range of motion, no JVD Cardiac: Irregular with no murmurs all over the precordium. Respiratory: Equal breath sounds bilaterally, bibasilar crackles are heard on auscultation, Chest wall is symmetric and without deformity. Gastrointestinal: Abdomen symmetric, non-distended, soft, non-tender, normal bowel sounds x4 quadrant, normoactive, no hepatosplenomegaly Neurological: Mental status exam: alert and consciousness, orientation, memory, speech - Cranial nerve test: Cranial nerves 2-12 intact - Motor system: Normal Nutrition, normal tone, Power 5/5, no involuntary movements - Sensory system: Intact - Reflex testing: Biceps, triceps and knee reflexes 2+ - Cerebellar: Normal Skin: Severe dry and eczematous skin. Extremities : Trace pedal edema. Amputation of the right index finger. Left knee with minimal edema and tenderness to palpation. Plan Plan Assessment 89-year-old male with significant cardiovascular and renal comorbidities presenting with progressive dyspnea and orthopnea. 1. Acute on chronic congestive heart failure (HFpEF, 60%) - improving Assessment - NYHA III, stage C - Symptoms: Dyspnea on minimal exertion, orthopnea - Exam: Bibasilar crackles, mild bilateral pitting edema - Labs: Pro-BNP 4000 - Imaging: CXR shows bibasilar airspace disease, small bilateral pleural effusions - Echo (2020): LVEF 60%, RVSP 71 mmHg Plan - continue IV Lasix to 20 mg BID with strict I/O and daily weights - Fluid restriction - Monitor electrolytes and renal function daily - decrease carvedilol to 3.125 mg b.i.d. - clinically stable for discharge, patient will require rehab referral 2. Community-acquired pneumonia, covering Gram-positive and Gram-negative organisms Assessment - Imaging: CXR and CT chest show right-sided opacity, loculated pleural effusion - Labs: WBC 7.8, procalcitonin 0.16 - no sepsis criteria Plan - Continue IV ceftriaxone + azithromycin, day 3 - Follow-up blood cultures, growing Gram-negative rods - continue prednisone 40 mg daily 3. Troponinemia (likely Type 2 [place]) Assessment - Troponin: 67 -> 61 -> 77 - No chest pain reported - Likely demand ischemia secondary to CHF and infection Plan - Monitor for chest pain or ECG changes - anticoagulation with Eliquis - continue atorvastatin 40 mg daily 4. Persistent atrial fibrillation (CHADS-VASc 5) Assessment - EKG: AFib with bifascicular block - controlled heart rate with intermittent bradycardia Plan - Continue Eliquis 2.5 mg b.i.d. - decrease carvedilol 3.125mg b.i.d. 5. CKD Stage IV - Baseline Cr ~2.4, current 2.49 - Avoid nephrotoxins, monitor renal function 6. Peripheral artery disease - MARY ALICE: Right 1.0, Left 0.72 - No acute limb ischemia - continue Eliquis and atorvastatin - alteration follow-up 7. Hypertension - uncontrolled - decreased hydralazine to 25mg q8h and Coreg to 3.125 mg b.i.d. - continue amlodipine 5 mg daily 8. Normocytic normochromic anemia, probably anemia from chronic disease - Hgb 7.2, Hct 21.7 - Iron studies: iron 33, TIBC 162, ferritin 67 - repeat new H&H, transfuse if Hb <7.0 - outpatient follow-up 9. Other comorbidities CAD s/p stents (2018) Gout, psoriasis Left knee pain - outpatient follow-up Code Status: Full code DVT prophylaxis: Eliquis Analgesia/sedation: Morphine/[place] Nutrition: Heart healthy diet Prognosis: Guarded PT: Post-acute care Disposition: Stable for discharge, awaiting placement. Patient was seen, examined and discussed with the attending physician Dr Spencer Date of Service: Mar 02, 2025 Billing Provider: ZACK SPENCER MD Common Visit Codes: [id number] INP/OBS CARE(HIGH) JUAREZ FOWLER, JOHN Mar 02, 2025 16:16 ZACK SPENCER MD Mar 02, 2025 18:56
[2025-03-02 16:35] LABS: MEAN PLATELET VOLUME 8.7 FL (7.4-10.4); RED CELL DISTRIBUTION WIDTH 17.3 % (11.5-14.5)
[2025-03-03 02:00] VITALS: BP 116/51; PULSE 63; RESP 15; TEMP 97.6; O2SAT 97
[2025-03-03 06:00] VITALS: BP 118/49; PULSE 63; RESP 16; TEMP 97.4; O2SAT 98
[2025-03-03 07:16] LABS: MEAN PLATELET VOLUME 8.9 FL (7.4-10.4); RED CELL DISTRIBUTION WIDTH 17.7 % (11.5-14.5)
[2025-03-03 07:29] LABS: CREATININE 3.49 MG/DL (0.60-1.10); TOTAL CARBON DIOXIDE 25.4 MMOL/L (24-32); eCRCL 12 ML/MIN; eGFR 17 ML/MIN
[2025-03-03 08:00] VITALS: RESP 16; O2SAT 96
[2025-03-03 11:00] VITALS: BP 125/44; PULSE 64; RESP 20; TEMP 97.4; O2SAT 99
--- NOTE | 2025-03-03 15:46 | DISCHARGE SUMMARY-Residence ---
Discharge Summary Providers to CC Resident Creating Document: JUAREZ FOWLER RES ~ Discharge Summary Admission Diagnosis: CHF exacerbation Hospital Course DATE OF ADMISSION: 02/27/25 DATE OF DISCHARGE: 03/03/25 Laboratory Tests Test 03/02/25 06:10 03/02/25 16:12 03/03/25 06:39 White Blood Count 4.7 X10'3 7.1 X10'3 4.5 X10'3 Red Blood Count 2.30 X10'6 2.47 X10'6 2.45 X10'6 Hemoglobin 7.2 g/dl 7.8 g/dl 7.7 g/dl Hematocrit 21.7 % 23.4 % 23.2 % Mean Corpuscular Volume 94.5 FL 94.8 FL 94.6 FL Mean Corpuscular Hemoglobin 31.4 PG 31.3 PG 31.2 PG Mean Corpuscular Hemoglobin Concent 33.3 g/dL 33.1 g/dL 33.0 g/dL Red Cell Distribution Width 17.5 % 17.3 % 17.7 % Platelet Count 152 X10'3 172 X10'3 157 X10'3 Mean Platelet Volume 8.8 FL 8.7 FL 8.9 FL Neutrophils (%) (Auto) 79.0 % 85.3 % Lymphocytes (%) (Auto) 12.8 % 8.9 % Monocytes (%) (Auto) 8.0 % 5.7 % Eosinophils (%) (Auto) 0 % 0 % Basophils (%) (Auto) 0.2 % 0.1 % Neutrophils # (Auto) 3.7 X10'3 3.8 X10'3 Lymphocytes # (Auto) 0.6 X10'3 0.4 X10'3 Monocytes # (Auto) 0.4 X10'3 0.3 X10'3 Eosinophils # (Auto) 0.0 X10'3 0.0 X10'3 Basophils # (Auto) 0.0 X10'3 0.0 X10'3 CBC Comment Sodium Level 141 MMOL/L 139 MMOL/L Potassium Level 5.2 MMOL/L 5.3 MMOL/L Chloride Level 107 MMOL/L 106 MMOL/L Carbon Dioxide Level 28.0 MMOL/L 25.4 MMOL/L Anion Gap 6 8 Blood Urea Nitrogen 70 MG/DL 84 MG/DL Creatinine 3.83 MG/DL 3.49 MG/DL Estimated GFR/1.73 m2 15 ML/MIN 17 ML/MIN BUN/Creatinine Ratio 18.3 24.1 Glucose Level 137 MG/DL 156 MG/DL Calcium Level 8.2 MG/DL 8.3 MG/DL Total Bilirubin 0.2 MG/DL 0.2 MG/DL Aspartate Amino Transf (AST/SGOT) 12 U/L 16 U/L Alanine Aminotransferase (ALT/SGPT) 8 U/L 13 U/L Alkaline Phosphatase 61 IU/L 64 IU/L Total Protein 5.9 G/DL 6.5 G/DL Albumin 2.2 G/DL 2.4 G/DL Globulin 3.7 G/DL 4.1 G/DL Albumin/Globulin Ratio 0.6 0.6 Chemistry Comments Hematology Comments Discharge Diagnosis\\Comment: 1. Acute on chronic congestive heart failure (HFpEF, 60%) - improving 2. Community-acquired pneumonia, covering Gram-positive and Gram-negative organisms 3. Troponinemia (likely Type 2 [place]) 4. Persistent atrial fibrillation (CHADS-VASc 5) 5. CKD Stage IV 6. Peripheral artery disease 7. Hypertension 8. Normocytic normochromic anemia, probably anemia from chronic disease 9. Other comorbidities CAD s/p stents (2018) Gout, psoriasis Left knee pain Operations\\Procedures: None Consultants: None Complications: None Condition on DC: Stable New Medications: Levofloxacin (Levofloxacin) 500 Mg Tablet 500 MG PO DAILY for 7 Days, #7 TAB Apixaban (Eliquis) 2.5 Mg Tablet 2.5 MG PO BID for 30 Days, #60 TAB Continued Medications: Atorvastatin Calcium* (Lipitor*) 40 Mg Tablet 1 TABLET PO HS, TABLET Carvedilol (Carvedilol) 6.25 Mg Tablet 1 TABLET PO BID Furosemide (Lasix) 20 Mg Tablet 1 TAB PO DAILY Hydralazine HCl (Hydralazine HCl) 100 Mg Tablet 1 TAB PO Q8H Isosorbide Mononitrate (Isosorbide Mononitrate ER) 120 Mg Tab.er.24h 1 TAB PO BID Discontinued Medications: Aspirin (Aspirin EC) 81 Mg Tablet.dr 1 TABLET PO DAILY, TABLET Discharge Summary: History of present illness Patient was admitted with the following HPI:"An 89-year-old male with a past medical history of congestive heart failure with preserved ejection fraction and peripheral artery disease presented to the ED with progressive shortness of breath over the past few days, now occurring even with minimal exertion such as walking to the bathroom. He reports orthopnea but denies paroxysmal nocturnal dyspnea, recent weight gain, cough with sputum, chest pain, palpitations, syncope, abdominal pain, lower extremity edema, confusion, oliguria, flank pain, fever, nausea, or vomiting. The patient is on home Lasix therapy. Additionally, he complains of left lower extremity pain that worsens with standing and knee flexion; there is no tenderness on palpation and no sensory loss. ED ultrasound revealed an ankle-brachial index of 0.7 in the left lower extremity. Physical exam shows decreased pulsation in the left leg compared to the right, but no signs of acute limb ischemia. The pain is most consistent with degenerative joint disease rather than peripheral artery disease. The patient has a known history of PAD and previously deferred treatment recommended by Dr. Lee." Hospital course 89-year-old male was admitted for acute on chronic HFpEF and community-acquired pneumonia. Patient was treated with IV Lasix and antibiotics. Troponin was mildly elevated most likely due to demand ischemia - type 2 [place]. He also has newly diagnosed AFib for which he was started on Eliquis and discontinued aspirin. He had a significant clinical improvement with almost complete resolution of the shortness of breath. During hospitalization he also complained about chronic left knee pain which can be managed outpatient. Patient has CKD and had elevated creatinine after IV Lasix which improved after the dose was decreased. Hospital course was otherwise uncomplicated and the patient can be discharged with outpatient follow-up. Chest x-ray Interstitial prominence which may represent pulmonary vascular congestion/ atypical pneumonia . Right mid to lower lung zone opacity which may represent pneumonia. Small bilateral pleural effusions with associated atelectasis. Knee x-ray There is no evidence of acute fracture or dislocation. Soft tissues are unremarkable. Arterial ultrasound Right lower extremity: Elevated velocities noted within the right proximal common femoral artery suggesting possible inflow disease. Moderate stenosis noted in the right mid superficial femoral artery. Left lower extremity: The left common femoral artery appears to demonstrate retrograde flow. Large collateral noted and visually appears to be feeding the common femoral artery/superficial femoral artery/profunda femoral artery. Moderate stenosis noted in the left mid superficial femoral artery. Vascular ultrasound 1. Right Ankle Brachial index: 1.0 2. Left Ankle Brachial Index: 0.[address] Lower neck: 2.3 cm cyst within the left thyroid gland. Lungs /pleura: There are small bilateral loculated pleural effusions with adjacent opacity. There is a 2.9 cm masslike opacity along the right middle lobe fissure which could reflect loculated fluid or lesion. There is Interlobular septal thickening most pronounced within the lower lobes. There is bilateral lower lobe bronchial wall thickening. Heart/Great vessels: There is cardiomegaly. There is a trace pericardial effusion. There are severe coronary artery calcifications versus stents. There are moderate atherosclerotic calcifications about the aorta. Echocardiogram Normal LV size and wall thickness. Overall systolic function is normal. LVEF is 60%. RV appears mildly dilated with normal contractility. RVSP is estimated at 72 mmHG. Left atrium is mildly dilated. Trileaflet AV appears sclerotic without stenosis. Trace insufficiency by color and spectral flow Doppler. Mild MV annular calcification without stenosis. Moderate regurgitation by color and spectral flow Doppler. TV appears structurally normal with moderate regurgitation by color and spectral flow Doppler. There is no pericardial effusion. Discharge physical exam Awake , alert, and oriented x4, no acute distress HEENT: Atraumatic, normocephalic, EOMI, anicteric sclera ; pink conjunctiva Neck: Trachea midline. Supple, full range of motion, no JVD Cardiac: Irregular with no murmurs all over the precordium. Respiratory: Equal breath sounds bilaterally, bibasilar crackles are heard on auscultation, Chest wall is symmetric and without deformity. Gastrointestinal: Abdomen symmetric, non-distended, soft, non-tender, normal bowel sounds x4 quadrant, normoactive, no hepatosplenomegaly Neurological: Mental status exam: alert and consciousness, orientation, memory, speech - Cranial nerve test: Cranial nerves 2-12 intact - Motor system: Normal Nutrition, normal tone, Power 5/5, no involuntary movements - Sensory system: Intact - Reflex testing: Biceps, triceps and knee reflexes 2+ - Cerebellar: Normal Skin: Severe dry and eczematous skin. Extremities : Trace pedal edema. Amputation of the right index finger. Left knee with minimal edema and tenderness to palpation. Discharge medications See below Discharge instructions Follow up with primary care physician in 1-2 weeks Take levofloxacin daily for seven days Take Eliquis 2.5 mg twice a day and stop aspirin Continue all other home medication including Lipitor, Coreg, Lasix, hydralazine and isosorbide Repeat CBC, CMP, ESR and procalcitonin in 5-7 days Come back in case of fever, chest pain, worsening shortness of breath or any concerning symptoms *Problems/Diagnosis: (1) Community acquired pneumonia Status: Acute (2) Acute on chronic heart failure Status: Acute Total Time Spent on D/C: > 30 Minutes Date of Service: Mar 03, 2025 Billing Provider: ZACK MATOS MD Common Visit Codes: 18831-LNX/[id number] DISCH DAY >30min Problem Qualifiers (1) Community acquired pneumonia: Laterality: unspecified laterality Qualified Codes: J18.9 - Pneumonia, unspecified organism (2) Acute on chronic heart failure: Heart failure type: combined systolic and diastolic Qualified Codes: I50.43 - Acute on chronic combined systolic (congestive) and diastolic (congestive) heart failure JUAREZ FOWLER, RES Mar 03, 2025 15:45 ZACK MATOS MD Mar 04, 2025 17:42
== END 2025-03-03 14:57 | disposition home health service (06) | DRG 194 ==
LOC: ER 18:09 → ED HOLD 22:20 → PCU 3S 02-28 01:30
PROVIDERS: ADMIT Internal Medicine; ATTEND Internal Medicine
DX: I13.0 Hypertensive heart and chronic kidney disease with heart failure and stage 1 through stage 4 chronic kidney disease, or unspecified chronic kidney disease (principal); J18.9 Pneumonia, unspecified organism; I21.A1 Myocardial infarction type 2; N18.4 Chronic kidney disease, stage 4 (severe); D63.8 Anemia in other chronic diseases classified elsewhere; I48.19 Other persistent atrial fibrillation; E11.22 Type 2 diabetes mellitus with diabetic chronic kidney disease; I50.43 Acute on chronic combined systolic (congestive) and diastolic (congestive) heart failure; E11.51 Type 2 diabetes mellitus with diabetic peripheral angiopathy without gangrene; M10.9 Gout, unspecified; I25.10 Atherosclerotic heart disease of native coronary artery without angina pectoris; J98.11 Atelectasis; I45.2 Bifascicular block; M25.562 Pain in left knee; I25.2 Old myocardial infarction; Z87.891 Personal history of nicotine dependence; Z95.5 Presence of coronary angioplasty implant and graft; Z87.442 Personal history of urinary calculi
CPT/HCPCS: 36415; 71045; 71250; 73562; 80048; 80053; 80061; 80076; 80305; 81001; 82728; 83036; 83540; 83550; 83605; 83735; 83880; 84145; 84443; 84466; 84484; 85025; 85027; 86885; 86900; 86901; 87040; 87081; 93005; 93306; 93922; 93925; 96365; 96368; 97161; 97530; 99285; G0378; J0360; J0456; J0696; J1938; J2270; J2405; J2916; J3373; J7030; J7040; J7512